=== PATIENT | female | born 1965 | race Caucasian/White ===

== ENCOUNTER 2019-10-12 18:05 | Inpatient (IN) ==
[2019-10-12] MEDS ORDERED: PROMETHAZINE 6.25 MG/50.25 ML BAG IV STA (18:17)
[2019-10-12] MEDS ORDERED: THIAMINE HCL 200 MG in SODIUM CHLORIDE 0.9% 50 ML IV STA (18:17)
[2019-10-12] MEDS ORDERED: SODIUM CHLORIDE 0.9% 1000ML 1,000 ML IV ONE ×2 (18:17→19:47)
[2019-10-12] MEDS ORDERED: LORazepam 1 MG/2 ML VIAL IV STA (18:17)
--- NOTE | 2019-10-12 18:30 | Emergency Department Note ---
Entered by Delia Benjamin acting as a scribe for History of Present Illness General Chief complaint: Mental Health Evaluation Stated complaint: MHID, ALCOHOL WITHDRAWL Time Seen by Provider: 10/12/19 18:08 Source: patient and EMS Mode of arrival: EMS Limitations: no limitations History of Present Illness Onset (ago): day(s) 1 Location: head Radiation: non-radiation Relieved By: + none Exacerbated By: + other (not drinking alcohol) Associated symptoms: + weakness and + other (+back pain, +urinary symptoms) Treatments prior to arrival: none The patient is a 54 year old male who presents to the ED with complaints of ETOH withdrawal. She was brought to the ED via EMS. She states she drank vodka and other store bought alcohol earlier today. She has been drinking every day for "awhile". She complains of back pain and states she feels weak. She denies any recent falls. She states she has experienced urinary symptoms. The patient was brought to the ED via EMS from the [facility], where she states "I just couldn't take the pain anymore". Home Medications Home Medications Medication Instructions Recorded Confirmed Type No Known Home Medications 10/13/19 10/13/19 History Allergies Allergy/AdvReac Type Severity Reaction Status Date / Time No Known Allergies Allergy Unknown Verified 10/13/19 03:34 Past Med/Surg History Medical History Alcohol abuse Depression Surgical History No history of previous surgery Family History Other Past medical history not known due to adoption Denies family history of Ovarian cancer Prostate cancer Myocardial infarction Breast cancer Colorectal cancer Social History Preferred Language: Korean marital status: Current Living Situation: Spouse and Family current occupational status: employed Feels Safe at Home: No Smoking Status: Current every day smoker Tobacco Type: cigarettes ; packs per day: 1 ; Hx Alcohol Use: No Hx Substance Use: No Dental Care, Regularly: No Seatbelt Use: always Review of Systems See HPI for pertinent positives & negatives. and A total of 10 systems reviewed and were otherwise negative Physical Exam Vital Signs Vital Signs - 24 hr 10/12/19 18:23 10/12/19 18:35 10/12/19 19:20 Temperature 36.7 C Temperature Source Oral Pulse Rate 100 H Pulse Rate [Bilateral Apical] 88 Pulse Rhythm Regular Pulse Strength Normal Respiratory Rate 18 20 Respiratory Effort / Characteristics Respiratory Depth Blood Pressure 128/78 Blood Pressure [Left Arm] 119/74 Blood Pressure Mean 94 Blood Pressure Mean [Left Arm] 89 Blood Pressure Position Lying Blood Pressure Position [Left Arm] Pulse Oximetry 93 95 96 Oxygen Delivery Method Room Air Room Air Room Air Sepsis Recent Fever Within 48 Hours No Sepsis New/Unexplained Change in Mental Status No Sepsis Action Taken by Nursing No Action Required 10/12/19 20:10 10/12/19 22:29 Temperature Temperature Source Pulse Rate Pulse Rate [Bilateral Apical] 87 91 H Pulse Rhythm Pulse Strength Respiratory Rate 20 16 Respiratory Effort / Characteristics Non-Labored Respiratory Depth Normal Blood Pressure Blood Pressure [Left Arm] 114/72 126/79 Blood Pressure Mean Blood Pressure Mean [Left Arm] 86 94 Blood Pressure Position Blood Pressure Position [Left Arm] Lying Pulse Oximetry 94 94 Oxygen Delivery Method Room Air Room Air Sepsis Recent Fever Within 48 Hours Sepsis New/Unexplained Change in Mental Status Sepsis Action Taken by Nursing GENERAL: The patient is awake and alert. The patient is very anxious. EYES: The conjunctivae are injected bilaterally. The pupils are dilated but reactive to light bilaterally. EARS, NOSE, MOUTH AND THROAT: The nose is without any evidence of any deformity. Mucous membranes are moist. Tongue is midline. NECK: The neck is nontender and supple. RESPIRATORY: Normal respiratory effort is noted there is no evidence of wheezing rhonchi or rales CARDIOVASCULAR: Regular rate and rhythm noted there no murmurs rubs or gallops normal S1 normal S2. GASTROINTESTINAL: The abdomen is moderately distended and diffusely tender. There is specific tenderness in the right upper and lower quadrants. BACK: No midline tenderness or or step-off noted range of motion in flexion extension as well as rotation no signs of muscle spasm noted MUSCULOSKELETAL/EXTREMITIES: There is no evidence of gross deformity full range of motion is noted in the hips and shoulders. SKIN: There is no obvious evidence of any rash. There are no petechiae, pallor or cyanosis noted. NEUROLOGIC: Patient is awake alert and oriented x3 strength is symmetric patellar reflexes are 2+ bilaterally PSYCH: The patient is awake and alert. She appears somewhat intoxicated and anxious. She is admitting to suicidal ideation. Course Course 1811: The patient was evaluated in room A9 and a complete history and physical were performed. 2199: The patient will be evaluated by mental health when she is clinically sober. Administered Medications Ioversol (Optiray 320 100ml) 94 ml IV ONCE PRN PRN Reason: Interaction Checking Stop: 10/16/19 19:56 Last Admin: 10/12/19 19:57 Dose: 94 ml Documented by: [id number] Discontinued Medications Thiamine HCl 200 mg/ Sodium (Chloride) 52 mls @ 208 mls/hr IV NOW STA Stop: 10/12/19 18:31 Last Infusion: 10/12/19 19:55 Dose: 0 mls/hr Documented by: [id number] Infusion: 10/12/19 19:54 Dose: 208 mls/hr Documented by: [id number] Admin: 10/12/19 19:44 Dose: 208 mls/hr Documented by: [id number] Sodium Chloride (Nss 1000ml) 1,000 mls @ 999 mls/hr IV .Q1H1M ONE Stop: 10/12/19 19:17 Last Infusion: 10/12/19 20:25 Dose: 0 mls/hr Documented by: [id number] Admin: 10/12/19 19:17 Dose: 999 mls/hr Documented by: [id number] Promethazine HCl (Phenergan) 6.25 mg in 50.25 mls @ 201 mls/hr IV NOW STA Stop: 10/12/19 18:31 Last Infusion: 10/12/19 19:43 Dose: 201 mls/hr Documented by: [id number] Admin: 10/12/19 19:17 Dose: 201 mls/hr Documented by: [id number] Lorazepam (Ativan) 1 mg in 2 mls @ 2 mls/min IV NOW STA Stop: 10/12/19 18:18 Last Admin: 10/12/19 19:17 Dose: 2 mls/min Documented by: [id number] Ceftriaxone Sodium (Rocephin) 1,000 mg in 50 mls @ 100 mls/hr IV NOW STA Stop: 10/12/19 19:55 Last Infusion: 10/12/19 20:26 Dose: 0 mls/hr Documented by: [id number] Admin: 10/12/19 19:55 Dose: 100 mls/hr Documented by: [id number] Magnesium Sulfate/Dextrose (Magnesium Sulfate / D5w) 1 gm in 100 mls @ 100 mls/hr IV Q1H MATTHEW Stop: 10/12/19 21:59 Last Infusion: 10/12/19 22:29 Dose: 0 mls/hr Documented by: [id number] Admin: 10/12/19 21:28 Dose: 100 mls/hr Documented by: [id number] Infusion: 10/12/19 21:26 Dose: 100 mls/hr Documented by: [id number] Admin: 10/12/19 20:26 Dose: 100 mls/hr Documented by: [id number] Sodium Chloride (Nss 1000ml) 1,000 mls @ 999 mls/hr IV .Q1H1M ONE Stop: 10/12/19 20:47 Last Infusion: 10/12/19 21:28 Dose: 0 mls/hr Documented by: [id number] Admin: 10/12/19 20:16 Dose: 999 mls/hr Documented by: [id number] Ketorolac Tromethamine (Toradol) 10 mg IV NOW ONE Stop: 10/13/19 00:27 Last Admin: 10/13/19 00:34 Dose: 10 mg Documented by: [id number] Medical Decision Making Differential Diagnosis Differential diagnosis includes etiologies such as alcohol intoxication, toxicologic, infection, hypoglycemia, electrolyte abnormalities, cardiac sources, intracerebral event, neurologic, as well as others were entertained. Medical Records Attestation: I reviewed the patient's medical records. Home Medications Current Medication List: was personally reviewed by me Laboratory Data Attestation: I reviewed the patient's lab results. Result diagrams: 10/12/19 18:59 10/12/19 18:59 Lab Results 10/12/19 10/12/19 10/12/19 Range/Units 18:55 18:55 18:59 WBC 5.39 (4.8-10.8) K/uL RBC 5.10 (4.2-5.4) M/uL Hgb 17.0 H (12.0-16.0) g/dL Hct 47.2 H (37-47) % MCV 92.5 (80-100) fL MCH 33.3 (25-34) pg MCHC 36.0 (32-36) g/dL RDW Std Deviation 48.8 H (36.4-46.3) fL RDW Coeff of Wilder 14.4 (11.5-14.5) % Plt Count 147 (130-400) K/uL MPV 10.6 H (7.4-10.4) fL Immature Gran % (Auto) 0.2 % Neut % (Auto) 46.2 % Lymph % (Auto) 43.6 % [place] % (Auto) 9.1 % Eos % (Auto) 0.2 % Baso % (Auto) 0.7 % Immature Gran # (Auto) 0.01 (0.00-0.02) K/uL Neut # (Auto) 2.49 (1.4-6.5) K/uL Lymph # (Auto) 2.35 (1.2-3.4) K/uL [place] # (Auto) 0.49 (0.11-0.59) K/uL Eos # (Auto) 0.01 (0-0.5) K/uL Baso # (Auto) 0.04 (0-0.2) K/uL PT INR APTT PTT Ratio Carboxyhemoglobin % THgb Sodium (136-145) mmol/L Potassium (3.5-5.1) mmol/L Chloride (98-107) mmol/L Carbon Dioxide (21-32) mmol/L Anion Gap (3-11) BUN (7-18) mg/dl Creatinine (0.6-1.2) mg/dl Est Cr Clr Drug Dosing ml/min Est GFR ( Amer) Est GFR (Non-Af Amer) BUN/Creatinine Ratio (10-20) Glucose (70-99) mg/dl Osmolality Calcium (8.5-10.1) mg/dl Magnesium (1.8-2.4) mg/dl Total Bilirubin (0.2-1) mg/dl AST (15-37) U/L ALT (12-78) U/L Alkaline Phosphatase (45-117) U/L Total Creatine Kinase (26-192) U/L Troponin I (0-0.045) ng/ml Total Protein (6.4-8.2) gm/dl Albumin (3.4-5.0) gm/dl Globulin (2.5-4.0) gm/dl Albumin/Globulin Ratio (0.9-2) Lipase (73-393) U/L HCG, Qual Urine Color Dark Yellow Urine Appearance Cloudy A (Clear) Urine pH 5.5 (4.5-7.5) Ur Specific [place] 1.018 (1.000-1.030) Urine Protein 1+ H (Negative) Urine Glucose (UA) Negative (Negative) Urine Ketones Trace H (Negative) Urine Blood Negative (Negative) Urine Nitrite Negative (Negative) Urine Bilirubin Negative (Negative) Urine Urobilinogen Negative (Negative) Ur Leukocyte Esterase 1+ H (Negative) Urine WBC (Auto) >30 H (0-5) /hpf Urine RBC (Auto) 0-4 (0-4) /hpf U Hyaline Cast (Auto) 1-5 (0-5) /lpf U Epithel Cells (Auto) >30 H (0-5) /lpf Urine Bacteria (Auto) 2+ H (Negative) Urine Mucus Present A (None Prsent) Salicylates Urine Opiates Screen Neg (Neg) Ur Methadone, Qual Neg (Neg) Acetaminophen Urine Barbiturates Neg (Neg) Ur Phencyclidine (PCP) Neg (Neg) U Amphetamin/Meth Scrn Neg (Neg) MDMA (Ecstasy) Screen Neg (Neg) U Benzodiazepines Scrn Neg (Neg) Ur Cocaine Metabolite Neg (Neg) U Marijuana (THC) Screen Neg (Neg) Ethyl Alcohol mg/dL (0-3) mg/dl 10/12/19 10/12/19 10/12/19 Range/Units 18:59 18:59 18:59 WBC (4.8-10.8) K/uL RBC (4.2-5.4) M/uL Hgb (12.0-16.0) g/dL Hct (37-47) % MCV (80-100) fL MCH (25-34) pg MCHC (32-36) g/dL RDW Std Deviation (36.4-46.3) fL RDW Coeff of Wilder (11.5-14.5) % Plt Count (130-400) K/uL MPV (7.4-10.4) fL Immature Gran % (Auto) % Neut % (Auto) % Lymph % (Auto) % [place] % (Auto) % Eos % (Auto) % Baso % (Auto) % Immature Gran # (Auto) (0.00-0.02) K/uL Neut # (Auto) (1.4-6.5) K/uL Lymph # (Auto) (1.2-3.4) K/uL [place] # (Auto) (0.11-0.59) K/uL Eos # (Auto) (0-0.5) K/uL Baso # (Auto) (0-0.2) K/uL PT Cancelled INR Cancelled APTT Cancelled PTT Ratio Cancelled Carboxyhemoglobin % THgb Sodium 136 (136-145) mmol/L Potassium 3.3 L (3.5-5.1) mmol/L Chloride 98 (98-107) mmol/L Carbon Dioxide 23 (21-32) mmol/L Anion Gap 15.0 H (3-11) BUN 13 (7-18) mg/dl Creatinine 0.71 (0.6-1.2) mg/dl Est Cr Clr Drug Dosing 80.6 ml/min Est GFR ( Amer) 111.9 Est GFR (Non-Af Amer) 96.6 BUN/Creatinine Ratio 17.6 (10-20) Glucose 89 (70-99) mg/dl Osmolality Calcium 8.7 (8.5-10.1) mg/dl Magnesium 1.5 L (1.8-2.4) mg/dl Total Bilirubin 0.6 (0.2-1) mg/dl AST 44 H (15-37) U/L ALT 33 (12-78) U/L Alkaline Phosphatase 115 (45-117) U/L Total Creatine Kinase 77 (26-192) U/L Troponin I < 0.015 (0-0.045) ng/ml Total Protein 8.0 (6.4-8.2) gm/dl Albumin 4.0 (3.4-5.0) gm/dl Globulin 4.0 (2.5-4.0) gm/dl Albumin/Globulin Ratio 1.0 (0.9-2) Lipase 77 (73-393) U/L HCG, Qual Urine Color Urine Appearance (Clear) Urine pH (4.5-7.5) Ur Specific [place] (1.000-1.030) Urine Protein (Negative) Urine Glucose (UA) (Negative) Urine Ketones (Negative) Urine Blood (Negative) Urine Nitrite (Negative) Urine Bilirubin (Negative) Urine Urobilinogen (Negative) Ur Leukocyte Esterase (Negative) Urine WBC (Auto) (0-5) /hpf Urine RBC (Auto) (0-4) /hpf U Hyaline Cast (Auto) (0-5) /lpf U Epithel Cells (Auto) (0-5) /lpf Urine Bacteria (Auto) (Negative) Urine Mucus (None Prsent) Salicylates Cancelled Urine Opiates Screen (Neg) Ur Methadone, Qual (Neg) Acetaminophen Cancelled Urine Barbiturates (Neg) Ur Phencyclidine (PCP) (Neg) U Amphetamin/Meth Scrn (Neg) MDMA (Ecstasy) Screen (Neg) U Benzodiazepines Scrn (Neg) Ur Cocaine Metabolite (Neg) U Marijuana (THC) Screen (Neg) Ethyl Alcohol mg/dL (0-3) mg/dl 10/12/19 10/12/19 10/12/19 Range/Units 18:59 18:59 18:59 WBC (4.8-10.8) K/uL RBC (4.2-5.4) M/uL Hgb (12.0-16.0) g/dL Hct (37-47) % MCV (80-100) fL MCH (25-34) pg MCHC (32-36) g/dL RDW Std Deviation (36.4-46.3) fL RDW Coeff of [place] (11.5-14.5) % Plt Count (130-400) K/uL MPV (7.4-10.4) fL Immature Gran % (Auto) % Neut % (Auto) % Lymph % (Auto) % [place] % (Auto) % Eos % (Auto) % Baso % (Auto) % Immature Gran # (Auto) (0.00-0.02) K/uL Neut # (Auto) (1.4-6.5) K/uL Lymph # (Auto) (1.2-3.4) K/uL [place] # (Auto) (0.11-0.59) K/uL Eos # (Auto) (0-0.5) K/uL Baso # (Auto) (0-0.2) K/uL PT INR APTT PTT Ratio Carboxyhemoglobin 7.2 % THgb Sodium (136-145) mmol/L Potassium (3.5-5.1) mmol/L Chloride (98-107) mmol/L Carbon Dioxide (21-32) mmol/L Anion Gap (3-11) BUN (7-18) mg/dl Creatinine (0.6-1.2) mg/dl Est Cr Clr Drug Dosing ml/min Est GFR ( Amer) Est GFR (Non-Af Amer) BUN/Creatinine Ratio (10-20) Glucose (70-99) mg/dl Osmolality Calcium (8.5-10.1) mg/dl Magnesium (1.8-2.4) mg/dl Total Bilirubin (0.2-1) mg/dl AST (15-37) U/L ALT (12-78) U/L Alkaline Phosphatase (45-117) U/L Total Creatine Kinase (26-192) U/L Troponin I (0-0.045) ng/ml Total Protein (6.4-8.2) gm/dl Albumin (3.4-5.0) gm/dl Globulin (2.5-4.0) gm/dl Albumin/Globulin Ratio (0.9-2) Lipase (73-393) U/L HCG, Qual Cancelled Urine Color Urine Appearance (Clear) Urine pH (4.5-7.5) Ur Specific [place] (1.000-1.030) Urine Protein (Negative) Urine Glucose (UA) (Negative) Urine Ketones (Negative) Urine Blood (Negative) Urine Nitrite (Negative) Urine Bilirubin (Negative) Urine Urobilinogen (Negative) Ur Leukocyte Esterase (Negative) Urine WBC (Auto) (0-5) /hpf Urine RBC (Auto) (0-4) /hpf U Hyaline Cast (Auto) (0-5) /lpf U Epithel Cells (Auto) (0-5) /lpf Urine Bacteria (Auto) (Negative) Urine Mucus (None Prsent) Salicylates Urine Opiates Screen (Neg) Ur Methadone, Qual (Neg) Acetaminophen Urine Barbiturates (Neg) Ur Phencyclidine (PCP) (Neg) U Amphetamin/Meth Scrn (Neg) MDMA (Ecstasy) Screen (Neg) U Benzodiazepines Scrn (Neg) Ur Cocaine Metabolite (Neg) U Marijuana (THC) Screen (Neg) Ethyl Alcohol mg/dL 236.0 H (0-3) mg/dl 10/12/19 10/12/19 10/12/19 Range/Units 18:59 20:50 20:50 WBC (4.8-10.8) K/uL RBC (4.2-5.4) M/uL Hgb (12.0-16.0) g/dL Hct (37-47) % MCV (80-100) fL MCH (25-34) pg MCHC (32-36) g/dL RDW Std Deviation (36.4-46.3) fL RDW Coeff of Wilder (11.5-14.5) % Plt Count (130-400) K/uL MPV (7.4-10.4) fL Immature Gran % (Auto) % Neut % (Auto) % Lymph % (Auto) % [place] % (Auto) % Eos % (Auto) % Baso % (Auto) % Immature Gran # (Auto) (0.00-0.02) K/uL Neut # (Auto) (1.4-6.5) K/uL Lymph # (Auto) (1.2-3.4) K/uL [place] # (Auto) (0.11-0.59) K/uL Eos # (Auto) (0-0.5) K/uL Baso # (Auto) (0-0.2) K/uL PT 10.0 INR 1.0 APTT 27.3 PTT Ratio 1.0 Carboxyhemoglobin % THgb Sodium (136-145) mmol/L Potassium (3.5-5.1) mmol/L Chloride (98-107) mmol/L Carbon Dioxide (21-32) mmol/L Anion Gap (3-11) BUN (7-18) mg/dl Creatinine (0.6-1.2) mg/dl Est Cr Clr Drug Dosing ml/min Est GFR ( Amer) Est GFR (Non-Af Amer) BUN/Creatinine Ratio (10-20) Glucose (70-99) mg/dl Osmolality Cancelled 330 H Calcium (8.5-10.1) mg/dl Magnesium (1.8-2.4) mg/dl Total Bilirubin (0.2-1) mg/dl AST (15-37) U/L ALT (12-78) U/L Alkaline Phosphatase (45-117) U/L Total Creatine Kinase (26-192) U/L Troponin I (0-0.045) ng/ml Total Protein (6.4-8.2) gm/dl Albumin (3.4-5.0) gm/dl Globulin (2.5-4.0) gm/dl Albumin/Globulin Ratio (0.9-2) Lipase (73-393) U/L HCG, Qual Urine Color Urine Appearance (Clear) Urine pH (4.5-7.5) Ur Specific [place] (1.000-1.030) Urine Protein (Negative) Urine Glucose (UA) (Negative) Urine Ketones (Negative) Urine Blood (Negative) Urine Nitrite (Negative) Urine Bilirubin (Negative) Urine Urobilinogen (Negative) Ur Leukocyte Esterase (Negative) Urine WBC (Auto) (0-5) /hpf Urine RBC (Auto) (0-4) /hpf U Hyaline Cast (Auto) (0-5) /lpf U Epithel Cells (Auto) (0-5) /lpf Urine Bacteria (Auto) (Negative) Urine Mucus (None Prsent) Salicylates Urine Opiates Screen (Neg) Ur Methadone, Qual (Neg) Acetaminophen Urine Barbiturates (Neg) Ur Phencyclidine (PCP) (Neg) U Amphetamin/Meth Scrn (Neg) MDMA (Ecstasy) Screen (Neg) U Benzodiazepines Scrn (Neg) Ur Cocaine Metabolite (Neg) U Marijuana (THC) Screen (Neg) Ethyl Alcohol mg/dL (0-3) mg/dl 10/12/19 10/12/19 Range/Units 20:51 21:24 WBC (4.8-10.8) K/uL RBC (4.2-5.4) M/uL Hgb (12.0-16.0) g/dL Hct (37-47) % MCV (80-100) fL MCH (25-34) pg MCHC (32-36) g/dL RDW Std Deviation (36.4-46.3) fL RDW Coeff of Wilder (11.5-14.5) % Plt Count (130-400) K/uL MPV (7.4-10.4) fL Immature Gran % (Auto) % Neut % (Auto) % Lymph % (Auto) % [place] % (Auto) % Eos % (Auto) % Baso % (Auto) % Immature Gran # (Auto) (0.00-0.02) K/uL Neut # (Auto) (1.4-6.5) K/uL Lymph # (Auto) (1.2-3.4) K/uL [place] # (Auto) (0.11-0.59) K/uL Eos # (Auto) (0-0.5) K/uL Baso # (Auto) (0-0.2) K/uL PT INR APTT PTT Ratio Carboxyhemoglobin % THgb Sodium (136-145) mmol/L Potassium (3.5-5.1) mmol/L Chloride (98-107) mmol/L Carbon Dioxide (21-32) mmol/L Anion Gap (3-11) BUN (7-18) mg/dl Creatinine (0.6-1.2) mg/dl Est Cr Clr Drug Dosing ml/min Est GFR ( Amer) Est GFR (Non-Af Amer) BUN/Creatinine Ratio (10-20) Glucose (70-99) mg/dl Osmolality Calcium (8.5-10.1) mg/dl Magnesium (1.8-2.4) mg/dl Total Bilirubin (0.2-1) mg/dl AST (15-37) U/L ALT (12-78) U/L Alkaline Phosphatase (45-117) U/L Total Creatine Kinase (26-192) U/L Troponin I (0-0.045) ng/ml Total Protein (6.4-8.2) gm/dl Albumin (3.4-5.0) gm/dl Globulin (2.5-4.0) gm/dl Albumin/Globulin Ratio (0.9-2) Lipase (73-393) U/L HCG, Qual Negative Urine Color Urine Appearance (Clear) Urine pH (4.5-7.5) Ur Specific [place] (1.000-1.030) Urine Protein (Negative) Urine Glucose (UA) (Negative) Urine Ketones (Negative) Urine Blood (Negative) Urine Nitrite (Negative) Urine Bilirubin (Negative) Urine Urobilinogen (Negative) Ur Leukocyte Esterase (Negative) Urine WBC (Auto) (0-5) /hpf Urine RBC (Auto) (0-4) /hpf U Hyaline Cast (Auto) (0-5) /lpf U Epithel Cells (Auto) (0-5) /lpf Urine Bacteria (Auto) (Negative) Urine Mucus (None Prsent) Salicylates 6.5 Urine Opiates Screen (Neg) Ur Methadone, Qual (Neg) Acetaminophen 2 L Urine Barbiturates (Neg) Ur Phencyclidine (PCP) (Neg) U Amphetamin/Meth Scrn (Neg) MDMA (Ecstasy) Screen (Neg) U Benzodiazepines Scrn (Neg) Ur Cocaine Metabolite (Neg) U Marijuana (THC) Screen (Neg) Ethyl Alcohol mg/dL (0-3) mg/dl Imaging Data Radiologist's Impression: Radiology results as stated below per my review and the radiologist's interpretation: XR chest 1V portable CLINICAL HISTORY: cough COMPARISON STUDY: Chest radiograph March 10, 2015. FINDINGS: Lung volumes are normal. Lungs are clear. There is no pneumothorax or pleural effusion. Cardiac size is normal. Mediastinal contours are normal. There is no evidence for pulmonary edema. Incidental note is made of several old left rib fractures. IMPRESSION: No acute cardiopulmonary findings. ACT 112: Negative or not required by law. Electronically signed by: Simón So M.D. 10/12/2019 6:[address] OF THE CERVICAL SPINE WITHOUT CONTRAST CLINICAL HISTORY: ETOH COMPARISON STUDY: Cervical spine CT March 12, 2015. TECHNIQUE: Helical axial images of the cervical spine were obtained without IV contrast. Sagittal and coronal reconstructions were viewed. Automated exposure control was utilized for the study. A dose lowering technique was utilized adhering to the principles of ALARA. FINDINGS: Alignment of the cervical spine is anatomic. Vertebral body heights are maintained. No acute cervical spine fracture or subluxation is present. There is no prevertebral edema. Facet joints are intact. IMPRESSION: No acute cervical spine fracture or subluxation. ACT 112: Negative or not required by law. Electronically signed by: Simón So M.D. 10/12/2019 8:[address] OF THE ABDOMEN AND PELVIS WITH CONTRAST CLINICAL HISTORY: ETOH COMPARISON STUDY: CT of the abdomen and pelvis March 10, 2015. TECHNIQUE: Following IV administration of 94 mL of Optiray-320, axial images of the abdomen and pelvis were obtained from the lung bases to the proximal femurs. Images were reviewed in the axial, sagittal, and coronal planes. IV contrast was administered without complication. Automated exposure control was utilized for the study. A dose lowering technique was utilized adhering to the principles of ALARA. CT DOSE: 1528.26 mGy.cm FINDINGS: Healing anterior right lower rib fracture is noted. There are several old left rib fractures. There is fatty infiltration of the liver. There is no evidence for traumatic injury to the liver, spleen, adrenal glands, kidneys or pancreas. There is no hydronephrosis. There is no evidence for a bowel obstruction. Colonic diverticulosis is noted without evidence for acute diverticulitis. The appendix is normal. Trace presacral fluid. There is an equivocal nondisplaced fracture of S4. Note is made of a mild compression fracture of T12 which is age indeterminate. IMPRESSION: 1. No evidence of traumatic injury to the solid abdominal viscera. 2. Fatty infiltration of the liver. 3. Age indeterminate mild T12 compression fracture. Small amount of presacral fluid. Equivocal nondisplaced S4 fracture. 4. Colonic diverticulosis without evidence for acute diverticulitis. ACT 112: Negative or not required by law. Electronically signed by: Simón So M.D. 10/12/2019 8:[address] OF THE HEAD WITHOUT CONTRAST CLINICAL HISTORY: ETOH COMPARISON STUDY: Head CT March 12, 2015. TECHNIQUE: Helical axial images of the head were obtained without IV contrast. Automated exposure control was utilized for the study. A dose lowering technique was utilized adhering to the principles of ALARA. FINDINGS: No acute intracranial hemorrhage, midline shift or mass effect is present. The ventricular system is unremarkable. The basilar cisterns are patent. No extra-axial collections are present. There are no findings to suggest acute dural sinus thrombosis or acute territorial infarct. No significant calvarial abnormalities are present. Visualized portions of the sinuses and mastoid air cells are clear. IMPRESSION: No acute intracranial findings. ACT 112: Negative or not required by law. Electronically signed by: Simón So M.D. 10/12/2019 8:27 PM ECG Data Attestation: I personally reviewed and interpreted this ECG as follows: Rate (beats per minute): 98 Rhythm: + normal sinus ECG Findings: + Other (No acute ST segments); no PACs and no PVCs Comparison ECG Date: from (07/29/2018) Change: the following changes noted (Increased rate, otherwise no change) Blood Pressure Blood Pressure Findings: Normal blood pressure Blood Pressure Disposition: did not require urgent referral MDM Narrative No calculated osmolar gap. The patient is a 54-year-old female who presented to the emergency department by ambulance for an evaluation. The patient presented to the [facility] for depression and suicidal ideation. She was felt to be intoxicated so she was sent to the emergency department for further medical clearance. The patient was also complaining of abdominal pain. The patient was treated with Ativan as well as IV fluids in the emergency department. She was reevaluated multiple times. The patient was found to have urinary tract infection and was subsequently treated with IV antibiotics. I discussed the patient's laboratory and radiographic studies with her. She was reevaluated multiple times. She was clinically intoxicated and at this time she is felt to be medically cleared as well as no longer clinically intoxicated. I discussed her case with the emergency department mental health cost manager. She is to be evaluated by the mental health cost manager for possible inpatient management. The patient is currently being evaluated by [facility] for possible inpatient management. The patient was signed out to Dr. Carrillo at change of shift. Please see his note for final disposition and final plan Impression & Plan Alcohol intoxication, Depression, Suicidal ideation, Compression fx, thoracic spine, Closed sacral fracture, Abdominal pain, UTI (urinary tract infection), Hypomagnesemia Discharge Plan Visit Data Chief Complaint: Mental Health Evaluation Stated Complaint: MHID, ALCOHOL WITHDRAWL ED Provider: Issa Huang Discharge Problem: Alcohol intoxication, Depression, Suicidal ideation, Compression fx, thoracic spine, Closed sacral fracture, Abdominal pain, UTI (urinary tract infection), Hy pomagnesemia Patient Disposition: Home - Self-Care Forms Stand Alone Forms: My [facility], Suicide Prevention Resources, Important Visit Information Prescriptions Prescriptions: No Action No Known Home Medications RF: 0 Referrals Referrals: PCP,NO [Primary Care Provider] - The scribe's documentation has been prepared under my direction and personally reviewed by me in its entirety. I confirm that the note above accurately reflects all work, treatment, procedures, and medical decision making performed by me.
--- NOTE | 2019-10-12 18:57 | XRay Report ---
XR chest 1V portable CLINICAL HISTORY: cough COMPARISON STUDY: Chest radiograph March 10, 2015. FINDINGS: Lung volumes are normal. Lungs are clear. There is no pneumothorax or pleural effusion. Car diac size is normal. Mediastinal contours are normal. There is no evidence for pulmonary edema. Incid ental note is made of several old left rib fractures. IMPRESSION: No acute cardiopulmonary findings. ACT 112: Negative or not required by law. Electronically signed by: Simón So M.D. 10/12/2019 6:56 PM
[2019-10-12 19:06] LABS: Appearance Urine Cloudy (Clear); Bacteria Urine Automated 2+ (Negative); Bilirubin Urine Negative (Negative); Blood Urine Negative (Negative); Color Urine Dark Yellow; Epithelial Cell Urine Auto >30 /lpf (0-5); Glucose Urine UA Negative (Negative); Ketones Urine Trace (Negative); Leukocyte Esterase Urine 1+ (Negative); Nitrite Urine Negative (Negative); Protein Urine 1+ (Negative); RBC Urine Automated 0-4 /hpf (0-4); Specific Gravity Urine 1.018 (1.000-1.030); Urobilinogen Urine Negative (Negative); WBC Urine Automated >30 /hpf (0-5); pH Urine 5.5 (4.5-7.5)
[2019-10-12 19:16] LABS: Mucus Urine Present (None Prsent)
[2019-10-12 19:22] LABS: Basophils # (auto) 0.04 K/uL (0-0.2); Basophils % (auto) 0.7 %; Eosinophils # (auto) 0.01 K/uL (0-0.5); Eosinophils % (auto) 0.2 %; Hematocrit (blood only) 47.2 % (37-47); Immature Granulocytes # (auto) 0.01 K/uL (0.00-0.02); Immature Granulocytes % (auto) 0.2 %; Lymphocytes # (auto) 2.35 K/uL (1.2-3.4); Lymphocytes % (auto) 43.6 %; Mean Corpuscular Hemoglobin 33.3 pg (25-34); Mean Corpuscular Volume 92.5 fL (80-100); Mean Platelet Volume 10.6 fL (7.4-10.4); Monocytes # (auto) 0.49 K/uL (0.11-0.59); Monocytes % (auto) 9.1 %; Neutrophils # (auto) 2.49 K/uL (1.4-6.5); Neutrophils % (auto) 46.2 %; Platelet Count 147 K/uL (130-400); RDW Coefficient of Variation 14.4 % (11.5-14.5); RDW Standard Deviation 48.8 fL (36.4-46.3); White Blood Count 5.39 K/uL (4.8-10.8)
[2019-10-12] MEDS ORDERED: cefTRIAXone SODIUM 1,000 MG/50 ML BAG IV STA (19:26)
[2019-10-12 19:36] LABS: Amphetamines+Metham, Urine Neg (Neg); Barbiturates, Urine Neg (Neg); Benzodiazepine, Urine Neg (Neg); Cocaine, Urine Neg (Neg); MDMA (Ecstacy), Urine Neg (Neg); Methadone, Urine Neg (Neg); Opiate, Urine Neg (Neg); Phencyclidine, Urine Neg (Neg)
[2019-10-12 19:42] LABS: Alanine Aminotransferase 33 U/L (12-78); Aspartate Aminotransferase 44 U/L (15-37); BUN Creatinine Ratio 17.6 (10-20); Blood Urea Nitrogen 13 mg/dl (7-18); Calcium 8.7 mg/dl (8.5-10.1); Carbon Dioxide 23 mmol/L (21-32); Chloride 98 mmol/L (98-107); Creatinine Clr Calc Pharmacy 80.6 ml/min; Est GFR (African American) 111.9; Est GFR (Non-African American) 96.6; Glucose 89 mg/dl (70-99); Lipase 77 U/L (73-393); Magnesium 1.5 mg/dl (1.8-2.4); Potassium 3.3 mmol/L (3.5-5.1); Sodium 136 mmol/L (136-145)
[2019-10-12 19:47] LABS: Alkaline Phosphatase 115 U/L (45-117); Bilirubin,Total 0.6 mg/dl (0.2-1); Creatine Kinase 77 U/L (26-192); Troponin I < 0.015 ng/ml (0-0.045)
[2019-10-12] MEDS ORDERED: IOVERSOL 100ml IV PRN (19:57)
[2019-10-12] MEDS: MAGNESIUM SULFATE / D5W 1 GM/100 ML BAG IV SCH ×2 (20:26→21:28)
--- NOTE | 2019-10-12 20:28 | CT Scan Report ---
CT OF THE HEAD WITHOUT CONTRAST CLINICAL HISTORY: ETOH COMPARISON STUDY: Head CT March 12, 2015. TECHNIQUE: Helical axial images of the head were obtained without IV contrast. Automated exposure con trol was utilized for the study. A dose lowering technique was utilized adhering to the principles o f ALARA. FINDINGS: No acute intracranial hemorrhage, midline shift or mass effect is present. The ventricular system is unremarkable. The basilar cisterns are patent. No extra-axial collections are present. Ther e are no findings to suggest acute dural sinus thrombosis or acute territorial infarct. No significan t calvarial abnormalities are present. Visualized portions of the sinuses and mastoid air cells are c lear. IMPRESSION: No acute intracranial findings. ACT 112: Negative or not required by law. Electronically signed by: Simón So M.D. 10/12/2019 8:27 PM
--- NOTE | 2019-10-12 20:40 | CT Scan Report ---
CT OF THE CERVICAL SPINE WITHOUT CONTRAST CLINICAL HISTORY: ETOH COMPARISON STUDY: Cervical spine CT March 12, 2015. TECHNIQUE: Helical axial images of the cervical spine were obtained without IV contrast. Sagittal a nd coronal reconstructions were viewed. Automated exposure control was utilized for the study. A do se lowering technique was utilized adhering to the principles of ALARA. FINDINGS: Alignment of the cervical spine is anatomic. Vertebral body heights are maintained. No acut e cervical spine fracture or subluxation is present. There is no prevertebral edema. Facet joints are intact. IMPRESSION: No acute cervical spine fracture or subluxation. ACT 112: Negative or not required by law. Electronically signed by: Simón So M.D. 10/12/2019 8:38 PM
--- NOTE | 2019-10-12 20:53 | CT Scan Report ---
CT OF THE ABDOMEN AND PELVIS WITH CONTRAST CLINICAL HISTORY: ETOH COMPARISON STUDY: CT of the abdomen and pelvis March 10, 2015. TECHNIQUE: Following IV administration of 94 mL of Optiray-320, axial images of the abdomen and pelvi s were obtained from the lung bases to the proximal femurs. Images were reviewed in the axial, sagitt al, and coronal planes. IV contrast was administered without complication. Automated exposure contro l was utilized for the study. A dose lowering technique was utilized adhering to the principles of A JOSE LUIS. CT DOSE: 1528.26 mGy.cm FINDINGS: Healing anterior right lower rib fracture is noted. There are several old left rib fracture s. There is fatty infiltration of the liver. There is no evidence for traumatic injury to the liver, spleen, adrenal glands, kidneys or pancreas. There is no hydronephrosis. There is no evidence for a b owel obstruction. Colonic diverticulosis is noted without evidence for acute diverticulitis. The appe ndix is normal. Trace presacral fluid. There is an equivocal nondisplaced fracture of S4. Note is mad e of a mild compression fracture of T12 which is age indeterminate. IMPRESSION: 1. No evidence of traumatic injury to the solid abdominal viscera. 2. Fatty infiltration of the liver. 3. Age indeterminate mild T12 compression fracture. Small amount of presacral fluid. Equivocal nondis placed S4 fracture. 4. Colonic diverticulosis without evidence for acute diverticulitis. ACT 112: Negative or not required by law. Electronically signed by: Simón So M.D. 10/12/2019 8:51 PM
[2019-10-12 21:13] LABS: Partial Thromboplastin Time 27.3 Seconds (21.0-31.0)
[2019-10-12 21:31] LABS: Pregnancy Test, Serum Negative (Negative)
[2019-10-12 22:04] LABS: Salicylate 6.5 mg/dl (2.8-20)
[2019-10-13] MEDS ORDERED: KETOROLAC TROMETHAMINE 15 MG/ML VIAL IV ONE (00:26)
[2019-10-13] MEDS ORDERED: LORazepam 1 MG/2 ML VIAL IV STA (04:12)
[2019-10-13] MEDS ORDERED: GABAPENTIN 1200MG ALCOHOL WITHDRAWAL LOAD PO STA ×2 (04:39→11:09)
[2019-10-13] MEDS ORDERED: GABAPENTIN 600 MG TAB PO SCH ×3 (04:45→16:00)
--- NOTE | 2019-10-13 04:53 | Emergency Department Note ---
ED Visit Note ED Physician Sign Out Note: 54 yr old female wih history of depression and alcohol use arrives this evening after initially going to [place] for psychiatric evaluation. She was too intoxicated and transferred here by EMS for further evaluation. Initially evaluated and treated by Dr Huang. Recieved a few doses of ativan for shakes by time sign out to me. 3 [facility] evaluated patient on 201 basis but due to concerns for withdrawal requested I place patient on gabapentin protocol. Ordered this (1200mg PO as >50kg and >30 CrCl) as well as tapering doses. Patient stable throughout night without further issues and signed out to Dr Griggs pending further monitoring. Edgar Carrillo MD
--- NOTE | 2019-10-13 10:38 | Electrocardiogram Report ---
Test Reason : Blood Pressure : / mmHG Vent. Rate : 098 BPM Atrial Rate : 098 BPM P-R Int : 132 ms QRS Dur : 080 ms QT Int : 356 ms P-R-T Axes : 080 070 074 degrees QTc Int : 454 ms Normal sinus rhythm Normal ECG When compared with ECG of 29-JUL-2018 11:48, No significant change was found Confirmed by Issa Vázquez ([id number]) on 10/13/2019 10:38:05 AM Referred By: REFERRED SELF Confirmed By:Issa Vázquez
[2019-10-13] MEDS ORDERED: MAGNESIUM HYDROXIDE SUSP 30 ML UDC PO PRN (11:07)
[2019-10-13] MEDS ORDERED: BISMUTH SUBSALICYLATE PER ML OMNICELL CHARGE PO PRN (11:07)
[2019-10-13] MEDS ORDERED: SODIUM CHLORIDE 0.65% NA SOLN 45 ML (OCEAN) PRN (11:07)
[2019-10-13] MEDS ORDERED: ALUMINUM/MAGNESIUM SUSP 30 ML UDC PO PRN (11:07)
[2019-10-13] MEDS ORDERED: NICOTINE POLACRILEX 2 MG GUM MT PRN (14:50)
--- NOTE | 2019-10-13 15:20 | Allied Health Admission Assmnt ---
Date of Service October 13, 2019 Impression / Recommendations Protective Factors Assessment Employed: No (Fired from [employer] on 09/12/2019) Psychiatric History Identifying Data LAMONT MEDINA is a 54-year-old F who currently lives in [] [alone] with [], has a history of [], and was admitted on 10/13/19 12:08 on a [201 voluntary] [302 involuntary] commitment for []. Chief Complaint "[]". Past Psychiatric History Current Psychiatric Diagnosis: Hx of depression/anxiety Describe Attempts in the Past: denies Allergies Allergy/AdvReac Type Severity Reaction Status Date / Time No Known Allergies Allergy Unknown Verified 10/13/19 03:34 Home Medications Home Medications Medication Instructions Recorded Confirmed Type No Known Home Medications 10/13/19 10/13/19 History Family History Family History of: Alcoholism/Drug Abuse Alcohol History Hx of Alcohol Use Over the Past 12 Months: Yes (Sober 5 years - relapse 2 weeks ago) Smoking Use Have You Smoked or Used Tobacco Products in the Last 30 Days: Yes tobacco type: cigarettes Smoking Status: Current every day smoker Smoking packs per day: 1 Substance History Hx of Prescription Med Misuse Over the Past 12 Months: No Hx of Over the Counter Med Misuse Over the Past 12 Months: No Hx of Inhalent Misuse Over the Past 12 Months: No Hx of Organic Substance Use Over the Past 12 Months: No Hx of Illegal Substances/Street Drug Use Over Past 12 Months: No Problems as a Result of Past Substance Use: None Identified Personal History Living Arrangements: Home Beliefs That Will Affect Care: None Patient History Medical History Alcohol abuse Depression Surgical History No history of previous surgery Family History Other Past medical history not known due to adoption Denies family history of Ovarian cancer Prostate cancer Myocardial infarction Breast cancer Colorectal cancer Social History Preferred Language: Afghan Communication Ability: Effective 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 Beliefs That Will Affect Care: None marital status: Current Living Situation: Spouse and Family current occupational status: employed Feels Safe at Home: No Smoking Status: Current every day smoker Tobacco Type: cigarettes ; packs per day: 1 ; Hx Alcohol Use: No Hx Substance Use: No Dental Care, Regularly: No Seatbelt Use: always Physical Exam Vital Signs (Past 24 Hours) Last Vital Signs Temp 37.2 C 10/13/19 12:56 Pulse 96 H 10/13/19 12:56 Resp 18 10/13/19 12:56 BP 107/75 10/13/19 12:56 Pulse Ox 96 10/13/19 11:56 Results & Data Laboratory Results Laboratory Results - last 24 hr 10/12/19 10/12/19 10/12/19 18:55 18:55 18:59 WBC 5.39 RBC 5.10 Hgb 17.0 H Hct 47.2 H MCV 92.5 MCH 33.3 MCHC 36.0 RDW Std Deviation 48.8 H RDW Coeff of Wilder 14.4 Plt Count 147 MPV 10.6 H Immature Gran % (Auto) 0.2 Neut % (Auto) 46.2 Lymph % (Auto) 43.6 Johnson % (Auto) 9.1 Eos % (Auto) 0.2 Baso % (Auto) 0.7 Immature Gran # (Auto) 0.01 Neut # (Auto) 2.49 Lymph # (Auto) 2.35 Johnson # (Auto) 0.49 Eos # (Auto) 0.01 Baso # (Auto) 0.04 PT INR APTT PTT Ratio Carboxyhemoglobin Sodium Potassium Chloride Carbon Dioxide Anion Gap BUN Creatinine Est Cr Clr Drug Dosing Est GFR ( Amer) Est GFR (Non-Af Amer) BUN/Creatinine Ratio Glucose Osmolality Calcium Magnesium Total Bilirubin AST ALT Alkaline Phosphatase Total Creatine Kinase Troponin I Total Protein Albumin Globulin Albumin/Globulin Ratio Lipase Folate HCG, Qual Urine Color Dark Yellow Urine Appearance Cloudy A Urine pH 5.5 Ur Specific Phelps 1.018 Urine Protein 1+ H Urine Glucose (UA) Negative Urine Ketones Trace H Urine Blood Negative Urine Nitrite Negative Urine Bilirubin Negative Urine Urobilinogen Negative Ur Leukocyte Esterase 1+ H Urine WBC (Auto) >30 H Urine RBC (Auto) 0-4 U Hyaline Cast (Auto) 1-5 U Epithel Cells (Auto) >30 H Urine Bacteria (Auto) 2+ H Urine Mucus Present A Salicylates Urine Opiates Screen Neg Ur Methadone, Qual Neg Acetaminophen Urine Barbiturates Neg Ur Phencyclidine (PCP) Neg U Amphetamin/Meth Scrn Neg MDMA (Ecstasy) Screen Neg U Benzodiazepines Scrn Neg Ur Cocaine Metabolite Neg U Marijuana (THC) Screen Neg Ethyl Alcohol mg/dL 10/12/19 10/12/19 10/12/19 18:59 18:59 18:59 WBC RBC Hgb Hct MCV MCH MCHC RDW Std Deviation RDW Coeff of Wilder Plt Count MPV Immature Gran % (Auto) Neut % (Auto) Lymph % (Auto) Johnson % (Auto) Eos % (Auto) Baso % (Auto) Immature Gran # (Auto) Neut # (Auto) Lymph # (Auto) Johnson # (Auto) Eos # (Auto) Baso # (Auto) PT Cancelled INR Cancelled APTT Cancelled PTT Ratio Cancelled Carboxyhemoglobin Sodium 136 Potassium 3.3 L Chloride 98 Carbon Dioxide 23 Anion Gap 15.0 H BUN 13 Creatinine 0.71 Est Cr Clr Drug Dosing 80.6 Est GFR ( Amer) 111.9 Est GFR (Non-Af Amer) 96.6 BUN/Creatinine Ratio 17.6 Glucose 89 Osmolality Calcium 8.7 Magnesium 1.5 L Total Bilirubin 0.6 AST 44 H ALT 33 Alkaline Phosphatase 115 Total Creatine Kinase 77 Troponin I < 0.015 Total Protein 8.0 Albumin 4.0 Globulin 4.0 Albumin/Globulin Ratio 1.0 Lipase 77 Folate HCG, Qual Urine Color Urine Appearance Urine pH Ur Specific Phelps Urine Protein Urine Glucose (UA) Urine Ketones Urine Blood Urine Nitrite Urine Bilirubin Urine Urobilinogen Ur Leukocyte Esterase Urine WBC (Auto) Urine RBC (Auto) U Hyaline Cast (Auto) U Epithel Cells (Auto) Urine Bacteria (Auto) Urine Mucus Salicylates Cancelled Urine Opiates Screen Ur Methadone, Qual Acetaminophen Cancelled Urine Barbiturates Ur Phencyclidine (PCP) U Amphetamin/Meth Scrn MDMA (Ecstasy) Screen U Benzodiazepines Scrn Ur Cocaine Metabolite U Marijuana (THC) Screen Ethyl Alcohol mg/dL 10/12/19 10/12/19 10/12/19 18:59 18:59 18:59 WBC RBC Hgb Hct MCV MCH MCHC RDW Std Deviation RDW Coeff of Wilder Plt Count MPV Immature Gran % (Auto) Neut % (Auto) Lymph % (Auto) Johnson % (Auto) Eos % (Auto) Baso % (Auto) Immature Gran # (Auto) Neut # (Auto) Lymph # (Auto) Johnson # (Auto) Eos # (Auto) Baso # (Auto) PT INR APTT PTT Ratio Carboxyhemoglobin 7.2 Sodium Potassium Chloride Carbon Dioxide Anion Gap BUN Creatinine Est Cr Clr Drug Dosing Est GFR ( Amer) Est GFR (Non-Af Amer) BUN/Creatinine Ratio Glucose Osmolality Calcium Magnesium Total Bilirubin AST ALT Alkaline Phosphatase Total Creatine Kinase Troponin I Total Protein Albumin Globulin Albumin/Globulin Ratio Lipase Folate HCG, Qual Cancelled Urine Color Urine Appearance Urine pH Ur Specific Phelps Urine Protein Urine Glucose (UA) Urine Ketones Urine Blood Urine Nitrite Urine Bilirubin Urine Urobilinogen Ur Leukocyte Esterase Urine WBC (Auto) Urine RBC (Auto) U Hyaline Cast (Auto) U Epithel Cells (Auto) Urine Bacteria (Auto) Urine Mucus Salicylates Urine Opiates Screen Ur Methadone, Qual Acetaminophen Urine Barbiturates Ur Phencyclidine (PCP) U Amphetamin/Meth Scrn MDMA (Ecstasy) Screen U Benzodiazepines Scrn Ur Cocaine Metabolite U Marijuana (THC) Screen Ethyl Alcohol mg/dL 236.0 H 10/12/19 10/12/19 10/12/19 18:59 20:50 20:50 WBC RBC Hgb Hct MCV MCH MCHC RDW Std Deviation RDW Coeff of Wilder Plt Count MPV Immature Gran % (Auto) Neut % (Auto) Lymph % (Auto) Johnson % (Auto) Eos % (Auto) Baso % (Auto) Immature Gran # (Auto) Neut # (Auto) Lymph # (Auto) Johnson # (Auto) Eos # (Auto) Baso # (Auto) PT 10.0 INR 1.0 APTT 27.3 PTT Ratio 1.0 Carboxyhemoglobin Sodium Potassium Chloride Carbon Dioxide Anion Gap BUN Creatinine Est Cr Clr Drug Dosing Est GFR ( Amer) Est GFR (Non-Af Amer) BUN/Creatinine Ratio Glucose Osmolality Cancelled 330 H Calcium Magnesium Total Bilirubin AST ALT Alkaline Phosphatase Total Creatine Kinase Troponin I Total Protein Albumin Globulin Albumin/Globulin Ratio Lipase Folate HCG, Qual Urine Color Urine Appearance Urine pH Ur Specific Phelps Urine Protein Urine Glucose (UA) Urine Ketones Urine Blood Urine Nitrite Urine Bilirubin Urine Urobilinogen Ur Leukocyte Esterase Urine WBC (Auto) Urine RBC (Auto) U Hyaline Cast (Auto) U Epithel Cells (Auto) Urine Bacteria (Auto) Urine Mucus Salicylates Urine Opiates Screen Ur Methadone, Qual Acetaminophen Urine Barbiturates Ur Phencyclidine (PCP) U Amphetamin/Meth Scrn MDMA (Ecstasy) Screen U Benzodiazepines Scrn Ur Cocaine Metabolite U Marijuana (THC) Screen Ethyl Alcohol mg/dL 10/12/19 10/12/19 10/13/19 20:51 21:24 05:24 WBC RBC Hgb Hct MCV MCH MCHC RDW Std Deviation RDW Coeff of Wilder Plt Count MPV Immature Gran % (Auto) Neut % (Auto) Lymph % (Auto) Johnson % (Auto) Eos % (Auto) Baso % (Auto) Immature Gran # (Auto) Neut # (Auto) Lymph # (Auto) Johnson # (Auto) Eos # (Auto) Baso # (Auto) PT INR APTT PTT Ratio Carboxyhemoglobin Sodium Potassium Chloride Carbon Dioxide Anion Gap BUN Creatinine Est Cr Clr Drug Dosing Est GFR ( Amer) Est GFR (Non-Af Amer) BUN/Creatinine Ratio Glucose Osmolality Calcium Magnesium Total Bilirubin AST ALT Alkaline Phosphatase Total Creatine Kinase Troponin I Total Protein Albumin Globulin Albumin/Globulin Ratio Lipase Folate 4.42 L HCG, Qual Negative Urine Color Urine Appearance Urine pH Ur Specific Phelps Urine Protein Urine Glucose (UA) Urine Ketones Urine Blood Urine Nitrite Urine Bilirubin Urine Urobilinogen Ur Leukocyte Esterase Urine WBC (Auto) Urine RBC (Auto) U Hyaline Cast (Auto) U Epithel Cells (Auto) Urine Bacteria (Auto) Urine Mucus Salicylates 6.5 Urine Opiates Screen Ur Methadone, Qual Acetaminophen 2 L Urine Barbiturates Ur Phencyclidine (PCP) U Amphetamin/Meth Scrn MDMA (Ecstasy) Screen U Benzodiazepines Scrn Ur Cocaine Metabolite U Marijuana (THC) Screen Ethyl Alcohol mg/dL Current Inpatient Medications Current Inpatient Medications: Current Inpatient Medications Acetaminophen (Tylenol) 650 mg PO Q4H PRN PRN Reason: Headache or Minor Fever Stop: 11/12/19 11:06 Al Hydrox/Mg Hydrox/Simethicone (Maalox) 30 ml PO Q4H PRN PRN Reason: GI Upset Stop: 11/12/19 11:06 Bismuth Subsalicylate (Kaopectate) 15 ml PO PRN PRN PRN Reason: Loose Stool Stop: 11/12/19 11:06 Gabapentin (Neurontin) 600 mg PO Q6H MATTHEW Stop: 10/13/19 16:01 Gabapentin (Neurontin) 600 mg PO Q8H MATTHEW Stop: 10/14/19 18:01 Gabapentin (Neurontin) 600 mg PO Q12H MATTHEW Stop: 10/15/19 18:01 Gabapentin (Neurontin) 600 mg PO Q24H MATTHEW Stop: 10/16/19 18:01 Hydroxyzine HCl (Vistaril) 50 mg PO HSZ PRN PRN Reason: Insomnia Stop: 11/12/19 11:06 Hydroxyzine HCl (Vistaril) 25 mg PO Q4H PRN PRN Reason: Anxiety Stop: 11/12/19 11:06 Ioversol (Optiray 320 100ml) 94 ml IV ONCE PRN PRN Reason: Interaction Checking Stop: 10/16/19 19:56 Last Admin: 10/12/19 19:57 Dose: 94 ml Documented by: Lorazepam (Ativan) 1 - 3 mg PO UD PRN; Protocol PRN Reason: EtoH Withdrawal AWSS 6-10+ Stop: 11/12/19 11:08 Magnesium Hydroxide (Milk Of Magnesia) 30 ml PO DAILY PRN PRN Reason: Constipation Stop: 11/12/19 11:06 Miscellaneous (Remove Nicoderm Patch) 1 ea N/A DAILY@1459 [facility] Stop: 11/13/19 08:58 Nicotine (Nicoderm Cq) 21 mg TD TODAY@1500 MATTHEW Stop: 11/12/19 14:59 Nicotine Polacrilex (Nicorette 2mg) 1 piece MT PRN PRN PRN Reason: nicotine cravings Stop: 11/12/19 14:49 Sodium Chloride (Clarke Nasal) 1 - 2 sprays NA PRN PRN PRN Reason: Nasal Dryness/Congestion Stop: 11/12/19 11:06
[2019-10-13] MEDS: NICOTINE 21 MG/24 HR TDSY TD SCH (15:28)
--- NOTE | 2019-10-13 15:36 | Emergency Department Note ---
ED Visit Note I received this patient in signout at the change of shift pending a mental health disposition. Patient has been evaluated by 3 S. and they requested monitoring for concern over alcohol withdrawal. Patient did receive p.o. gabapentin 1200 mg prior to my assuming care. Vital signs have remained stable. 3 S. has accepted the patient to their unit for further care on a 201. .
[2019-10-13] MEDS: ACETAMINOPHEN 325 MG TAB PO PRN (19:24)
[2019-10-14] MEDS ORDERED: GABAPENTIN 600 MG TAB PO SCH (00:41)
[2019-10-14] MEDS: GABAPENTIN 600 MG TAB PO SCH ×3 (02:14→17:15)
[2019-10-14] MEDS: ACETAMINOPHEN 325 MG TAB PO PRN ×3 (05:10→20:35)
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
[2019-10-14] MEDS: LORazepam 1 MG TAB PO PRN ×2 (10:24→14:39)
[2019-10-14] MEDS: NICOTINE 21 MG/24 HR TDSY TD SCH ×2 (11:53→11:54)
[2019-10-15] MEDS ORDERED: GABAPENTIN 600 MG TAB PO SCH (04:41)
[2019-10-15] MEDS: GABAPENTIN 600 MG TAB PO SCH ×2 (06:16→17:41)
[2019-10-15] MEDS: NICOTINE 21 MG/24 HR TDSY TD SCH (08:08)
[2019-10-15] MEDS: LORazepam 1 MG TAB PO PRN (12:59)
--- NOTE | 2019-10-15 13:06 | Psychiatric Progress Note ---
Date of Service October 15, 2019 Impression / Recommendations Impression 54-year-old female from [place] who has a history of alcohol dependence and depression NOS and presents with suicidal ideation in the context of extremely heavy alcohol intake and withdrawal. She endorses multiple stressors, including recent job loss and financial strain. She is also been using her 's prescription opioid medications, and has not been forthcoming regarding the extent of her substance use. She signed in voluntarily, but has a backup 302 petition. She is being treated for alcohol withdrawal, and has gradually been more agreeable with the remainder of her treatment plan. She did have a phone meeting with her daughter today, and is agreeable with referral for substance abuse counseling. She remains at risk for suicide if discharged prematurely as little about her situation has changed, though presently she is denying SI. (1) Suicidal ideation: 3 -continue voluntary inpatient treatment, with every 15 minute checks for safety. -Encourage participation in unit groups and therapy, work on healthy coping skills and discharge safety plan. -Recommend family meeting with and daughter, including review of safety concerns at home, specifically access to alcohol, controlled substances (taking 's opiates), weapons and other medications. She denies access to guns. 10/14 - Denies SI today (2) Alcohol dependence: 3/ -Long history of alcohol dependence, multiple episodes of withdrawal, hospitalizations, and inpatient rehabs. Patient does not forthcoming regarding alcohol use, stating she has been sober for 5 years, when she was in fact seen in our ER 14 months ago, was intoxicated and reported drinking daily, and was in alcohol withdrawal, which indicates consistent and significant alcohol intake. -Reviewed risks of continued alcohol abuse, including worsening medical problems, liver disease, withdrawal, worsening mood and anxiety, SI and self- harm. She indicates understanding, but poor insight and judgment, and is refusing treatment recommendations including IOP and inpatient rehab. -Continue gabapentin taper and AWSS protocol for withdrawal. Recovery protocol. -Avoid prescription of controlled substances due to the high risk of abuse/misuse/negative outcomes. -Brief intervention was offered and accepted. Intervention was greater than 5 min in length. Brief interventions include: 1. Assess Readiness to Quit, 2. Advise: Help Patient to Reduce or Abstain from Alcohol, 3. Agree: Set Specific, Feasible Goals, 4. Assist: Anticipate barriers, Problem-Solving Solutions. Social work to 5. Arrange: Referrals to appropriate treatment. Summary of intervention: The patient is in precontemplation stage with regards to transtheoretical model of change. The patient is advised to decrease alcohol consumption due to depressant effects and risk of interactions with prescription medications. The patient agreed to consider treatment recommendations, and will be provided with recovery materials to continue to education self on how to cope with their condition without drinking. 10/14 - Pt continues to demonstrate poor insight as to how her alcohol use has impacted her mood and her relationships with others - Family meeting held today with daughter via phone - pt admitting it was stressful as they have "different priorities" - Pt is willing for a therapist, and we will explore substance abuse counseling (3) Substance or medication-induced depressive disorder: 10/13 -On review of records and on interview today, patient reports depressive symptoms that occur in the setting of heavy, daily alcohol use. She may be minimizing her mood symptoms today, as she is focused on discharge. Based on available information, the most appropriate diagnosis is substance induced depression, and discussed this with the patient including diagnosis and treatment, namely abstinence from alcohol opiates and substance abuse treatment. -Patient had UDS in 08/2019 that was +opiates and reports taking her 's narcotics. Advised against this, and reviewed risk of CLINICAL PRACTICE CONSULTANT depression when combined w/ alcohol. 10/14 - While patient continues to deny significant mood symptoms prior to ~1 month ago, she does admit to history of anxiety since her 's open heart surgery - We discussed that medications are not clearly indicated at this time, but use of prn hydroxyzine was encouraged for anxiety as needed (4) Abnormal urinalysis: UA appears contaminated, with > 30 WBCs -will not treat with antibiotics as patient asymptomatic and appears it was a contaminated sample, culture pending. 10/14 - Urine culture results reviewed. Multiple organisms consistent with skin ester - likely contamination. Will continue with plan above, as patient remains asymptomatic Risk Factors Assessment Male: No : Yes Do You Have Access To A Gun?: No Health Problems: Yes (alcohol withdrawal) Mental Health Diagnoses: Yes Substance Use Disorders: Yes Previous Attempt: No Previous Psychiatric Hospitalization: Yes Hopelessness: No Smoker: Yes Protective Factors Assessment : Yes Responsible for Young Children: No Employed: No (Fired from [employer] on 09/12/2019) Stable Relationships: Yes Supportive Family: Yes Good Rapport with Provider: No Interval History Identifying Information LAMONT MEDINA is a 54-year-old F who currently lives in [place] with her , has a history of alcohol dependence, and was admitted on 10/13/19 12:08 on a 201 voluntary commitment for alcohol intoxication and suicidality. Chief Complaint "Oh yeah, we had that phone conference call today. That was pretty stressful." Review of Systems Notes Constitutional: denied Cardiovascular: denied Respiratory: denied Gastrointestinal: denied Neurological: denied Musculoskeletal: reports mid-lower back pain Psychiatric: denies symptoms other than stated above Total of at least 10 systems reviewed, pertinent positives as above and in HPI. Sleep Information Total Hours of Sleep: 7 Meal Information Percent Meal Consumed - Breakfast: 50 Percent Meal Consumed - Lunch: 50 Percent Meal Consumed - Dinner: 60 Nutrition Comment: per meal log Subjective Subjective Patient was seen & assessed and interval progress reviewed with nursing and social work. Staff report the patient is scheduled for a family meeting with her daughter today, it remains unclear if will be joining as well. During admission assessments, patient did admit to abusing alcohol along with abusing her 's pain medications. By patient's reports, the timing of her depressive symptoms is correlated closely with when she began using alcohol more regularly. Pt was seen today to assess progress since admission. Pt states she the phone meeting with her daughter was stressful, as they had "different priorities." She states her daughter was focused on the patient agreeing to appropriate aftercare, while the patient was more focused on the paperwork she needs to complete for unemployment. Pt states "she had a lot of demands, but she needs to understand it's not gonna happen all at once. There is going to have to be some give and take." Pt does state that someone is planning to bring her unemployment paperwork tonight, and she is hopeful to fill it out with staff assistance. Pt states that while she has been feeling well physically, she does reports noticing that she has experienced anxiety for several weeks now. Pt states, "ever since my 's open heart surgery, I've been a lot more anxious." Pt shares with this provider that she has been taking on more responsibility within the home after her 's surgery, even at the time she was working full-time." Pt felt anxious, overwhelmed, and admits to feeling as though the division of labor at home was unfair. We discussed that family meetings can be helpful for this purpose, to be able to explain to supports where our anxiety is coming from and to be able to ask for appropriate assistance. Pt states that she is benefiting from group programming. She is willing for a therapy referral. She denies SI today, and is far less focused on requesting discharge. Physical Exam Psychiatric Orientation: alert, oriented x 3 and cooperative Apperance: appropriately dressed, appropriately groomed and appeared stated age Eye Contact: good eye contact Motor Behavior: steady gait and station and no abnormal motor movements Speech: normal rate/rhythm/volume of speech Affect: + blunted affect (appearing subdued, though not overtly depressed) Mood: + anxious mood ("that meeting was stressful, I had to ask for something for anxiety"); no depressed mood Thought Process: goal directed thought process, clear/coherent thought process and thought association intact Thought Content: + cognitive distortions (most consistent with history of addiction and substance abuse); no hopelessness Suicidal Thoughts: denies suicidal thoughts Homicidal Thoughts: denies homicidal thoughts Hallucinations: no auditory hallucinations and no visual hallucinations Cognition: attention grossly intact and language grossly intact Insight: + poor insight Judgement: + poor judgement Vital Signs (Past 24 Hours) Last Vital Signs Temp 36.9 C 10/15/19 12:51 Pulse 96 H 10/15/19 12:51 Resp 18 10/15/19 12:51 BP 183/91 H 10/15/19 12:51 Pulse Ox 96 10/13/19 11:56 Results & Data ([facility]) Current Inpatient Medications Current Inpatient Medications: Current Inpatient Medications Acetaminophen (Tylenol) 650 mg PO Q4H PRN PRN Reason: Headache or Minor Fever Stop: 11/12/19 11:06 Last Admin: 10/14/19 20:35 Dose: 650 mg Documented by: Al Hydrox/Mg Hydrox/Simethicone (Maalox) 30 ml PO Q4H PRN PRN Reason: GI Upset Stop: 11/12/19 11:06 Bismuth Subsalicylate (Kaopectate) 15 ml PO PRN PRN PRN Reason: Loose Stool Stop: 11/12/19 11:06 Gabapentin (Neurontin) 600 mg PO Q12H MATTHEW Stop: 10/15/19 18:01 Last Admin: 10/15/19 06:16 Dose: 600 mg Documented by: Gabapentin (Neurontin) 600 mg PO Q24H MATTHEW Stop: 10/16/19 18:01 Hydroxyzine HCl (Vistaril) 50 mg PO HSZ PRN PRN Reason: Insomnia Stop: 11/12/19 11:06 Last Admin: 10/14/19 20:40 Dose: 50 mg Documented by: Hydroxyzine HCl (Vistaril) 25 mg PO Q4H PRN PRN Reason: Anxiety Stop: 11/12/19 11:06 Last Admin: 10/15/19 10:28 Dose: 25 mg Documented by: Ioversol (Optiray 320 100ml) 94 ml IV ONCE PRN PRN Reason: Interaction Checking Stop: 10/16/19 19:56 Last Admin: 10/12/19 19:57 Dose: 94 ml Documented by: Lorazepam (Ativan) 1 - 3 mg PO UD PRN; Protocol PRN Reason: EtoH Withdrawal AWSS 6-10+ Stop: 11/12/19 11:08 Last Admin: 10/15/19 12:59 Dose: 1 mg Documented by: Magnesium Hydroxide (Milk Of Magnesia) 30 ml PO DAILY PRN PRN Reason: Constipation Stop: 11/12/19 11:06 Miscellaneous (Remove Nicoderm Patch) 1 ea N/A DAILY@0859 [facility] Stop: 11/14/19 08:58 Last Admin: 10/15/19 08:09 Dose: Not Given Documented by: Nicotine (Nicoderm Cq) 21 mg TD QAM [facility] Stop: 11/13/19 11:59 Last Admin: 10/15/19 08:08 Dose: 21 mg Documented by: Nicotine Polacrilex (Nicorette 2mg) 1 piece MT PRN PRN PRN Reason: nicotine cravings Stop: 11/12/19 14:49 Last Admin: 10/14/19 11:49 Dose: 1 piece Documented by: Sodium Chloride ([place] Nasal) 1 - 2 sprays NA PRN PRN PRN Reason: Nasal Dryness/Congestion Stop: 11/12/19 11:06 Mental Health & Subst Abuse Tx Therapist Name of Therapist: None Hand Almond Blancher Name of Hand Almond Blancher: None
[2019-10-16] MEDS: ACETAMINOPHEN 325 MG TAB PO PRN ×2 (01:13→11:06)
[2019-10-16] MEDS: NICOTINE 21 MG/24 HR TDSY TD SCH (08:27)
--- NOTE | 2019-10-16 11:01 | Psychiatric Progress Note ---
Date of Service October 16, 2019 Impression / Recommendations Impression 54-year-old female from [place] who has a history of alcohol dependence and depression NOS and presents with suicidal ideation in the context of extremely heavy alcohol intake and withdrawal. She endorses multiple stressors, including recent job loss and financial strain. She is also been using her 's prescription opioid medications, and has not been forthcoming regarding the extent of her substance use. She signed in voluntarily, but has a backup 302 petition. She is being treated for alcohol withdrawal, and has gradually been more agreeable with the remainder of her treatment plan. She did have a phone meeting with her daughter today, and is agreeable with referral for substance abuse counseling. She remains at risk for suicide if discharged prematurely as little about her situation has changed, though presently she is denying SI. (1) Suicidal ideation: 3/4 -continue voluntary inpatient treatment, with every 15 minute checks for safety. -Encourage participation in unit groups and therapy, work on healthy coping skills and discharge safety plan. -Recommend family meeting with and daughter, including review of safety concerns at home, specifically access to alcohol, controlled substances (taking 's opiates), weapons and other medications. She denies access to guns. 10/14 - Denies SI today (2) Alcohol dependence: 3/4 -Long history of alcohol dependence, multiple episodes of withdrawal, hospitalizations, and inpatient rehabs. Patient does not forthcoming regarding alcohol use, stating she has been sober for 5 years, when she was in fact seen in our ER 14 months ago, was intoxicated and reported drinking daily, and was in alcohol withdrawal, which indicates consistent and significant alcohol intake. -Reviewed risks of continued alcohol abuse, including worsening medical problems, liver disease, withdrawal, worsening mood and anxiety, SI and self- harm. She indicates understanding, but poor insight and judgment, and is refusing treatment recommendations including IOP and inpatient rehab. -Continue gabapentin taper and AWSS protocol for withdrawal. Recovery protocol. -Avoid prescription of controlled substances due to the high risk of abuse/misuse/negative outcomes. -Brief intervention was offered and accepted. Intervention was greater than 5 min in length. Brief interventions include: 1. Assess Readiness to Quit, 2. Advise: Help Patient to Reduce or Abstain from Alcohol, 3. Agree: Set Specific, Feasible Goals, 4. Assist: Anticipate barriers, Problem-Solving Solutions. Social work to 5. Arrange: Referrals to appropriate treatment. Summary of intervention: The patient is in precontemplation stage with regards to transtheoretical model of change. The patient is advised to decrease alcohol consumption due to depressant effects and risk of interactions with prescription medications. The patient agreed to consider treatment recommendations, and will be provided with recovery materials to continue to education self on how to cope with their condition without drinking. 10/14 - Pt continues to demonstrate poor insight as to how her alcohol use has impacted her mood and her relationships with others - Family meeting held today with daughter via phone - pt admitting it was stressful as they have "different priorities" - Pt is willing for a therapist, and we will explore substance abuse counseling (3) Substance or medication-induced depressive disorder: 10/13 -On review of records and on interview today, patient reports depressive symptoms that occur in the setting of heavy, daily alcohol use. She may be minimizing her mood symptoms today, as she is focused on discharge. Based on available information, the most appropriate diagnosis is substance induced depression, and discussed this with the patient including diagnosis and treatment, namely abstinence from alcohol opiates and substance abuse treatment. -Patient had UDS in 08/2019 that was +opiates and reports taking her 's narcotics. Advised against this, and reviewed risk of HOT FRAME TENDER depression when combined w/ alcohol. 10/14 - While patient continues to deny significant mood symptoms prior to ~1 month ago, she does admit to history of anxiety since her 's open heart surgery - We discussed that medications are not clearly indicated at this time, but use of prn hydroxyzine was encouraged for anxiety as needed (4) Abnormal urinalysis: UA appears contaminated, with > 30 WBCs -will not treat with antibiotics as patient asymptomatic and appears it was a contaminated sample, culture pending. 10/14 - Urine culture results reviewed. Multiple organisms consistent with skin ester - likely contamination. Will continue with plan above, as patient remains asymptomatic Risk Factors Assessment Male: No : Yes Do You Have Access To A Gun?: No Health Problems: Yes (alcohol withdrawal) Mental Health Diagnoses: Yes Substance Use Disorders: Yes Previous Attempt: No Previous Psychiatric Hospitalization: Yes Hopelessness: No Smoker: Yes Protective Factors Assessment : Yes Responsible for Young Children: No Employed: No (Fired from [employer] on 09/12/2019) Stable Relationships: Yes Supportive Family: Yes Good Rapport with Provider: No Interval History Identifying Information LAMONT MEDINA is a 54-year-old F who currently lives in [place] with her , has a history of alcohol dependence, and was admitted on 10/13/19 12:08 on a 201 voluntary commitment for alcohol intoxication and suicidality. Chief Complaint "I was detoxing from alcohol". Review of Systems Sleep Information Total Hours of Sleep: 8.5 Meal Information Percent Meal Consumed - Breakfast: 50 Percent Meal Consumed - Lunch: 100 Percent Meal Consumed - Dinner: 50 Nutrition Comment: pt. ate a late lunch as she was not feeling well earlier Physical Exam Vital Signs (Past 24 Hours) Last Vital Signs Temp 36.8 C 10/16/19 08:42 Pulse 96 H 10/16/19 08:42 Resp 16 10/16/19 08:42 BP 131/84 10/16/19 08:42 Pulse Ox 96 10/15/19 20:32 Results & Data ([facility]) Current Inpatient Medications Current Inpatient Medications: Current Inpatient Medications Acetaminophen (Tylenol) 650 mg PO Q4H PRN PRN Reason: Headache or Minor Fever Stop: 11/12/19 11:06 Last Admin: 10/16/19 01:13 Dose: 650 mg Documented by: Al Hydrox/Mg Hydrox/Simethicone (Maalox) 30 ml PO Q4H PRN PRN Reason: GI Upset Stop: 11/12/19 11:06 Bismuth Subsalicylate (Kaopectate) 15 ml PO PRN PRN PRN Reason: Loose Stool Stop: 11/12/19 11:06 Gabapentin (Neurontin) 600 mg PO Q24H MATTHEW Stop: 10/16/19 18:01 Hydroxyzine HCl (Vistaril) 50 mg PO HSZ PRN PRN Reason: Insomnia Stop: 11/12/19 11:06 Last Admin: 10/15/19 20:35 Dose: 50 mg Documented by: Hydroxyzine HCl (Vistaril) 25 mg PO Q4H PRN PRN Reason: Anxiety Stop: 11/12/19 11:06 Last Admin: 10/16/19 08:41 Dose: 25 mg Documented by: Ioversol (Optiray 320 100ml) 94 ml IV ONCE PRN PRN Reason: Interaction Checking Stop: 10/16/19 19:56 Last Admin: 10/12/19 19:57 Dose: 94 ml Documented by: Lorazepam (Ativan) 1 - 3 mg PO UD PRN; Protocol PRN Reason: EtoH Withdrawal AWSS 6-10+ Stop: 11/12/19 11:08 Last Admin: 10/15/19 12:59 Dose: 1 mg Documented by: Magnesium Hydroxide (Milk Of Magnesia) 30 ml PO DAILY PRN PRN Reason: Constipation Stop: 11/12/19 11:06 Miscellaneous (Remove Nicoderm Patch) 1 ea N/A DAILY@0859 [facility] Stop: 11/14/19 08:58 Last Admin: 10/16/19 08:28 Dose: Not Given Documented by: Nicotine (Nicoderm Cq) 21 mg TD QAM [facility] Stop: 11/13/19 11:59 Last Admin: 10/16/19 08:27 Dose: 21 mg Documented by: Nicotine Polacrilex (Nicorette 2mg) 1 piece MT PRN PRN PRN Reason: nicotine cravings Stop: 11/12/19 14:49 Last Admin: 10/14/19 11:49 Dose: 1 piece Documented by: Sodium Chloride ([place] Nasal) 1 - 2 sprays NA PRN PRN PRN Reason: Nasal Dryness/Congestion Stop: 11/12/19 11:06 Mental Health & Subst Abuse Tx Psychiatrist Name of Psychiatrist: none Therapist Name of Therapist: Leslie Moses Therapist's Date of Therapist Appointment: 10/19/19 Time of Therapist Appointment: 3:30pm Therapy Appointment Comment: [address], [place] [address] Wildlife Biostation Research Ecologist Name of Wildlife Biostation Research Ecologist: Sharon Lozano [facility] Phone Number for Wildlife Biostation Research Ecologist: [phone] Date of Appointment with Wildlife Biostation Research Ecologist: 10/19/19 Time of Appointment with Wildlife Biostation Research Ecologist: 1:30pm Case Management Appointment Comment: [address], [address], [place] [address] Post Discharge Appointments Primary Care Physician Name Of Family Doctor: None, recommend that you secure new PCP when insurance is active Provider Appointment Comment: If not approved for [place],can call [facility] in [phone] Contact Information Discharge Discharge Address: [address] [place] [id number]
--- NOTE | 2019-10-16 11:08 | Discharge Summary ---
Date of Service October 16, 2019 History of Present Illness Patient presented to the ER 10/12/2019 via EMS for alcohol withdrawal. She reported drinking daily for "a while," and went to [facility] because "I just couldn't take the pain anymore," and was then sent to our ER for medical evaluation as she was intoxicated. Her blood alcohol level was 236, folate 4.42, potassium 3.3, anion gap 15, and UA notable for 1+ protein, trace ketones, 1+ leukocyte esterase, 2+ bacteria, and > 30 epithelial and white blood cells. Urine culture is pending. She also had a chest x-ray due to cough, which was negative for cardiopulmonary findings, and a CT of her C-spine which showed no acute cervical spine fracture or subluxation. She had a CT of the abdomen and pelvis due to her abdominal findings on exam, which showed a healing anterior right lower rib fracture, several old left rib fractures, mild T12 compression fracture, equivocal nondisplaced S4 fracture, and fatty infiltration of the liver. She had a CT of the head which was negative for acute intracranial findings. EKG was normal sinus rhythm with a rate of 98 and QTC of 454. She received IV fluids, Phenergan, vitamin B 1, and Lorazepam in the ER, and received a dose of IV Rocephin due to concern for UTI. She was observed until she was clinically sober, and was then evaluated by the ER psych medical case worker. She reported a 20-year history of alcohol abuse, and said she had been sober for 5 years but relapsed a month ago after being fired from her job at [employer] on 09/12. Of note, she was seen in our ER in 07/2018, was intoxicated with a BAL of 97.2, and reported she had been drinking daily but trying to cut back, and was having withdrawal symptoms. Inpatient rehab was recommended, but she refused, and was discharged home. She reported stress due to 's multiple medical problems, and was trying to get unemployment. She reported drinking 2 gallons of vodka in the past 2 weeks, and admitted to threatening to stab or shoot herself, stating "I just wanted the pain to go away." She reported back pain for the past week, thought she had fallen while intoxicated, difficulty falling asleep, but getting approximately 9 hours a night. She reported decreased appetite and anxiety. Due to alcohol withdrawal, she was monitored in the ER, started on gabapentin and AWSS protocol, and she then agreed to sign in voluntarily. Her daughter completed a 302 petition stating "Nidia has relapsed after 5 years of being sober. She has been drunk for the last 2 weeks. She has threatened to kill herself multiple times today. She has been threatening to stab or shoot herself. She is unable to take care of herself in this mental state." She denied having a PCP or being prescribed medication, but per records, saw Dr. Susan De Luna for primary care visit on 09/07/2019, reported depression and anxiety, was started on escitalopram 10 mg and referred for therapy. She had a drug screen that was positive for oxycodone and nor oxycodone. Last evening on the unit, her daughter visited, and she reported good support from her whom she lives with. She met with the social media marketing specialist, but refused a family meeting, and refused to sign releases so that she could be referred for outpatient treatment. On my assessment, she says she started drinking again 09/12/2019 after being fired from her job at [employer]. She says "it was really bad," and she was increasing her daily intake. She says she doesn't know why her daughter took her to [facility], " I was just detoxing," but admits she doesn't remember much of the events of the past two weeks due to intoxication. She reports being sober for 5 years, but reviewed ER records of intoxication/daily drinking in 07/2018, and she reports "well, yeah, I've been sober since then." She reports worsening for the past month due to financial strain, as she has not tried to get another job, and is trying to get unemployment and medical assistance. She denies SI today, but admits she "couldn't handle the detox" and was overwhelmed and unable to function at home. She denies depressive symptoms prior to losing her job. She reports "high" anxiety since she lost her job, due to worrying about finances, but denies panic attacks and denies anxiety prior to job loss. Denies any history of manic or psychotic symptoms, PTSD, OCD, and eating disorder. She initially denied using opiates, but when asked about her UDS at PCP's office, says she takes her 's pain pills "just sometimes." Her goals of treatment are to "get insurance, get a job, finish up some things on the computer." She initially denies having a PCP, but when reviewed with her that I can see her PCP visit note from approximately 1 month ago, when she reported depressive symptoms and was started on escitalopram, she admits that this occurred, but says she only took the medication for 1 week because "it wasn't working." Spoke to Dr. De Luna who reports patient is being discharged from clinic. Reviewed patient's treatment there and h/o substance abuse/not being forthcoming regarding controlled substances/asking for inappropriate medications. Physical Exam Psychiatric Orientation: alert, oriented x 3 and cooperative Apperance: appropriately dressed and appropriately groomed Eye Contact: + fair eye contact Motor Behavior: steady gait and station Speech: normal rate/rhythm/volume of speech Affect: euthymic affect "I am in a pretty good mood." Thought Process: goal directed thought process Thought Content: reality based without delusions Suicidal Thoughts: denies suicidal thoughts Homicidal Thoughts: denies homicidal thoughts Hallucinations: no auditory hallucinations, no visual hallucinations and no tactile hallucinations Patient reports that, prior to admission, while withdrawing from alcohol she experienced visual hallucinations such as seeing "dogs floating in the air." These reportedly are no longer present. Cognition: recent memory grossly intact and remote memory grossly intact Patient acknowledges that because of her alcohol misuse there several recent occurrences that she cannot remember or can only remember vaguely. Estimated Intelligence: average estimated intelligence Insight: + fair insight Judgement: + fair judgement Vital Signs (Past 24 Hours) Last Vital Signs Temp 36.8 C 10/16/19 08:42 Pulse 96 H 10/16/19 08:42 Resp 16 10/16/19 08:42 BP 131/84 10/16/19 08:42 Pulse Ox 96 10/15/19 20:32 Principal Diagnosis Depression Psychiatric Data During the course of hospitalization the patient was offered various modalities of psychiatric treatment and education. These included individual, group, and activity therapies. Also, the patient was monitored for signs of symptoms of alcohol withdrawal given her history of alcohol dependence. She scored positive on the Alcohol Withdrawal Severity Scale (AWSS) during the first 2 days of the hospital stay with symptoms that included elevated pulse, tremor, and anxiety. She notes that, prior to admission, she was experiencing more severe withdrawal including marketed tremors and visual hallucinations. By the day of discharge, the patient was not demonstrating any further symptoms of alcohol withdrawal, the patient, herself, noted that she is familiar with symptoms of alcohol withdrawal and agrees that she is not experiencing any at present. The patient also reports that her mood has improved considerably now that she is completed alcohol detoxification. On the day of discharge, the patient acknowledges that she cannot remember exactly what she was saying while going through alcohol withdrawal and while intoxicated (as she was in the emergency room), but what she does recall is that she was distressed because of her withdrawal symptoms and had said things such as "I cannot take this anymore" and "I be better off ." The patient adds that she does not recall having any active suicidal intent, and when some of her alleged statements were fed back to her today she said, "if I said that, I did not mean it." Although initially the patient minimized her alcohol use, by discharge and after participation in chemical dependency education here in the hospital the patient clearly acknowledged that she considers her self to be an alcoholic, recognize that many of her problems were related to alcohol misuse, and she also recognized that she had been externalizing responsibility for her problems to other people, particularly her . She was able to talk about how she has felt somewhat frustrated by her 's persistent inactivity, but she acknowledges that he is continuing to show symptoms of cardiac insufficiency, including shortness of breath with minimal exertion. The patient adds that she believes that if he had been more diligent in cardiac rehab and had tried harder to be more physically active his condition might of improved, but she also explained that she realizes that he remains ill and does need help and support. (The patient's is 11 years her senior, had a myocardial infarction and, approximately a year ago, underwent a quadruple coronary artery bypass graft). The patient was also able to talk about to the struggle she has had achieving and maintaining sobriety. She notes that, in the past, she was able to remain sober for approximately 5 years, but seems realistic in saying that recent efforts have been short-lived and not successful. The patient notes that she has recently been in touch with a chemical staff training and development manager, and says that her plans following discharge include participating actively in chemical dependency treatment. The patient is able to identify her relapse triggers which are, primarily, frustration, disappointment, and feelings of rejection. She reports that there is no alcohol in the home, and while she is aware that she could take a cab to the liquor s tore, she notes that this requires for thoughts and her plan will be to work with her medical case worker and outpatient provider, and possibly obtain a self-help sponsor that she will contact in the event that she is tempted to acquire alcohol, or if she is aware of the presence of 1 of her above identified triggers. Day of Discharge Assessment On the day of discharge, the patient was fully cooperative with the discharge assessment. She was appropriately dressed and groomed. Her speech was spontaneous and delivered to normal rate and rhythm. She appeared calm and there was no evidence of any tremors. Her mood was described as "good," and her affect was fairly bright. Patient's thought processes demonstrated tight associations. There is no evidence of any psychotic features such as delusional material or perceptual disturbances in her thought content/behaviors. Patient strongly and convincingly denied the presence of any suicidal thoughts, and she also reported that she was not having any thoughts of causing physical harm to the person or property of others. She exhibited at least fair insight by saying that she recognizes that her biggest challenge will be to remain sober following discharge. The patient notes that she feels committed to sobriety at this point, but knows that her recent history has been marked by frequent sustained relapses. The patient also acknowledges that there are a number of ongoing psychosocial stressors, including her 's persistent cardiac symptoms and a tendency to be an active at home. She is aware of her relapse triggers, and has committed to continued chemical dependency on an outpatient basis. The patient's judgment is at least fair, and, as above, she is aware that she is at risk for relapse given her history and is committing to working with a medical case worker and a therapist and chemical dependency treatment. The patient is future oriented, and talks happily about her daughter's upcoming wedding. 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 She has, "I like that kind of work, and I think I am good at it." She reports that she is not having any thoughts of suicide, and also reports that she has never had any thoughts of causing physical harm to the person or property of others. Transition of Care Transition Of Care Record: was reviewed with the patient Advance Directives Advance Directives Information Provided: Yes Advance Directives: No Mental Health Advance Directive: No Advance Directives on File: No Living Will: No Power of End Touching Machine Operator: No Advance Directives Reason:: Declines as Mental Health Visit. Risk Factors Assessment Male: No : Yes Do You Have Access To A Gun?: No Health Problems: Yes (alcohol withdrawal) Mental Health Diagnoses: Yes Substance Use Disorders: Yes Previous Attempt: No Previous Psychiatric Hospitalization: Yes Hopelessness: No Smoker: Yes Protective Factors Assessment : Yes Responsible for Young Children: No Employed: No (Fired from [employer] on 09/12/2019) Stable Relationships: Yes Supportive Family: Yes Good Rapport with Provider: No Absence of Any Risk Factors Above: No Tobacco Cessation at Discharge Tobacco Cessation Medication Prescribed at Discharge: Offered & Prescribed Total Time Total Time Spent: Greater Than 30 Minutes Total Time Includes: Examination of the patient, Discharge Planning, Medication Reconciliation and Communication with other providers Discharge Data Lab Results 10/12/19 10/12/19 10/12/19 18:55 18:55 18:59 WBC 5.39 RBC 5.10 Hgb 17.0 H Hct 47.2 H MCV 92.5 MCH 33.3 MCHC 36.0 RDW Std Deviation 48.8 H RDW Coeff of Wilder 14.4 Plt Count 147 MPV 10.6 H Immature Gran % (Auto) 0.2 Neut % (Auto) 46.2 Lymph % (Auto) 43.6 [place] % (Auto) 9.1 Eos % (Auto) 0.2 Baso % (Auto) 0.7 Immature Gran # (Auto) 0.01 Neut # (Auto) 2.49 Lymph # (Auto) 2.35 [place] # (Auto) 0.49 Eos # (Auto) 0.01 Baso # (Auto) 0.04 PT INR APTT PTT Ratio Carboxyhemoglobin Sodium Potassium Chloride Carbon Dioxide Anion Gap BUN Creatinine Est Cr Clr Drug Dosing Est GFR ( Amer) Est GFR (Non-Af Amer) BUN/Creatinine Ratio Glucose Osmolality Calcium Magnesium Total Bilirubin AST ALT Alkaline Phosphatase Total Creatine Kinase Troponin I Total Protein Albumin Globulin Albumin/Globulin Ratio Lipase Folate HCG, Qual Urine Color Dark Yellow Urine Appearance Cloudy A Urine pH 5.5 Ur Specific [place] 1.018 Urine Protein 1+ H Urine Glucose (UA) Negative Urine Ketones Trace H Urine Blood Negative Urine Nitrite Negative Urine Bilirubin Negative Urine Urobilinogen Negative Ur Leukocyte Esterase 1+ H Urine WBC (Auto) >30 H Urine RBC (Auto) 0-4 U Hyaline Cast (Auto) 1-5 U Epithel Cells (Auto) >30 H Urine Bacteria (Auto) 2+ H Urine Mucus Present A Salicylates Urine Opiates Screen Neg Ur Methadone, Qual Neg Acetaminophen Urine Barbiturates Neg Ur Phencyclidine (PCP) Neg U Amphetamin/Meth Scrn Neg MDMA (Ecstasy) Screen Neg U Benzodiazepines Scrn Neg Ur Cocaine Metabolite Neg U Marijuana (THC) Screen Neg Ethyl Alcohol mg/dL 10/12/19 10/12/19 10/12/19 18:59 18:59 18:59 WBC RBC Hgb Hct MCV MCH MCHC RDW Std Deviation RDW Coeff of Wilder Plt Count MPV Immature Gran % (Auto) Neut % (Auto) Lymph % (Auto) [place] % (Auto) Eos % (Auto) Baso % (Auto) Immature Gran # (Auto) Neut # (Auto) Lymph # (Auto) [place] # (Auto) Eos # (Auto) Baso # (Auto) PT Cancelled INR Cancelled APTT Cancelled PTT Ratio Cancelled Carboxyhemoglobin Sodium 136 Potassium 3.3 L Chloride 98 Carbon Dioxide 23 Anion Gap 15.0 H BUN 13 Creatinine 0.71 Est Cr Clr Drug Dosing 80.6 Est GFR ( Amer) 111.9 Est GFR (Non-Af Amer) 96.6 BUN/Creatinine Ratio 17.6 Glucose 89 Osmolality Calcium 8.7 Magnesium 1.5 L Total Bilirubin 0.6 AST 44 H ALT 33 Alkaline Phosphatase 115 Total Creatine Kinase 77 Troponin I < 0.015 Total Protein 8.0 Albumin 4.0 Globulin 4.0 Albumin/Globulin Ratio 1.0 Lipase 77 Folate HCG, Qual Urine Color Urine Appearance Urine pH Ur Specific [place] Urine Protein Urine Glucose (UA) Urine Ketones Urine Blood Urine Nitrite Urine Bilirubin Urine Urobilinogen Ur Leukocyte Esterase Urine WBC (Auto) Urine RBC (Auto) U Hyaline Cast (Auto) U Epithel Cells (Auto) Urine Bacteria (Auto) Urine Mucus Salicylates Cancelled Urine Opiates Screen Ur Methadone, Qual Acetaminophen Cancelled Urine Barbiturates Ur Phencyclidine (PCP) U Amphetamin/Meth Scrn MDMA (Ecstasy) Screen U Benzodiazepines Scrn Ur Cocaine Metabolite U Marijuana (THC) Screen Ethyl Alcohol mg/dL 10/12/19 10/12/19 10/12/19 18:59 18:59 18:59 WBC RBC Hgb Hct MCV MCH MCHC RDW Std Deviation RDW Coeff of Wilder Plt Count MPV Immature Gran % (Auto) Neut % (Auto) Lymph % (Auto) [place] % (Auto) Eos % (Auto) Baso % (Auto) Immature Gran # (Auto) Neut # (Auto) Lymph # (Auto) [place] # (Auto) Eos # (Auto) Baso # (Auto) PT INR APTT PTT Ratio Carboxyhemoglobin 7.2 Sodium Potassium Chloride Carbon Dioxide Anion Gap BUN Creatinine Est Cr Clr Drug Dosing Est GFR ( Amer) Est GFR (Non-Af Amer) BUN/Creatinine Ratio Glucose Osmolality Calcium Magnesium Total Bilirubin AST ALT Alkaline Phosphatase Total Creatine Kinase Troponin I Total Protein Albumin Globulin Albumin/Globulin Ratio Lipase Folate HCG, Qual Cancelled Urine Color Urine Appearance Urine pH Ur Specific [place] Urine Protein Urine Glucose (UA) Urine Ketones Urine Blood Urine Nitrite Urine Bilirubin Urine Urobilinogen Ur Leukocyte Esterase Urine WBC (Auto) Urine RBC (Auto) U Hyaline Cast (Auto) U Epithel Cells (Auto) Urine Bacteria (Auto) Urine Mucus Salicylates Urine Opiates Screen Ur Methadone, Qual Acetaminophen Urine Barbiturates Ur Phencyclidine (PCP) U Amphetamin/Meth Scrn MDMA (Ecstasy) Screen U Benzodiazepines Scrn Ur Cocaine Metabolite U Marijuana (THC) Screen Ethyl Alcohol mg/dL 236.0 H 10/12/19 10/12/19 10/12/19 18:59 20:50 20:50 WBC RBC Hgb Hct MCV MCH MCHC RDW Std Deviation RDW Coeff of Wilder Plt Count MPV Immature Gran % (Auto) Neut % (Auto) Lymph % (Auto) [place] % (Auto) Eos % (Auto) Baso % (Auto) Immature Gran # (Auto) Neut # (Auto) Lymph # (Auto) [place] # (Auto) Eos # (Auto) Baso # (Auto) PT 10.0 INR 1.0 APTT 27.3 PTT Ratio 1.0 Carboxyhemoglobin Sodium Potassium Chloride Carbon Dioxide Anion Gap BUN Creatinine Est Cr Clr Drug Dosing Est GFR ( Amer) Est GFR (Non-Af Amer) BUN/Creatinine Ratio Glucose Osmolality Cancelled 330 H Calcium Magnesium Total Bilirubin AST ALT Alkaline Phosphatase Total Creatine Kinase Troponin I Total Protein Albumin Globulin Albumin/Globulin Ratio Lipase Folate HCG, Qual Urine Color Urine Appearance Urine pH Ur Specific [place] Urine Protein Urine Glucose (UA) Urine Ketones Urine Blood Urine Nitrite Urine Bilirubin Urine Urobilinogen Ur Leukocyte Esterase Urine WBC (Auto) Urine RBC (Auto) U Hyaline Cast (Auto) U Epithel Cells (Auto) Urine Bacteria (Auto) Urine Mucus Salicylates Urine Opiates Screen Ur Methadone, Qual Acetaminophen Urine Barbiturates Ur Phencyclidine (PCP) U Amphetamin/Meth Scrn MDMA (Ecstasy) Screen U Benzodiazepines Scrn Ur Cocaine Metabolite U Marijuana (THC) Screen Ethyl Alcohol mg/dL 10/12/19 10/12/19 10/13/19 20:51 21:24 05:24 WBC RBC Hgb Hct MCV MCH MCHC RDW Std Deviation RDW Coeff of Wilder Plt Count MPV Immature Gran % (Auto) Neut % (Auto) Lymph % (Auto) [place] % (Auto) Eos % (Auto) Baso % (Auto) Immature Gran # (Auto) Neut # (Auto) Lymph # (Auto) [place] # (Auto) Eos # (Auto) Baso # (Auto) PT INR APTT PTT Ratio Carboxyhemoglobin Sodium Potassium Chloride Carbon Dioxide Anion Gap BUN Creatinine Est Cr Clr Drug Dosing Est GFR ( Amer) Est GFR (Non-Af Amer) BUN/Creatinine Ratio Glucose Osmolality Calcium Magnesium Total Bilirubin AST ALT Alkaline Phosphatase Total Creatine Kinase Troponin I Total Protein Albumin Globulin Albumin/Globulin Ratio Lipase Folate 4.42 L HCG, Qual Negative Urine Color Urine Appearance Urine pH Ur Specific [place] Urine Protein Urine Glucose (UA) Urine Ketones Urine Blood Urine Nitrite Urine Bilirubin Urine Urobilinogen Ur Leukocyte Esterase Urine WBC (Auto) Urine RBC (Auto) U Hyaline Cast (Auto) U Epithel Cells (Auto) Urine Bacteria (Auto) Urine Mucus Salicylates 6.5 Urine Opiates Screen Ur Methadone, Qual Acetaminophen 2 L Urine Barbiturates Ur Phencyclidine (PCP) U Amphetamin/Meth Scrn MDMA (Ecstasy) Screen U Benzodiazepines Scrn Ur Cocaine Metabolite U Marijuana (THC) Screen Ethyl Alcohol mg/dL Hospital Course (1) Suicidal ideation: 3/4 -continue voluntary inpatient treatment, with every 15 minute checks for safety. -Encourage participation in unit groups and therapy, work on healthy coping skills and discharge safety plan. -Recommend family meeting with and daughter, including review of safety concerns at home, specifically access to alcohol, controlled substances (taking 's opiates), weapons and other medications. She denies access to guns. 10/14 - Denies SI today (2) Alcohol dependence: 3/4 -Long history of alcohol dependence, multiple episodes of withdrawal, hospitalizations, and inpatient rehabs. Patient does not forthcoming regarding alcohol use, stating she has been sober for 5 years, when she was in fact seen in our ER 14 months ago, was intoxicated and reported drinking daily, and was in alcohol withdrawal, which indicates consistent and significant alcohol intake. -Reviewed risks of continued alcohol abuse, including worsening medical problems, liver disease, withdrawal, worsening mood and anxiety, SI and self- harm. She indicates understanding, but poor insight and judgment, and is refusing treatment recommendations including IOP and inpatient rehab. -Continue gabapentin taper and AWSS protocol for withdrawal. Recovery protocol. -Avoid prescription of controlled substances due to the high risk of abuse/misuse/negative outcomes. -Brief intervention was offered and accepted. Intervention was greater than 5 min in length. Brief interventions include: 1. Assess Readiness to Quit, 2. Advise: Help Patient to Reduce or Abstain from Alcohol, 3. Agree: Set Specific, Feasible Goals, 4. Assist: Anticipate barriers, Problem-Solving Solutions. Social work to 5. Arrange: Referrals to appropriate treatment. Summary of intervention: The patient is in precontemplation stage with regards to transtheoretical model of change. The patient is advised to decrease alcohol consumption due to depressant effects and risk of interactions with prescription medications. The patient agreed to consider treatment recommendations, and will be provided with recovery materials to continue to education self on how to cope with their condition without drinking. 10/14 - Pt continues to demonstrate poor insight as to how her alcohol use has impacted her mood and her relationships with others - Family meeting held today with daughter via phone - pt admitting it was stressful as they have "different priorities" - Pt is willing for a therapist, and we will explore substance abuse counseling 10/15 -Today, the patient is more clearly able to connect her alcohol abuse with the various negative consequences that she has suffered both recently and over the past years. She also recognizes that to some extent she has been externalizing responsibility for these problems. -The patient has not clearly identifying herself as an alcoholic. She has taken the initiative to speak telephonically with a chemical staff training and development manager and has been working on the task of more clearly identifying her relapse triggers and strategies for remaining sober in the community. -Aftercare arrangements for chemical dependency treatment following discharge have been finalized. 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 She may be minimizing her mood symptoms today, as she is focused on discharge. Based on available information, the most appropriate diagnosis is substance induced depression, and discussed this with the patient including diagnosis and treatment, namely abstinence from alcohol opiates and substance abuse treatment. -Patient had UDS in 08/2019 that was +opiates and reports taking her 's narcotics. 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 35 - While patient continues to deny significant mood symptoms prior to ~1 month ago, she does admit to history of anxiety since her 's open heart surgery - We discussed that medications are not clearly indicated at this time, but use of prn hydroxyzine was encouraged for anxiety as needed 3/6 -The patient recognizes that the most important thing she can do to avoid alcohol-induced depression is to maintain abstinence. -We do not believe that the patient would at this point benefit from an antidepressant medication, and she is currently describing her mood as "good." -She will be going to [place] as an outpatient where she will receive both psychiatric and chemical dependency treatment. (4) Abnormal urinalysis: UA appears contaminated, with > 30 WBCs -will not treat with antibiotics as patient asymptomatic and appears it was a contaminated sample, culture pending. 3 - Urine culture results reviewed. Multiple organisms consistent with skin fl ora - likely contamination. Will continue with plan above, as patient remains asymptomatic 3/6 -Patient offers no complaints consistent with urinary tract infection. Mental Health & Subst Abuse Tx Psychiatrist Name of Psychiatrist: none Therapist Name of Therapist: [facility] Date of Therapist Appointment: 10/19/19 Time of Therapist Appointment: 3:30pm Therapy Appointment Comment: [address], [place] [address] Auto Overhauler Name of Auto Overhauler: Sharoneva Lozano [facility] Phone Number for Auto Overhauler: [phone] Date of Appointment with Auto Overhauler: 10/19/19 Time of Appointment with Auto Overhauler: 1:30pm Case Management Appointment Comment: [address], [address], [place] [address] Post Discharge Appointments Primary Care Physician Name Of Family Doctor: None, recommend that you secure new PCP when insurance is active Provider Appointment Comment: If not approved for [place],can call [place] [employer] [phone] Smoking Cessation Counseling Tobacco Cessation Medication Prescribed at Discharge: Offered & Prescribed Contact Information Discharge Discharge Address: [address] [place] [id number] Discharge Plan Discharge Items Patient Disposition: Home - Self-Care Reason For Visit: DEPRESSION,SI Discharge Diagnosis: Depression Activity: Resume your previous activity Non-emergency contact: Therapist and Validation Software Facilitator Call non-emergency contact if: your symptoms worsen Follow-up/Referrals: PCP,NO [Primary Care Provider] - Diet: Regular Addtl Attending Provider Instructions: SPECIAL CARE INSTRUCTIONS: 1. Follow through with your scheduled aftercare appointments. If unable to keep an appointment, please call to reschedule. 2. Take your medication only as prescribed. Medication should not be changed or stopped without the approval of your doctor. In the event of worsening symptoms or concerns about side effects, contact your doctor immediately. 3. Utilize new healthy coping skills, anger management skills, and stress management skills learned during your hospitalization. Journal feelings and process them with a support person. Identify stressors or situations that may result in relapse, deterioration or inappropriate behaviors and develop a plan to deal with those issues. 4. If your coping skills are ineffective and you are in crisis, contact your outpatient providers for direction. If unable to reach your providers, please call the CAN HELP LINE AT or go to the closest Emergency Room. 5. Avoid alcohol and un-prescribed drugs. 6. You have been provided with the Mental Health Advance Directives Pamphlet for your review. AFTERCARE APPOINTMENTS: * Please call your insurance company prior to your scheduled appointment to confirm your aftercare providers are covered. Take your insurance information to your appointments. WHO TO CALL AND WHEN: Medical Emergencies: For questions or emergencies related to your hospital stay, please contact the [facility] Behavioral Health Unit at [phone]. A marketing project lead is on-call 04/03 for the Behavioral Health Unit for emergencies At any time you feel your situation is an emergency, you may also call 911 immediately. Your Doctors Instructions noted above were prepared by provider Malcolm Montez MD. Addtl Materials Branch Chief Provider Instructions: Continue smoking cessation efforts. Pending Studies at Discharge: No Stand-Alone Forms: My [facility], Smoking Cessation, Suicide Prevention Resources Medications and DC Order Prescriptions: No Action No Known Home Medications RF: 0 Discharge Orders: Discharge Order (Routine); Ordered 10/16/19 Ordered By: Malcolm Valentin/Other Patient Handouts: Addiction Alcohol, Addiction Recovery [place] [facility] Relapse Admission Data Admit Date/Time: 10/13/19 12:08 Attending Provider: Malcolm Montez Admit Provider: Shannon Ponce Primary Care Provider: PCP,NO Other Interventions: PSY Interdisciplinary Discharge Planning Last Done: 10/16/19 10:33 [place] [address] D/C day mgmt > 30 min Patient Type Established History Expanded Problem Focused Exam Expanded Problem Focused Medical Decision Making Moderate Complexity Diagnoses Suicidal ideation R45.851 Alcohol dependence F10.20 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
[2019-10-16] MEDS ORDERED: GABAPENTIN 600 MG TAB PO SCH ×2 (16:41→18:00)
== END 2019-10-16 14:10 | disposition home or self-care (01) | DRG 897 ==
LOC: ED 18:05 → 3S 10-13 11:56 → SUATTDRO 10-13 12:08 → 3S 10-13 12:08

== ENCOUNTER 2024-05-10 09:13 | Inpatient (IN) ==
--- NOTE | 2024-05-10 09:44 | Emergency Department Note ---
Impression & Plan Compression fracture of lumbar vertebra, Hypomagnesemia, Nausea & vomiting, Acute hypokalemia, Acute low back pain ED Provider Note HISTORY OF PRESENT ILLNESS: Patient is a 59-year-old female presenting with low back pain. Patient reports symptoms been ongoing for the last 4 to 5 weeks. Denies any recent falls or injury to the back. Reports the low back pain started randomly, and got progressively worse in the last 48 hours or so she states that she has had intermittent episodes of nausea and vomiting over the last 4 to 5 days. Denies any fevers. She states that the pain today was significantly worse than it had been over the last month. Reports that she has been dry heaving today. She denies any abdominal pain. Denies any chest pain or shortness of breath. Denies any dysuria, but does report she had some blood in her urine this morning. She reports she took some Advil earlier this morning with little relief in her symptoms. Denies any bowel or bladder incontinence. Denies any saddle anesthesia. Denies any numbness or tingling in her lower extremities. She reports she has had poor oral intake for the last week. Denies any recent travel. Denies any abdominal surgical history. ROS: as above PHYSICAL EXAM: Constitutional: Patient appears in no acute distress. HENT: Head: Normocephalic and atraumatic. Eyes: EOMI, PERRL Mouth/Throat: Mucous membranes moist. Neck: Trachea midline. Neck supple. Cardiovascular: Tachycardic with regular rhythm. No murmurs, rubs or gallops. Intact distal pulses. Pulmonary/Chest: No respiratory distress. Breath sounds clear and equal bilaterally. No wheezes or rales. Abdominal: Abdomen soft, no tenderness, rebound or guarding. Back: No CVA tenderness. Lower lumbar midline tenderness to palpation. Bilateral lower lumbar paraspinal tenderness to palpation. No obvious step-offs or deformities. Musculoskeletal: No edema, tenderness or deformity noted. Skin: Warm and dry. No rash, erythema, pallor or cyanosis Psychiatric: Appropriate mood and affect for situation. Neurological: Alert and keenly responsive. CN II-XII grossly intact, moving all extremities equally and fully. MDM: - Vitals signs showed hypertension and tachycardia. - History obtained via patient. History as above. - Chronic conditions affecting care: alcohol abuse; depression - Differential diagnoses include, but are not limited to: Compression fracture; muscle spasm; UTI; ureteral stone; epidural hematoma - Order placed for continuous cardiac monitoring. At this time, monitor showed rate of 63 bpm with normal sinus rhythm, per my interpretation. - External medical records reviewed. Discharge summary dated 10/16/2019 was reviewed. Patient was admitted at that time for alcohol withdrawal and depression. - EKG interpreted by myself showed normal sinus rhythm. Rate 59 bpm. QT 436. No acute ischemic changes. - Laboratory workup interpreted by myself showed normal WBC; slight hyponatremia (Na 135); hypokalemia (K 2.5); elevated anion gap (17); hypomagnesemia (Mg 1.1); elevated AST (79); elevated total bilirubin (79); normal lipase; normal lactate - CT abdomen/pelvis with IV contrast showed acute appearing superior endplate compression fractures of T10 and L1. - Patient initially given 4 mg IV morphine for pain control on arrival to the ER and given 4 mg IV Zofran for her nausea with 1 L normal saline. She was also given a lidocaine patch for further pain control. - Given a total of 30 mEq IV potassium and 2g IV magnesium for electrolyte replacement. - On reassessment, patient reports her pain initially improved with the pain medications but has returned. Ordered an additional 4 mg IV morphine. She does feel like her nausea has improved -Electrolyte abnormalities are likely secondary to the patient's multiple episodes of vomiting over the last few days. - Discussed results with the patient. Will admit for her electrolyte abnormality and pain management for her compression fractures. - Discussion was had with renal case manager about patient's case and need for admission - Hospitalist consulted for admission - Patient admitted to [facility] Hospitalist service for further evaluation and management. I have personally spent 36 minutes of critical care time in the direct management of this patient. This includes bedside care, interpretation of diagnostic studies, and testing, discussion with consultants, patient, and family members, and other required patient management activities. This 36 minutes is in excess of all separately billable procedures. ASSESSMENT AND PLAN: Diagnosis: acute low back pain; nausea and vomiting; acute hypokalemia; hypomagnesemia; compression fracture of lumbar vertebrae Plan: admit Past Med/Surg History Problem List (Updated 05/10/24 @ 14:30 by Alesia Lopez MD) Acute low back pain (Acute) Acute hypokalemia (Acute) Nausea & vomiting (Acute) Hypomagnesemia (Acute) Compression fracture of lumbar vertebra (Acute) Abnormal urinalysis Alcohol dependence Substance or medication-induced depressive disorder Alcohol intoxication (Acute) Suicidal ideation (Acute) Compression fx, thoracic spine (Acute) Closed sacral fracture (Acute) Abdominal pain (Acute) UTI (urinary tract infection) (Acute) Hypomagnesemia (Acute) Alcohol withdrawal (Acute) Medical History Depression Alcohol abuse Surgical History No history of previous surgery Family History Other Past medical history not known due to adoption Denies family history of Ovarian cancer Prostate cancer Myocardial infarction Breast cancer Colorectal cancer Social History Smoking Status: Current every day smoker Tobacco Type: Cigarettes packs per day: 1; Hx Alcohol Use: No Hx Substance Use: No Preferred Language: Solomon Islander Communication Ability: Effective Visual Impairment: No Limitations Hearing Ability: Normal Hemmer Chainstitch Required: No Beliefs That Will Affect Care: None marital status: Current Living Situation: Spouse and Family current occupational status: employed Feels Safe at Home: Yes Dental Care, Regularly: No Seatbelt Use: always Assistive Devices: Glasses Allergies Allergies Allergy/AdvReac Type Severity Reaction Status Date / Time No Known Allergies Allergy Unknown Verified 10/13/19 03:34 Home Meds Home Medications Medication Instructions Recorded Confirmed ibuprofen 1 tab PO DIRECTED PRN Pain 05/10/24 05/10/24 Results & Data (ED) Vital Signs Vital Signs - 24 hr 05/10/24 09:18 05/10/24 09:25 05/10/24 10:05 Temperature 36.6 C Temperature Source Temporal Artery Scan Pulse Rate 102 H Pulse Rate [Apical] Respiratory Rate 20 Respiratory Effort / Characteristics Spontaneous Respiratory Depth Normal Respiratory Pattern Regular Blood Pressure [Left Arm] 141/78 H Blood Pressure Mean [Left Arm] 99 Blood Pressure Position [Left Arm] Pulse Oximetry 98 Oxygen Delivery Method Room Air Room Air Sepsis Recent Fever Within 48 Hours No Sepsis New/Unexplained Change in Mental Status No Sepsis Action Taken by Nursing No Action Required 05/10/24 10:11 05/10/24 10:12 05/10/24 12:00 Temperature 37 C Temperature Source Oral Pulse Rate Pulse Rate [Apical] 74 66 Respiratory Rate 18 18 Respiratory Effort / Characteristics Non-Labored Spontaneous Respiratory Depth Respiratory Pattern Blood Pressure [Left Arm] 128/74 Blood Pressure Mean [Left Arm] 92 Blood Pressure Position [Left Arm] Lying Pulse Oximetry 100 96 Oxygen Delivery Method Room Air Room Air Sepsis Recent Fever Within 48 Hours Sepsis New/Unexplained Change in Mental Status Sepsis Action Taken by Nursing 05/10/24 12:08 Temperature Temperature Source Pulse Rate 61 Pulse Rate [Apical] Respiratory Rate Respiratory Effort / Characteristics Respiratory Depth Respiratory Pattern Blood Pressure [Left Arm] Blood Pressure Mean [Left Arm] Blood Pressure Position [Left Arm] Pulse Oximetry Oxygen Delivery Method Sepsis Recent Fever Within 48 Hours Sepsis New/Unexplained Change in Mental Status Sepsis Action Taken by Nursing Laboratory Data 05/10/24 10:05 05/10/24 10:05 Lab Results 05/10/24 05/10/24 Range/Units 10:05 13:25 WBC 5.18 (4.8-10.8) K/ul RBC 4.63 (4.20-5.40) M/uL Hgb 14.5 (12.0-16.0) g/dl Hct 41.0 (37.0-47.0) % MCV 88.6 (80.0-100.0) fL MCH 31.3 (25.0-34.0) pg MCHC 35.4 (32.0-36.0) g/dL RDW Std Deviation 50.4 H (36.4-46.3) fL RDW Coeff of Wilder 18.1 H (11.5-14.5) % Plt Count 87 L (130-400) K/uL MPV 10.9 (9.4-12.4) fL Immature Gran % (Auto) 0.4 % Neut % (Auto) 73.9 % Lymph % (Auto) 17.2 % [place] % (Auto) 7.7 % Eos % (Auto) 0.0 % Baso % (Auto) 0.8 % Neut # (Auto) 3.83 (1.40-6.50) K/uL Lymph # (Auto) 0.89 L (1.20-3.40) K/uL [place] # (Auto) 0.40 (0.11-0.59) K/uL Eos # (Auto) 0.00 (0.00-0.50) K/uL Baso # (Auto) 0.04 (0.00-0.20) K/uL Immature Gran # (Auto) 0.02 (0.01-0.20) K/uL Absolute Nucleated RBC 0.03 (0.00-0.12) K/uL Nucleated RBC % (auto) 0.6 % RBC Morphology Unremarkable PT 10.8 (9.0-12.0) Seconds INR 1.0 (0.9-1.1) Sodium 135 L (136-145) mmol/L Potassium 2.5 L* (3.5-5.1) mmol/L Chloride 91 L (98-107) mmol/L Carbon Dioxide 27 (21-32) mmol/L Anion Gap 17 H (3-11) BUN 10 (6-23) mg/dl Creatinine 0.63 (0.6-1.2) mg/dl Est Cr Clr Drug Dosing Not Reportable Est GFR ( Amer) 113.8 ml/min Est GFR (Non-Af Amer) 98.2 ml/min BUN/Creatinine Ratio 15.9 (10-20) Glucose 92 (70-99(Fasting)) mg/dl Lactate 1.7 (0.4-2.0) mmol/L Calcium 9.4 (8.6-10.3) mg/dl Magnesium 1.1 L (1.7-2.4) mg/dl Total Bilirubin 2.1 H (0.2-1.0) mg/dl AST 79 H (13-39) U/L ALT 39 (7-52) U/L Alkaline Phosphatase 183 H (34-104) U/L Total Protein 7.1 (6.0-8.3) gm/dl Albumin 4.4 (3.4-5.0) gm/dl Globulin 2.7 (2.5-4.0) gm/dl Albumin/Globulin Ratio 1.6 (0.9-2) Lipase 15 (11-82) U/L Urine Color Yellow Urine Appearance Clear (Clear) Urine pH 8.0 H (4.5-7.5) Ur Specific [place] > 1.045 H (1.000-1.030) Urine Protein 1+ H (Negative) Urine Glucose (UA) Negative (Negative) Urine Ketones 1+ H (Negative) Urine Blood Negative (Negative) Urine Nitrite Negative (Negative) Urine Bilirubin Negative (Negative) Urine Urobilinogen Negative (Negative) Ur Leukocyte Esterase Trace H (Negative) Urine WBC (Auto) 0-5 (0-5) /hpf Urine RBC (Auto) 0-2 (0-2) /hpf U Hyaline Cast (Auto) 0-2 (0-2) /lpf U Epithel Cells (Auto) 0-2 (0-2) /hpf Urine Bacteria (Auto) 1+ H (None Seen) Administered Medications Discontinued Medications Sodium Chloride (Nss) 1,000 mls @ 999 mls/hr IV .Q1H1M STA Stop: 05/10/24 10:23 Last Infusion: 05/10/24 10:48 Dose: Infused Documented By: Admin: 05/10/24 10:06 Dose: 999 mls/hr Documented By: KELSIE Potassium Chloride (K Cole / Wtr) 10 meq in 100 mls @ 100 mls/hr IV Q1H MATTHEW Stop: 05/10/24 13:59 Last Admin: 05/10/24 13:45 Dose: 100 mls/hr Documented By: Infusion: 05/10/24 13:42 Dose: Infused Documented By: Admin: 05/10/24 12:42 Dose: 100 mls/hr Documented By: Infusion: 05/10/24 12:06 Dose: Infused Documented By: Admin: 05/10/24 11:06 Dose: 100 mls/hr Documented By: MASOOD Magnesium Sulfate/Dextrose (Magnesium Sulfate / D5w) 1 gm in 100 mls @ 100 mls/hr IV Q1H MATTHEW Stop: 05/10/24 12:58 Last Infusion: 05/10/24 14:07 Dose: Infused Documented By: Admin: 05/10/24 12:40 Dose: 100 mls/hr Documented By: Infusion: 05/10/24 12:11 Dose: Infused Documented By: Admin: 05/10/24 11:11 Dose: 100 mls/hr Documented By: MASOOD Ioversol (Optiray 320 100ml) 93 ml IV ONCE ONE Stop: 05/10/24 11:20 Last Admin: 05/10/24 11:19 Dose: 93 ml Documented By: GELA Lidocaine (Lidocaine 5% 1 Patch) 1 patch TD NOW STA Stop: 05/10/24 09:42 Last Admin: 05/10/24 10:12 Dose: 1 patch Documented By: KELSIE Morphine Sulfate (Morphine Sulfate 4 Mg/Ml 1 Ml Carp\Vial) 4 mg IV NOW STA Stop: 05/10/24 09:42 Last Admin: 05/10/24 10:07 Dose: 4 mg Documented By: KELSIE Ondansetron HCl (Ondansetron Inj 2 Mg/Ml 2 Ml Vial) 4 mg IV NOW STA Stop: 05/10/24 09:42 Last Admin: 05/10/24 10:07 Dose: 4 mg Documented By: KELSIE Imaging Data Radiologist's Impression: Abdomen/Pelvis CT 05/10/24 09:23 CT SCAN OF THE ABDOMEN AND PELVIS WITH IV CONTRAST CLINICAL HISTORY: Right-sided low back pain. Right flank pain. COMPARISON STUDY: Abdominal CT dated 10/12/2019. TECHNIQUE: Following the IV administration of 93 cc of Optiray 320, CT scan of the abdomen and pelvis is performed from the lung bases to the proximal femora. Images are reviewed in the axial, sagittal, and coronal planes. IV contrast was administered without complication. A dose lowering technique was utilized adhering to the principles of ALARA. CT DOSE: 420.88 mGy.cm FINDINGS: Lung bases: The heart is normal in size and without pericardial effusion. The lung bases are clear. Liver: The contrast-enhanced liver is top normal in size and demonstrates diffusely diminished attenuation indicating severe steatosis. There is no intrahepatic biliary ductal dilatation. The hepatic veins and portal veins are patent. Gallbladder: Unremarkable. Spleen: Normal in size and attenuation. Pancreas: Unremarkable. Adrenal glands: Unremarkable. Kidneys: The contrast enhanced kidneys are normal in size and without hydronephrosis. The kidneys enhance symmetrically. Abdominal vasculature: The abdominal aorta is normal in course and caliber noting moderate advanced atherosclerotic calcification. There is ectasia of the superior mesenteric artery which measures up to 1.0 cm in diameter. 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 The vessel remains patent. Bowel: There is moderate colonic diverticulosis without CT evidence of acute diverticulitis. No bowel obstruction is seen. The appendix is well-visualized and normal. Peritoneum: There is no intraperitoneal free air or abdominal ascites. There is a fat-containing umbilical hernia. Lymphadenopathy: None. Pelvic viscera: The bladder, uterus, and adnexa are normal as visualized. Skeletal structures: The skeletal structures are osteopenic. There is a mild chronic superior endplate compression deformity of T12. There are acute appearing superior end plate compression fractures of T10 and L1. There is mild loss of height at both levels and paravertebral edema. No significant retropulsion of fragments is seen. There is not a moderately sacral spondylosis. No lytic or blastic lesions are seen. IMPRESSION: 1. There are acute appearing superior endplate compression fractures of T10 and L1 with mild loss of height at both levels and paravertebral edema. No significant retropulsion of fragments is seen. 2. No acute infectious or inflammatory findings are identified in the abdomen or pelvis. 3. 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 This is age indeterminant and may be chronic. The vessel remains patent. 4. Severe hepatic steatosis. 5. Colonic diverticulosis without CT evidence of acute diverticulitis. 6. Additional findings as above. ACT 112: Negative or not required by law. Electronically signed by: Dirk Neville M.D. 05/10/2024 12:18 PM Discharge Plan Visit Data Chief Complaint: Flank Pain Stated Complaint: LOWER BACK PAIN, VOMITING, NAUSEA, DIZZINESS ED Provider: Alesia Lopez Discharge Problem: Compression fracture of lumbar vertebra, Hypomagnesemia, Nausea & vomiting, Acute hypokalemia, Acute low back pain Forms Stand Alone Forms: [place] Prescriptions Prescriptions: No Action ibuprofen 1 tab PO DIRECTED PRN (Reason: Pain) Referrals Referrals: PCP,NO [Primary Care Provider] -
[2024-05-10] MEDS: SODIUM CHLORIDE 0.9% 1,000 ML IV STA (10:06)
[2024-05-10] MEDS: MoRPHine SULFATE 4 MG/ML 1 ML CARP\\VIAL IV STA ×2 (10:07→14:35)
[2024-05-10] MEDS: ONDANSETRON INJ 2 MG/ML 2 ML VIAL IV STA (10:07)
[2024-05-10] MEDS: LIDOCAINE 5% 1 PATCH TD STA (10:12)
[2024-05-10 10:43] LABS: Hemoglobin 14.5 g/dl (12.0-16.0); Mean Corpuscular Hemoglobin 31.3 pg (25.0-34.0); Mean Corpuscular Hgb Conc 35.4 g/dL (32.0-36.0); Mean Corpuscular Volume 88.6 fL (80.0-100.0); Mean Platelet Volume 10.9 fL (9.4-12.4); Nucleated RBC # (auto) 0.03 K/uL (0.00-0.12); Nucleated RBC % (auto) 0.6 %; Platelet Count 87 K/uL (130-400); RDW Coefficient of Variation 18.1 % (11.5-14.5); RDW Standard Deviation 50.4 fL (36.4-46.3); Red Blood Count 4.63 M/uL (4.20-5.40); White Blood Count 5.18 K/ul (4.8-10.8)
[2024-05-10 10:53] LABS: Alanine Aminotransferase 39 U/L (7-52); Albumin Globulin Ratio 1.6 (0.9-2); Albumin Level 4.4 gm/dl (3.4-5.0); Alkaline Phosphatase 183 U/L (34-104); Anion Gap 17 (3-11); Aspartate Aminotransferase 79 U/L (13-39); BUN Creatinine Ratio 15.9 (10-20); Bilirubin,Total 2.1 mg/dl (0.2-1.0); Blood Urea Nitrogen 10 mg/dl (6-23); Calcium 9.4 mg/dl (8.6-10.3); Carbon Dioxide 27 mmol/L (21-32); Chloride 91 mmol/L (98-107); Est GFR (African American) 113.8 ml/min; Est GFR (Non-African American) 98.2 ml/min; Globulin 2.7 gm/dl (2.5-4.0); Glucose 92 mg/dl (70-99(Fasting)); Lipase 15 U/L (11-82); Magnesium 1.1 mg/dl (1.7-2.4); Potassium 2.5 mmol/L (3.5-5.1); Prothrombin Time 10.8 Seconds (9.0-12.0); Sodium 135 mmol/L (136-145); Total Protein 7.1 gm/dl (6.0-8.3)
[2024-05-10 11:06] LABS: Basophils # (auto) 0.04 K/uL (0.00-0.20); Basophils % (auto) 0.8 %; Immature Granulocytes # (auto) 0.02 K/uL (0.01-0.20); Immature Granulocytes % (auto) 0.4 %; Lymphocytes # (auto) 0.89 K/uL (1.20-3.40); Lymphocytes % (auto) 17.2 %; Monocytes % (auto) 7.7 %; Neutrophils # (auto) 3.83 K/uL (1.40-6.50); Neutrophils % (auto) 73.9 %; RBC Morphology Unremarkable
[2024-05-10] MEDS: POTASSIUM CHLORIDE / WTR 10 MEQ/100 ML PLCT IV SCH (11:06)
[2024-05-10] MEDS: MAGNESIUM SULFATE / D5W 1 GM/100 ML BAG IV SCH (11:11)
[2024-05-10] MEDS: OPTIRAY 320 100ml IV ONE (11:19)
--- NOTE | 2024-05-10 12:20 | CT Scan Report ---
CT SCAN OF THE ABDOMEN AND PELVIS WITH IV CONTRAST CLINICAL HISTORY: Right-sided low back pain. Right flank pain. COMPARISON STUDY: Abdominal CT dated 10/12/2019. TECHNIQUE: Following the IV administration of 93 cc of Optiray 320, CT scan of the abdomen and pelvi s is performed from the lung bases to the proximal femora. Images are reviewed in the axial, sagittal , and coronal planes. IV contrast was administered without complication. A dose lowering technique wa s utilized adhering to the principles of ALARA. CT DOSE: 420.88 mGy.cm FINDINGS: Lung bases: The heart is normal in size and without pericardial effusion. The lung bases are clear. Liver: The contrast-enhanced liver is top normal in size and demonstrates diffusely diminished attenu ation indicating severe steatosis. There is no intrahepatic biliary ductal dilatation. The hepatic ve ins and portal veins are patent. Gallbladder: Unremarkable. Spleen: Normal in size and attenuation. Pancreas: Unremarkable. Adrenal glands: Unremarkable. Kidneys: The contrast enhanced kidneys are normal in size and without hydronephrosis. The kidneys enh ance symmetrically. Abdominal vasculature: The abdominal aorta is normal in course and caliber noting moderate advanced a therosclerotic calcification. There is ectasia of the superior mesenteric artery which measures up to 1.0 cm in diameter. 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 T he vessel remains patent. Bowel: There is moderate colonic diverticulosis without CT evidence of acute diverticulitis. No bowel obstruction is seen. The appendix is well-visualized and normal. Peritoneum: There is no intraperitoneal free air or abdominal ascites. There is a fat-containing umbi lical hernia. Lymphadenopathy: None. Pelvic viscera: The bladder, uterus, and adnexa are normal as visualized. Skeletal structures: The skeletal structures are osteopenic. There is a mild chronic superior endplat e compression deformity of T12. There are acute appearing superior end plate compression fractures of T10 and L1. There is mild loss of height at both levels and paravertebral edema. No significant retr opulsion of fragments is seen. There is not a moderately sacral spondylosis. No lytic or blastic lesi ons are seen. IMPRESSION: 1. There are acute appearing superior endplate compression fractures of T10 and L1 with mild loss of height at both levels and paravertebral edema. No significant retropulsion of fragments is seen. 2. No acute infectious or inflammatory findings are identified in the abdomen or pelvis. 3. 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 This is age in determinant and may be chronic. The vessel remains patent. 4. Severe hepatic steatosis. 5. Colonic diverticulosis without CT evidence of acute diverticulitis. 6. Additional findings as above. ACT 112: Negative or not required by law. Electronically signed by: Dirk Neville M.D. 05/10/2024 12:18 PM
[2024-05-10 13:54] LABS: Appearance Urine Clear (Clear); Bacteria Urine Automated 1+ (None Seen); Bilirubin Urine Negative (Negative); Blood Urine Negative (Negative); Cast Urine Automated 0-2 /lpf (0-2); Color Urine Yellow; Epithelial Cell Urine Auto 0-2 /hpf (0-2); Glucose Urine UA Negative (Negative); Ketones Urine 1+ (Negative); Leukocyte Esterase Urine Trace (Negative); Nitrite Urine Negative (Negative); Protein Urine 1+ (Negative); RBC Urine Automated 0-2 /hpf (0-2); Specific Gravity Urine > 1.045 (1.000-1.030); Urobilinogen Urine Negative (Negative); WBC Urine Automated 0-5 /hpf (0-5)
--- NOTE | 2024-05-10 15:01 | History & Physical Report ---
Date of Service May 10, 2024 Assessment & Plan (1) Acute low back pain: (2) Compression fracture of lumbar vertebra: Plan: Patient is 59 year old female with PMH depression, anxiety, alcohol use, tobacco use presented to ER with c/o back pain x 1 month. Denies fall or trauma. Today in ER afebrile, vitals stable CT abd/pelvis: There are acute appearing superior endplate compression fractures of T10 and L1 with mild loss of height at both levels and p aravertebral edema. No significant retropulsion of fragments is seen In ER given 1L NSS, Zofran, morphine total 8 mg IV, lidocaine patch Pain control with oxycodone, morphine prn Heat to area as needed Ortho spine consult (3) Abdominal pain: (4) Melena: (5) Nausea & vomiting: Plan: ?GI bleed Reported nausea for past 2 weeks and vomiting 2-3x day for 1 week and 1 episode diarrhea daily. Today noted black stool. Reported hematemesis one week ago. RUQ pain on exam CT abd/pelvis: No acute infectious or inflammatory findings are identified in the abdomen or pelvis. Colonic diverticulosis without CT evidence of acute diverticulitis. 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 This is age indeterminant and may be chronic. The vessel remains patent. Severe hepatic steatosis. CT abd/pelvis from 10/12/2019 reviewed and was without mention of mesenteric artery findings ER physician contacted salesperson [employer] [facility] [employer] vascular who reported likely chronic. Recommends that the patient have follow-up with vascular surgery, recommended repeat imaging in 3 to 6 months and to start aspirin 81mg and a statin. Will hold on aspirin at this time secondary to melena. Can start atorvastatin Will need outpatient follow up CT and vascular follow up (9) Thrombocytopenia: Plan: Plt: 87. Was 147 in 10/12/2019, 76 in 07/29/2018 Monitor CBC Possible ETOH related (10) Elevated LFTs: Plan: Hepatitic Steatosis T. bili: 2.1, AST: 79, ALT: 39, alk phos: 183. Lipase: WNL (10/12/2019 T bili: 0.6 on , AST: 44, ALT: 33, Alk Phos: 183. 07/29/18 AST: 487, ALT: 176, Alk phos: 115) CT abdomen pelvis: +hepatic steatosis Monitor LFT's US abdomen may need to be considered ETOH cessation recommended (11) Alcohol use: Plan: Reported prior moderate-heavy alcohol use, but states recently using once week but without clarification on amount. Reports last drink 3-4 days ago ETOH level pending Monitor for ETOH withdrawal Start thiamine, folic acid (12) Tobacco use: Plan: Nicotine patch DVT Prophylaxis SCDs Admit med tele Full Code as per discussion with pt Does not follow regularly with PCP secondary to lack of insurance. Pt was seen and care coordinated with Dr Beckman. See addendum I spent a total of 76 minutes reviewing notes, outpatient records, labs, medication, coordinating, documenting and providing care for this patient excluding time spent in the performance of separately billed services. History of Present Illness Chief Complaint: Back pain Primary Care Provider: NO PCP Patient is 59 year old female with PMH depression, anxiety, alcohol use, tobacco use presented to ER with c/o back pain x 1 month. Patient reports had sudden onset of mid and lower back pain 1 month ago. Denies any injury, trauma, or fall prior to back pain onset. She reports mid and low back pain is aggravated with any movement. She states pain has progressed and has been worse over the past 2 weeks. She admits was taking 8 tablets OTC ibuprofen daily. She states over the past week has had nausea and vomiting so has not been taking ibuprofen often. She did take 800 mg ibuprofen this morning. Denies extremity paresthesias or weakness. Denies heartburn or indigestion. Reported nausea for past 2 weeks and vomiting 2-3x day for 1 week and 1 episode diarrhea daily. Today noted black stool. Reported hematemesis one week ago. She complains of some right sided abdominal tenderness. States smokes 1/2ppd. Does not clarify how much she drinks but states drinks approximately once a week and states last drink was 3-4 days ago. Denies history alcohol withdrawal or seizures. Denies illicit drug use. Denies fever/chills, diaphoresis, LARKIN, dizziness, vision changes, neck pain, CP, SOB, palpitations, sore throat, otalgia, rhinorrhea, paresthesias, extremity weakness, extremity edema, rashes. Denies history EGD or colonoscopy in past. Denies depression symptoms or suicidal or homicidal ideations. Reports does not have insurance and has de ferred all screening exams in past. Allergies Allergy/AdvReac Type Severity Reaction Status Date / Time No Known Allergies Allergy Unknown Verified 10/13/19 03:34 Home Medications Medication Instructions Recorded Confirmed Type ibuprofen 1 tab PO DIRECTED PRN Pain 05/10/24 05/10/24 History Past Med/Surg History Problem List Tobacco use Alcohol use Melena Elevated LFTs Thrombocytopenia Abnormal computed tomography of abdomen and pelvis Acute low back pain (Acute) Acute hypokalemia (Acute) Nausea & vomiting (Acute) Hypomagnesemia (Acute) Compression fracture of lumbar vertebra (Acute) Abnormal urinalysis Alcohol dependence Substance or medication-induced depressive disorder Alcohol intoxication (Acute) Suicidal ideation (Acute) Compression fx, thoracic spine (Acute) Closed sacral fracture (Acute) Abdominal pain (Acute) UTI (urinary tract infection) (Acute) Hypomagnesemia (Acute) Alcohol withdrawal (Acute) Medical History Depression Alcohol abuse Surgical History No history of previous surgery Family History Other Past medical history not known due to adoption Denies family history of Ovarian cancer Prostate cancer Myocardial infarction Breast cancer Colorectal cancer Social History Smoking Status: Current every day smoker Tobacco Type: Cigarettes packs per day: 1; Hx Alcohol Use: No Hx Substance Use: No Preferred Language: [place] Communication Ability: Effective Visual Impairment: No Limitations Hearing Ability: Normal Reception Clerk Required: No Beliefs That Will Affect Care: None marital status: Current Living Situation: Spouse and Family current occupational status: employed Feels Safe at Home: Yes Dental Care, Regularly: No Seatbelt Use: always Assistive Devices: Glasses Review of Systems Review of Systems: All systems reviewed & are unremarkable except as noted in HPI & below Physical Exam Physical Exam: General: mild distress secondary to back pain, WDWN Head: normocephalic, atraumatic Eyes: conjunctiva non-injected, anicteric ENT: normal inspection external ears, nose, mucous membranes moist Neck: supple, trachea midline, non-tender to palpation Lungs: clear, no respiratory distress, no wheezing/rhonchi/rales CV: RRR, no murmur, no pretibial edema Abd: normal BS, soft, +tenderness to palpation RUQ with guarding Back: no skin discoloration, +tenderness with limited ROM of trunk, +tenderness to palpation entire thoracic and lumbar spine Ext: no cyanosis, no calf tenderness, pedal pushes and pulls intact bilaterally, reported sensation to light touch equal bilateral lower extremities Neuro: A&O x 3, no focal deficits noted Skin: warm, dry Results & Data Results & Data Vital Signs (Past 12 Hours) Vital Signs Temp Pulse Pulse Resp BP Pulse Ox O2 Del Method 05/10/24 14:00 71 18 106/65 96 Room Air 05/10/24 12:08 61 05/10/24 12:00 66 18 128/74 96 Room Air 05/10/24 10:12 37 C 05/10/24 10:11 74 18 100 Room Air 05/10/24 10:05 Room Air 05/10/24 09:25 141/78 H 05/10/24 09:18 36.6 C 102 H 20 98 Room Air Laboratory Results Short CBC 05/10/24 Range/Units 10:05 WBC 5.18 (4.8-10.8) K/ul Hgb 14.5 (12.0-16.0) g/dl Hct 41.0 (37.0-47.0) % Plt Count 87 L (130-400) K/uL BMP 05/10/24 10:05 Sodium 135 L Potassium 2.5 L* Chloride 91 L Carbon Dioxide 27 BUN 10 Creatinine 0.63 Glucose 92 Calcium 9.4 Liver Function 05/10/24 Range/Units 10:05 Total Bilirubin 2.1 H (0.2-1.0) mg/dl AST 79 H (13-39) U/L ALT 39 (7-52) U/L Alkaline Phosphatase 183 H (34-104) U/L Albumin 4.4 (3.4-5.0) gm/dl Urine 05/10/24 Range/Units 13:25 Urine Color Yellow Urine Appearance Clear (Clear) Urine pH 8.0 H (4.5-7.5) Ur Specific [place] > 1.045 H (1.000-1.030) Urine Protein 1+ H (Negative) Urine Glucose (UA) Negative (Negative) Diagnostic Findings Abdomen/Pelvis CT 05/10/24 09:23 CT SCAN OF THE ABDOMEN AND PELVIS WITH IV CONTRAST CLINICAL HISTORY: Right-sided low back pain. Right flank pain. COMPARISON STUDY: Abdominal CT dated 10/12/2019. TECHNIQUE: Following the IV administration of 93 cc of Optiray 320, CT scan of the abdomen and pelvis is performed from the lung bases to the proximal femora. Images are reviewed in the axial, sagittal, and coronal planes. IV contrast was administered without complication. A dose lowering technique was utilized adhering to the principles of ALARA. CT DOSE: 420.88 mGy.cm FINDINGS: Lung bases: The heart is normal in size and without pericardial effusion. The lung bases are clear. Liver: The contrast-enhanced liver is top normal in size and demonstrates diffusely diminished attenuation indicating severe steatosis. There is no intrahepatic biliary ductal dilatation. The hepatic veins and portal veins are patent. Gallbladder: Unremarkable. Spleen: Normal in size and attenuation. Pancreas: Unremarkable. Adrenal glands: Unremarkable. Kidneys: The contrast enhanced kidneys are normal in size and without hydronephrosis. The kidneys enhance symmetrically. Abdominal vasculature: The abdominal aorta is normal in course and caliber noting moderate advanced atherosclerotic calcification. There is ectasia of the superior mesenteric artery which measures up to 1.0 cm in diameter. 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 The vessel remains patent. Bowel: There is moderate colonic diverticulosis without CT evidence of acute diverticulitis. No bowel obstruction is seen. The appendix is well-visualized and normal. Peritoneum: There is no intraperitoneal free air or abdominal ascites. There is a fat-containing umbilical hernia. Lymphadenopathy: None. Pelvic viscera: The bladder, uterus, and adnexa are normal as visualized. Skeletal structures: The skeletal structures are osteopenic. There is a mild chronic superior endplate compression deformity of T12. There are acute appearing superior end plate compression fractures of T10 and L1. There is mild loss of height at both levels and paravertebral edema. No significant retropulsion of fragments is seen. There is not a moderately sacral spondylosis. No lytic or blastic lesions are seen. IMPRESSION: 1. There are acute appearing superior endplate compression fractures of T10 and L1 with mild loss of height at both levels and paravertebral edema. No significant retropulsion of fragments is seen. 2. No acute infectious or inflammatory findings are identified in the abdomen or pelvis. 3. 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 This is age indeterminant and may be chronic. The vessel remains patent. 4. Severe hepatic steatosis. 5. Colonic diverticulosis without CT evidence of acute diverticulitis. 6. Additional findings as above. ACT 112: Negative or not required by law. Electronically signed by: Dirk Neville M.D. 05/10/2024 12:18 PM Supervising Physician Co-Signing Physician Notes Patient is a 59-year-old female with history of alcohol, tobacco use disorder, depression and other medical problems presents with worsening mid/lower back pain since 1 month duration. Patient admits to a fall 2 days ago but denies any prior falls at the time of onset of back pain. She denies any numbness or tingling of lower extremities, bowel or bladder incontinence, fever, chills. She has been using ibuprofen for pain control. Admits to have nausea, ongoing diarrhea and had melena this morning. Last alcohol drink was 3 to 4 days ago per patient. She also reports hematemesis 1 week ago. Please review HPI for complete details of presentation. I personally reviewed blood work and imaging studies. Noted chronic thrombocytopenia, hypokalemia, hypochloremia, hypomagnesemia. Noted elevated T. bili, AST, alkaline phosphatase. Toxicology screen, alcohol levels currently pending. BioFire negative. 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 Physical Exam: Vitals signs as noted above General Appearance:Moderately built, frail, chronically appearing, mild distress Head: normocephalic, Atraumatic Eyes: normal inspection, EOMI Neck: supple, Trachea midline Respiratory/Chest: Normal breath sounds, CTA, No accessory muscle use Cardiovascular: S1, S2, No murmur Abdomen/GI:Soft, RUQ tender,+ no rigidity, voluntary guarding, bowel sounds present Back+ tenderness thoracolumbar spinal region Extremities/Musculoskeletal:normal inspection, no edema Neurologic/Psych:AAOX3, grossly no focal neurological deficits Skin: normal color, warm Acute compression fractures T10, L1 Age indeterminant superior mesenteric artery dissection Melena Chronic thrombocytopenia Hypokalemia, hypomagnesemia Abnormal urinalysis--rule out UTI Hepatic steatosis, transaminitis Alcohol, tobacco use disorder Diarrhea Pain control, fall precautions, orthopedic spine consulted, PT OT as able Will start on statin, check lipid panel, consider to start on aspirin once GI bleed ruled out, consulted vascular surgery Monitor H&H and transfuse as needed, started on IV Protonix Monitor platelet count Replete electrolytes as needed Empirically started on Rocephin, follow-up urine culture Check gallbladder ultrasound, monitor LFTs Monitor for alcohol withdrawal, started on gabapentin protocol, thiamine, folic acid Nicotine patch Check stool studies to rule out infectious source Clear liquid diet, n.p.o. after midnight I personally interviewed and examined at bedside. Patient's care is coordinated with Emeli Vegas PA-C. I have reviewed the advanced practitioner's documentation, and I agree with plan of care. Please refer to the documentation above for details of patient's presentation and for discussion of other issues. I spent a total [id number] coordinating, documenting, and providing care for this patient excluding time spent in the performance of separately billed services.
[2024-05-10] MEDS: POTASSIUM CHLORIDE CRTAB 20 MEQ TABCR PO ONE (15:16)
[2024-05-10 15:45] LABS: Adenovirus PCR Not Detected (NotDetected); Bordetella parapertussis PCR Not Detected (NotDetected); Bordetella pertussis PCR Not Detected (NotDetected); Chlamydia pneumoniae PCR Not Detected (NotDetected); Coronavirus 229E PCR Not Detected (NotDetected); Coronavirus CoV-2 (COVID19)PCR Not Detected (NotDetected); Coronavirus HKU1 PCR Not Detected (NotDetected); Coronavirus NL63 PCR Not Detected (NotDetected); Coronavirus OC43PCR Not Detected (NotDetected); Human Metapneumovirus PCR Not Detected (NotDetected); Influenza A PCR Not Detected (NotDetected); Influenza B PCR Not Detected (NotDetected); Mycoplasma pneumoniae PCR Not Detected (NotDetected); Parainfluenza Virus 1 PCR Not Detected (NotDetected); Parainfluenza Virus 2 PCR Not Detected (NotDetected); Parainfluenza Virus 3 PCR Not Detected (NotDetected); Parainfluenza Virus 4 PCR Not Detected (NotDetected); Respiratory Syncytial VirusPCR Not Detected (NotDetected); Rhinovirus/Enterovirus PCR Not Detected (NotDetected)
[2024-05-10] MEDS ORDERED: PANTOPRAZOLE BOLUS/DRIP IV STA (15:50)
[2024-05-10] MEDS ORDERED: LORazepam 2 MG/1 ML VIAL IV PRN (16:53)
[2024-05-10] MEDS ORDERED: POLYETHYLENE (MIRALAX) 17 GM PACK PO PRN (16:53)
[2024-05-10] MEDS ORDERED: SODIUM CHLORIDE 0.9% 250 ML IV PRN (16:53)
[2024-05-10] MEDS ORDERED: GABAPENTIN 800MG ALCOHOL WITHDRAWAL LOAD PO STA (16:53)
[2024-05-10] MEDS ORDERED: ONDANSETRON INJ 2 MG/ML 2 ML VIAL IV PRN (16:53)
[2024-05-10] MEDS: PANTOprazole 80 MG in DEXTROSE 5% 100 ML IV ONE (17:02)
--- NOTE | 2024-05-10 17:05 | Electrocardiogram Report ---
Test Reason : Blood Pressure : */* mmHG Vent. Rate : 59 BPM Atrial Rate : 59 BPM P-R Int : 126 ms QRS Dur : 88 ms QT Int : 436 ms P-R-T Axes : 20 61 69 degrees QTcB Int : 431 ms Sinus bradycardia Cannot rule out Anterior infarct , age undetermined Abnormal ECG When compared with ECG of 12-Oct-2019 19:06, possible anterior ME is new Vent. rate has decreased by 39 bpm T wave inversion now evident in Anterior leads Confirmed by Karissa Lara (Samy) on 05/10/2024 5:04:45 PM Referred By: REFERRED SELF Confirmed By: Karissa Lara
[2024-05-10] MEDS: PANTOprazole 40 MG in DEXTROSE 5% MINI-B 100 ML IV SCH (17:18)
[2024-05-10] MEDS: NSS + 20MEQ KCL 20 MEQ/1,000 ML BAG IV SCH (17:38)
[2024-05-10] MEDS: MAGNESIUM SULFATE / D5W 1 GM/100 ML BAG IV ONE (17:38)
[2024-05-10] MEDS: NICOTINE 21 MG/24 HR TDSY TD SCH (17:38)
[2024-05-10] MEDS: ATORVASTATIN 20 MG TAB PO SCH (17:39)
[2024-05-10] MEDS: THIAMINE HCL 100 MG TAB PO SCH (17:39)
[2024-05-10] MEDS: FOLIC ACID 1 MG TAB PO SCH (17:39)
[2024-05-10] MEDS: GABAPENTIN 400 MG CAP PO ONE (17:40)
[2024-05-10] MEDS: cefTRIAXone SODIUM 1,000 MG/50 ML BAG IV SCH (18:08)
[2024-05-10] MEDS: POTASSIUM CHLORIDE 20 MEQ/15 ML UDC PO SCH (18:35)
[2024-05-10] MEDS: oxyCODONE HCL IR 5 MG TAB (IMMEDIATE RELEASE) PO PRN (20:22)
[2024-05-10 21:08] LABS: Hematocrit (blood only) 34.3 % (37.0-47.0); Hemoglobin 12.1 g/dl (12.0-16.0)
[2024-05-10 21:43] LABS: BUN Creatinine Ratio 14.8 (10-20); Calcium 8.1 mg/dl (8.6-10.3); Creatinine Clr Calc Pharmacy 89.8 ml/min; Est GFR (Non-African American) 99.2 ml/min; Magnesium 2.3 mg/dl (1.7-2.4)
--- NOTE | 2024-05-10 22:29 | Gastrointestinal Consultation ---
Date of Consultation May 10, 2024 Assessment & Plan (1) Melena: Patient with nausea vomiting questionable hematemesis as well as melena she has been taking large amount of ibuprofen over the last few weeks because of her back pain which secondary to compression fracture she states currently she is feeling a little bit better at the current time I would 1. Continue with PPI may transition to PPI twice daily from her trip 2. Plan EGD in a.m. 3. Further recommendations after EGD Abnormal LFTs Patient has elevation of her alkaline phosphatase as well as her AST she has a history of drinking on the CT scan there is fatty infiltration ration of the liver patient should abstain from EtOH in the future and can check hepatitis panel also Screening Patient has never had a colonoscopy she can get a colonoscopy as an outpatient Diarrhea Has intermittent diarrhea will check stool studies for C. difficile and culture and sensitivity Thank you for allowing us to take part in the care of your patient we will continue to follow her with you History of Present Illness Reason for Consultation: Nausea and vomiting possible melena Requesting Physician: Guru Bartholomew Attending Physician: Ken Beckman MD History of Present Illness A pleasant middle-age female who states that for the last approximately few weeks to a month has been having back pain this back pain got worse in light of that she decided to come in for an evaluation and on evaluation she was found to have a compression fracture of note for this back pain she has been taking a lot of ibuprofen she states she takes 4 pills at a time cannot really quantify how much she has been taking but she does state that she takes quite a bit of ibuprofen she denies any dysphagia or reflux she has been having nausea and vomiting she states that sometime last week she may have even thrown up some blood states no specific abdominal pain but she states that the pain from the back does radiate to her belly also and it is especially worse when she moves she is having variable amount of bowel movements and she states she may have seen blood in her stools or dark-colored stools sometime in the last week but she is not very specific about it currently her major issue is her back pains Allergies Allergy/AdvReac Type Severity Reaction Status Date / Time No Known Allergies Allergy Unknown Verified 10/13/19 03:34 Home Medications Medication Instructions Recorded Confirmed Type ibuprofen 1 tab PO DIRECTED PRN Pain 05/10/24 05/10/24 History Patient History Medical History Depression Alcohol abuse Surgical History No history of previous surgery Family History Other Past medical history not known due to adoption Denies family history of Ovarian cancer Prostate cancer Myocardial infarction Breast cancer Colorectal cancer Social History Smoking Status: Current every day smoker Tobacco Type: Cigarettes packs per day: 1; Hx Alcohol Use: Yes Alcohol type: hard liquor Hx Substance Use: No Preferred Language: [place] Communication Ability: Effective Visual Impairment: No Limitations Hearing Ability: Normal Inventory Audit Clerk Required: No Beliefs That Will Affect Care: None marital status: Current Living Situation: Other Current Living Situation Comment: lives with friend current occupational status: employed Feels Safe at Home: Yes Safety Concerns: Feels Safe At This Time Dental Care, Regularly: No Seatbelt Use: always Assistive Devices: Glasses Review of Systems Review of Systems: A 10 point review of systems was done Physical Exam Constitutional: WD/WN, vitals as above Respiratory: normal respiratory effort, lungs clear to auscultation Cardiovascular: RRR, no murmur, no edema Gastrointestinal (Abdomen): normal bowel sounds, soft, nontender, no hepatosplenomegaly (Rectal normal tone brown stools) Results & Data Vital Signs (Past 12 Hours) Vital Signs Temp Pulse Pulse Pulse Resp BP BP 05/10/24 20:00 36.9 C 84 20 97/59 L 05/10/24 17:30 73 05/10/24 17:26 05/10/24 16:56 37.0 C 80 16 114/70 05/10/24 16:13 71 18 120/60 05/10/24 14:00 71 18 106/65 05/10/24 12:08 61 05/10/24 12:00 66 18 128/74 Pulse Ox O2 Del Method 05/10/24 20:00 93 Room Air 05/10/24 17:30 05/10/24 17:26 Room Air 05/10/24 16:56 95 Room Air 05/10/24 16:13 95 Room Air 05/10/24 14:00 96 Room Air 05/10/24 12:08 05/10/24 12:00 96 Room Air PG Care Time/CCT Total # of Minutes Spent Total Time Spent with Patient: Total time spent is greater than 50% in coordination of care (as documented) at patient's floor/unit and/or counseling patient: Coding Level of Care Code 18614 IN/OBS CONSULT LVL 2,35M Diagnoses Melena K92.1
[2024-05-10 22:51] LABS: Amphetamines+Metham, Urine Neg (Neg); Barbiturates, Urine Neg (Neg); Benzodiazepine, Urine Neg (Neg); Cocaine, Urine Neg (Neg); Fentanyl, Urine Neg (Neg); MDMA (Ecstacy), Urine Neg (Neg); Marijuana, Urine Neg (Neg); Methadone, Urine Neg (Neg); Opiate, Urine Pos (Neg); Phencyclidine, Urine Neg (Neg)
[2024-05-10] MEDS: GABAPENTIN 400 MG CAP PO SCH (23:34)
[2024-05-11] MEDS: POTASSIUM CHLORIDE CRTAB 20 MEQ TABCR PO STA (01:50)
[2024-05-11] MEDS: MoRPHine SULFATE 2 MG/ML CARP IV PRN (02:10)
[2024-05-11 06:44] LABS: Albumin Globulin Ratio 1.7 (0.9-2); Albumin Level 3.6 gm/dl (3.4-5.0); BUN Creatinine Ratio 15.1 (10-20); Bilirubin,Total 0.9 mg/dl (0.2-1.0); Calcium 8.3 mg/dl (8.6-10.3); Chol HDL Ratio 1.5 (0-5); Creatinine Clr Calc Pharmacy 106.6 ml/min; Est GFR (African American) 120.5 ml/min; Est GFR (Non-African American) 103.9 ml/min; Globulin 2.1 gm/dl (2.5-4.0); Potassium 4.1 mmol/L (3.5-5.1); Total Protein 5.7 gm/dl (6.0-8.3)
[2024-05-11 06:46] LABS: Hematocrit (blood only) 36.1 % (37.0-47.0); Hemoglobin 11.9 g/dl (12.0-16.0); Mean Corpuscular Hemoglobin 31.2 pg (25.0-34.0); Mean Corpuscular Volume 94.8 fL (80.0-100.0); Mean Platelet Volume 11.3 fL (9.4-12.4); Platelet Count 67 K/uL (130-400); RDW Coefficient of Variation 19.3 % (11.5-14.5); RDW Standard Deviation 56.1 fL (36.4-46.3); Red Blood Count 3.81 M/uL (4.20-5.40); White Blood Count 4.76 K/ul (4.8-10.8)
--- NOTE | 2024-05-11 07:03 | Ultrasound Report ---
ABDOMINAL ULTRASOUND, RIGHT UPPER QUADRANT HISTORY: Acute right upper quadrant abdominal pain RUQ abd Pain. COMPARISON: CT 05/10/2024 FINDINGS: Pancreas: The pancreas demonstrates a normal echotexture. Liver: Hepatic steatosis. Patent portal vein. No evidence of cirrhosis or hepatic mass. Gallbladder: No gallbladder wall thickening. Mild layering gallbladder sludge. No gallstones. CBD: 6 mm. Right kidney: No hydronephrosis. IMPRESSION: 1. No cholelithiasis or sonographic evidence of acute cholecystitis. 2. Hepatic steatosis. 3. No biliary ductal dilation. ACT 112: Negative or not required by law. Electronically signed by: Alek Webb M.D. 05/11/2024 7:01 AM
[2024-05-11] MEDS: LIDOCAINE 5% 1 PATCH TD SCH (08:02)
[2024-05-11] MEDS: ACETAMINOPHEN 325 MG TAB PO PRN (08:08)
--- NOTE | 2024-05-11 09:56 | Anesthesiology Consultation ---
Date of Service May 11, 2024 Assessment & Plan Chart Review Chart Review: Acceptable Risk for Surgery and Patient NOT seen in Pre Admission Testing Consults Requested none ASA ASA4 Proposed Anesthesia Anesthesia Type: MAC History Surgery Operation Date: 05/11/24 16:30 Proposed Procedures p Esophagogastroduodenoscopy Akila Wilburn MD Height/Weight Height: 5 ft 6 in Weight: 59.1 kg Allergies Allergy/AdvReac Type Severity Reaction Status Date / Time No Known Allergies Allergy Unknown Verified 10/13/19 03:34 Medications Home Medications Medication Instructions Recorded Confirmed Last Taken ibuprofen 1 tab PO DIRECTED PRN Pain 05/10/24 05/10/24 Unknown Active Medications Generic Name Dose Route Start Last Admin Trade Name Freq PRN Reason Stop Dose Admin Acetaminophen 650 mg 05/10/24 16:53 05/11/24 08:08 Acetaminophen 325 Mg Tab PO 06/09/24 16:52 650 mg Q4H PRN Administration pain/fever Atorvastatin Calcium 20 mg 05/10/24 16:53 05/11/24 08:01 Atorvastatin 20 Mg Tab PO 06/09/24 16:52 20 mg QAM MATTHEW Administration Folic Acid 1 mg 05/10/24 16:53 05/11/24 08:01 Folic Acid 1 Mg Tab PO 06/09/24 16:52 1 mg QAM MATTHEW Administration Pantoprazole Sodium 40 mg/ 100 mls @ 20 mls/hr 05/10/24 16:15 05/11/24 06:27 Dextrose IV 06/09/24 16:14 8 mg/hr Q5H MATTHEW 20 mls/hr Administration 8 MG/HR Ceftriaxone Sodium 1,000 mg in 50 mls @ 100 mls/hr 05/10/24 17:00 05/10/24 18:46 Rocephin IV 05/12/24 16:59 Infused Q24H MATTHEW Infusion Potassium Chloride/Sodium Chloride 20 meq in 1,000 mls @ 100 mls/hr 05/10/24 16:53 05/11/24 05:15 Normal Saline W/20 Meq Kcl IV 05/11/24 12:52 100 mls/hr .Q10H MATTHEW Administration Lidocaine 1 patch 05/11/24 09:00 05/11/24 08:02 Lidocaine 5% 1 Patch TD 06/10/24 08:59 1 patch QAM MATTHEW Administration Miscellaneous 1 each 05/10/24 21:00 05/10/24 20:22 Remove Lidoderm Patch N/A 06/09/24 20:59 1 each DAILY@2100 MATTHEW Administration Miscellaneous 1 each 05/11/24 08:59 05/11/24 07:58 Remove Nicoderm Patch N/A 06/10/24 08:58 1 each DAILY@0859 MATTHEW Administration Morphine Sulfate 2 mg 05/10/24 16:53 05/11/24 02:10 Morphine Sulfate 2 Mg/Ml Carp IV 05/24/24 16:52 2 mg Q4H PRN Administration Mod-Sev Pain (Scale 4-10) Nicotine 1 patch 05/10/24 16:53 05/11/24 08:00 Nicotine 21 Mg/24 Hr Tdsy TD 06/09/24 16:52 1 patch QAM MATTHEW Administration Oxycodone HCl 5 mg 05/10/24 16:53 05/10/24 20:22 Oxycodone Hcl Ir 5 Mg Tab (Immediate Release) PO 05/24/24 16:52 5 mg Q6H PRN Administration Mild-Mod Pain (Scale 1-6) Potassium Chloride 20 meq 05/10/24 15:50 05/10/24 20:57 Potassium Chloride 20 Meq/15 Ml Udc PO 06/09/24 15:49 20 meq BID MATTHEW Administration Thiamine HCl 100 mg 05/10/24 16:53 05/11/24 08:01 Thiamine Hcl 100 Mg Tab PO 06/09/24 16:52 100 mg QAM MATTHEW Administration Past Medical History Medical History Depression Alcohol abuse anemia thrombocytopenia ASCVD Aorta Exercise / Class Metabolic Activity III < 4 Walking/Shop/Light housework Past Family History Family History Other Past medical history not known due to adoption Denies family history of Ovarian cancer Prostate cancer Myocardial infarction Breast cancer Colorectal cancer Past Surgical History Surgical History No history of previous surgery Past Anesthesia History No Hx of Anesthesia Complications and No Family Hx of Anesthesia Complications History of PONV No Hx of PONV and No Hx of Motion Sickness Social History Smoking Status: Current every day smoker tobacco type: cigarettes Hx Alcohol Use: Yes Alcohol type: hard liquor alcohol intake frequency: a few times a week Alcohol Intake Frequency Comment: last drink was 3 days ago Hx Substance Use: No Physical Exam Vital Signs Last Vital Signs Temp 36.9 C 05/11/24 08:30 Pulse 72 05/11/24 08:30 Resp 18 05/11/24 08:30 BP 110/72 05/11/24 08:30 Pulse Ox 95 05/11/24 08:30 O2 Del Method Room Air 05/11/24 08:30 Testing Laboratory Results 05/11/24 05:53 05/11/24 05:53 PT 10.8 Seconds (9.0-12.0) 05/10/24 10:05 INR 1.0 (0.9-1.1) 05/10/24 10:05 Urine Color Yellow 05/10/24 13:25 Urine Appearance Clear (Clear) 05/10/24 13:25 Urine pH 8.0 (4.5-7.5) H 05/10/24 13:25 Ur Specific Hoffman > 1.045 (1.000-1.030) H 05/10/24 13:25 Urine Protein 1+ (Negative) H 05/10/24 13:25 Urine Glucose (UA) Negative (Negative) 05/10/24 13:25 Urine Ketones 1+ (Negative) H 05/10/24 13:25 Urine Nitrite Negative (Negative) 05/10/24 13:25 Ur Leukocyte Esterase Trace (Negative) H 05/10/24 13:25 Urine WBC (Auto) 0-5 /hpf (0-5) 05/10/24 13:25 Urine RBC (Auto) 0-2 /hpf (0-2) 05/10/24 13:25 U Hyaline Cast (Auto) 0-2 /lpf (0-2) 05/10/24 13:25 U Epithel Cells (Auto) 0-2 /hpf (0-2) 05/10/24 13:25 Urine Bacteria (Auto) 1+ (None Seen) H 05/10/24 13:25 Blood Type A Positive 05/10/24 20:29 Antibody Screen NEGATIVE 05/10/24 20:29 Electrocardiogram Date: 05/11/24 Findings: + NSR @ (@ 66;? septal infarct,age ?)
--- NOTE | 2024-05-11 10:03 | Consultation ---
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 THis does not require surgical intervention. Recommend reeval in 1 year with mesenteric US. Office will call to schedule. Pt understands and is agreeable. History of Present Illness Reason for Consultation: SMA dissection Attending Physician: Dylan Mejias MD History of Present Illness 59 yo f with hx of depression, etoh dependence, admitted with severe back pain and found to have lumbar compression fx, seen in consultation today for SMA dissection noted on CT scan. Pt states no prior knowledge of this. Pt currently having some melena, for which she is being eval by GI. Denies LARKIN, fever, chest pain, SOB, N/V, rest pain, claudication, other complaints. CT scan demonstrates small/chronic appearing SMA dissection. Allergies Allergy/AdvReac Type Severity Reaction Status Date / Time No Known Allergies Allergy Unknown Verified 10/13/19 03:34 Home Medications Medication Instructions Recorded Confirmed Type ibuprofen 1 tab PO DIRECTED PRN Pain 05/10/24 05/10/24 History Patient History Medical History Depression Alcohol abuse Surgical History No history of previous surgery Family History Other Past medical history not known due to adoption Denies family history of Ovarian cancer Prostate cancer Myocardial infarction Breast cancer Colorectal cancer Social History Smoking Status: Current every day smoker Tobacco Type: Cigarettes packs per day: 1; Hx Alcohol Use: Yes Alcohol type: hard liquor Hx Substance Use: No Preferred Language: Hong Konger Communication Ability: Effective Visual Impairment: No Limitations Hearing Ability: Normal Director Of Event Management Required: No Beliefs That Will Affect Care: None marital status: Current Living Situation: Other Current Living Situation Comment: lives with friend current occupational status: employed Feels Safe at Home: Yes Dental Care, Regularly: No Seatbelt Use: always Assistive Devices: Glasses Review of Systems Review of Systems: All systems reviewed & are unremarkable except as noted in HPI & below Physical Exam Constitutional: WD/WN, vitals as above + in distress (tearful) Respiratory: normal respiratory effort Auscultation: lungs clear to auscultation bilaterally and + diminished lung sounds Cardiovascular: Rate/Rhythm: regular rate and regular rhythm Vessels: femoral pulses present, posterior tibial pulses present, dorsalis pedis pulses present and radial pulses present Extremities: normal capillary refill Gastrointestinal (Abdomen): Inspection/Auscultation: abdomen normal to inspection and normal bowel sounds Percussion/Palpation: abdomen soft; abdomen nontender Musculoskeletal: no cyanosis or clubbing, extremities motor strength 5/5 Skin: no rashes, warm and dry Neurologic: moves all extremities and awake; no focal motor deficits and not confused Psychiatric: Orientation: oriented x 3 Affect: + depressed affect, + anxious affect and + tearful affect Results & Data Vital Signs (Past 12 Hours) Vital Signs Temp Pulse Pulse Resp BP BP Pulse Ox 05/11/24 08:30 36.9 C 72 18 110/72 95 05/11/24 07:45 05/11/24 07:15 60 05/11/24 02:17 37.0 C 68 18 104/69 96 05/10/24 23:20 36.8 C 69 20 101/65 93 O2 Del Method 05/11/24 08:30 Room Air 05/11/24 07:45 Room Air 05/11/24 07:15 05/11/24 02:17 Room Air 05/10/24 23:20 Room Air
--- NOTE | 2024-05-11 10:17 | Consultation ---
Date of Consultation May 11, 2024 Assessment & Plan (1) Compression fracture of lumbar vertebra: Dr. Rdz has reviewed imaging and treatment plan. Thoracic CT has also been performed. Shows acute T11 and L2 compression fractures. Most of her pain though is actually SI joint related. Treatment is conservative. I have ordered a TLSO brace to be worn when walking and standing. May remove when in a seated position and when laying down. No lifting over 5 pounds. Conservative treatment for SI joint dysfunction as well. History of Present Illness Reason for Consultation: compression fractures Attending Physician: Dylan Mejias MD History of Present Illness Is a pleasant 59-year-old female whose had back pain over the past month but progressively worsening over the past week. No specific accident, trauma, fall. Most of her pain currently is located across the right sacroiliac region. This pain is reproduced when she changes positions from a seated to a standing position. No radicular leg pain. She typically ambulates independently. She has been applying ice and heat as well as taking ibuprofen for pain control at home. Allergies Allergy/AdvReac Type Severity Reaction Status Date / Time No Known Allergies Allergy Unknown Verified 10/13/19 03:34 Home Medications Medication Instructions Recorded Confirmed Type ibuprofen 1 tab PO DIRECTED PRN Pain 05/10/24 05/10/24 History Patient History Medical History Depression Alcohol abuse Surgical History No history of previous surgery Family History Other Past medical history not known due to adoption Denies family history of Ovarian cancer Prostate cancer Myocardial infarction Breast cancer Colorectal cancer Social History Smoking Status: Current every day smoker Tobacco Type: Cigarettes packs per day: 1; Hx Alcohol Use: Yes Alcohol type: hard liquor Hx Substance Use: No Preferred Language: Irish Communication Ability: Effective Visual Impairment: No Limitations Hearing Ability: Normal 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 This creates mild discomfort. She has lidocaine patch over the right SI joint region. She has exquisite tenderness over the right sciatic notch region. Modest tenderness over the midline lower thoracic and upper lumbar region to palpation. Strength is 5 5 bilateral lower extremities Results & Data Vital Signs (Past 12 Hours) Vital Signs Temp Pulse Pulse Resp BP BP Pulse Ox 05/11/24 08:30 36.9 C 72 18 110/72 95 05/11/24 07:45 05/11/24 07:15 60 05/11/24 02:17 37.0 C 68 18 104/69 96 05/10/24 23:20 36.8 C 69 20 101/65 93 O2 Del Method 05/11/24 08:30 Room Air 05/11/24 07:45 Room Air 05/11/24 07:15 05/11/24 02:17 Room Air 05/10/24 23:20 Room Air Diagnostic Findings [place], [place] [phone] CT Scan Report Patient: LAMONT MEDINA Admit Date: 05/10/24 MR#: [id number] Address1: [address] [place] [address] Acct ID:[id number] Address2: Date: 1965 [facility] Zip: [place] [address] Age: 59 Location: ED Sex: F Room/Bed: Att Phy: Diagnosis: LOWER BACK PAIN, VOMITING, NAUSEA, DIZZINESS Pebbles Phy: PCP,NO Service Date: 05/10/24 [facility] Phy: Interpreting Phy: Dirk Neville MDAdmit Phy: Ordering Phy: Alesia Lopez MD cc: ~ CT SCAN OF THE ABDOMEN AND PELVIS WITH IV CONTRAST CLINICAL HISTORY: Right-sided low back pain. Right flank pain. COMPARISON STUDY: Abdominal CT dated 10/12/2019. TECHNIQUE: Following the IV administration of 93 cc of Optiray 320, CT scan of the abdomen and pelvis is performed from the lung bases to the proximal femora. Images are reviewed in the axial, sagittal, and coronal planes. IV contrast was administered without complication. A dose lowering technique was utilized adhering to the principles of ALARA. CT DOSE: 420.88 mGy.cm FINDINGS: Lung bases: The heart is normal in size and without pericardial effusion. The lung bases are clear. Liver: The contrast-enhanced liver is top normal in size and demonstrates diffusely diminished attenuation indicating severe steatosis. There is no in trahepatic biliary ductal dilatation. The hepatic veins and portal veins are patent. Gallbladder: Unremarkable. Spleen: Normal in size and attenuation. Pancreas: Unremarkable. Adrenal glands: Unremarkable. Kidneys: The contrast enhanced kidneys are normal in size and without hydronephrosis. The kidneys enhance symmetrically. Abdominal vasculature: The abdominal aorta is normal in course and caliber noting moderate advanced atherosclerotic calcification. There is ectasia of the superior mesenteric artery which measures up to 1.0 cm in diameter. 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 The vessel remains patent. Bowel: There is moderate colonic diverticulosis without CT evidence of acute diverticulitis. No bowel obstruction is seen. The appendix is well-visualized and normal. Peritoneum: There is no intraperitoneal free air or abdominal ascites. There is a fat-containing umbilical hernia. Lymphadenopathy: None. Pelvic viscera: The bladder, uterus, and adnexa are normal as visualized. Skeletal structures: The skeletal structures are osteopenic. There is a mild chronic superior endplate compression deformity of T12. There are acute appe aring superior end plate compression fractures of T10 and L1. There is mild loss of height at both levels and paravertebral edema. No significant retropulsion of fragments is seen. There is not a moderately sacral spondylosis. No lytic or blastic lesions are seen. IMPRESSION: 1. There are acute appearing superior endplate compression fractures of T10 and L1 with mild loss of height at both levels and paravertebral edema. No significant retropulsion of fragments is seen. 2. No acute infectious or inflammatory findings are identified in the abdomen or pelvis. 3. 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 This is age indeterminant and may be chronic. The vessel remains patent. 4. Severe hepatic steatosis. 5. Colonic diverticulosis without CT evidence of acute diverticulitis. 6. Additional findings as above. ACT 112: Negative or not required by law. Electronically signed by: Dirk Neville M.D. 05/10/2024 12:18 PM Dictated: 05/10/24 1207 Transcribed: 05/10/24 1207 [place], [place] [phone] CT Scan Report Patient: LAMONT MEDINA Admit Date: 05/10/24 MR#: [id number] Address1: [address] [place] [address] Acct ID:[id number] Address2: Date: 1965 [facility] Zip: [place] [address] Age: 59 Location: Sex: F Room/Bed: [facility] Att Phy: Dylan Mejias MD Diagnosis: BACK PAIN Pebbles Phy: PCP,NO Service Date: 05/11/24 Fam Phy: Interpreting Phy: Alek WebbAdmabhi Phy: Ken Beckman MD Ordering Phy: Melecio Rdz D.O. cc: ~ CT thoracic spine wo con HISTORY: A 59 years-old Female fracture. Acute mid back pain with possible fracture. COMPARISON: CT abdomen and pelvis 05/10/2024, thoracic spine radiographs 03/11/2015. TECHNIQUE: Multiple axial CT images of the thoracic spine were obtained without IV contrast. A dose lowering technique was used consistent with the principals of ALARA. FINDINGS: Atherosclerosis of the aorta. Mild cardiomegaly. Trace pleural effusions with mild dependent bibasilar atelectasis. No pneumothorax. Mild bronchial wall thickening with areas of bibasilar mucous plugging. Mild intralobular septal thickening. Hepatic steatosis. Small hiatal hernia. Mild chronic T4, T5 and T6 compression deformities are unchanged from 2015. Acute-appearing 20% superior endplate compression deformity at T11 without retropulsion or posterior element involvement. Acute 30% superior endplate compression deformity at L2 without retropulsion or posterior element involvement. Mild paravertebral edema. Transitional lumbosacral anatomy. Chronic-appearing 30% superior endplate compression deformity at L1. Mild multilevel intervertebral disc space narrowing, spondylitic spurring and facet arthrosis. There is at least mild bilateral foraminal narrowing at T10-T11 and T11-T12, which appears to be on a degenerative basis. IMPRESSION: 1. Acute T11 and L2 compression deformities with mild paravertebral edema. No retropulsion or posterior element involvement. 2. Chronic T4-T6 and L1 compression deformities. 3. Transitional lumbosacral anatomy. 4. Mild degenerative changes without significant central canal or foraminal narrowing identified. ACT 112: Negative or not required by law. The above report was generated using voice recognition software. It may contain grammatical, syntax or spelling errors. Dictated: 05/11/2024 8:43 AM Transcribed: 05/11/2024 9:29 AM [place] [id number] [email or web address] Electronically signed by: Alek Webb M.D. 05/11/2024 2:53 PM Dictated: 05/11/24 0843 Transcribed: 05/11/24 0929
--- NOTE | 2024-05-11 10:22 | Gastroenterology Progress Note ---
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 Maintain NPO status for EGD this AM. We appreciate assistance in the management of any serological abnormality and corrections to include: hemoglobin >7, INR <2, platelets >50,000, potassium levels >3.5 but <5.3, and sodium levels within 5 points of the reference range prior to endoscopic evaluation. Trend H&H. Monitor and document GI output. Continue PPI. Stop NSAIDs. Recommend ETOH cessation. Admission and Anticipated Discharge Date Admission Date: May 10, 2024 Supervising Physician Co-Signing Physician Notes I examined the patient and reviewed patient's chart , laboratory data and imaging studies. I agree with with assessment and plan of care as suggested by advanced practice provider Subjective Pt was seen and evaluated, chart reviewed. Reports ongoing back pain. Is NPO for EGD this AM. No further nausea/vomiting. Did have report of dark stools prior to admission. Review of Systems Review of Systems: All other findings negative except as noted in HPI. Physical Exam Constitutional: WD/WN, vitals as above Respiratory: normal respiratory effort, lungs clear to auscultation Cardiovascular: RRR, no murmur, no edema Gastrointestinal (Abdomen): normal bowel sounds, soft, nontender, no hepatosplenomegaly Skin: no rashes, warm and dry Results & Data Results & Data Vital Signs (Past 12 Hours) Vital Signs Temp Pulse Pulse Resp BP BP Pulse Ox 05/11/24 08:30 36.9 C 72 18 110/72 95 05/11/24 07:45 05/11/24 07:15 60 05/11/24 02:17 37.0 C 68 18 104/69 96 05/10/24 23:20 36.8 C 69 20 101/65 93 O2 Del Method 05/11/24 08:30 Room Air 05/11/24 07:45 Room Air 05/11/24 07:15 05/11/24 02:17 Room Air 05/10/24 23:20 Room Air Laboratory Results 05/11/24 05/10/24 05/10/24 Range/Units 05:53 Unknown 23:00 WBC 4.76 L (4.8-10.8) K/ul RBC 3.81 L (4.20-5.40) M/uL Hgb 11.9 L (12.0-16.0) g/dl Hct 36.1 L (37.0-47.0) % MCV 94.8 D (80.0-100.0) fL MCH 31.2 (25.0-34.0) pg MCHC 33.0 (32.0-36.0) g/dL RDW Std Deviation 56.1 H (36.4-46.3) fL RDW Coeff of Wilder 19.3 H (11.5-14.5) % Plt Count 67 L (130-400) K/uL MPV 11.3 (9.4-12.4) fL Immature Gran % (Auto) % Neut % (Auto) % Lymph % (Auto) % [place] % (Auto) % Eos % (Auto) % Baso % (Auto) % Neut # (Auto) (1.40-6.50) K/uL Lymph # (Auto) (1.20-3.40) K/uL [place] # (Auto) (0.11-0.59) K/uL Eos # (Auto) (0.00-0.50) K/uL Baso # (Auto) (0.00-0.20) K/uL Immature Gran # (Auto) (0.01-0.20) K/uL Absolute Nucleated RBC (0.00-0.12) K/uL Nucleated RBC % (auto) % RBC Morphology PT (9.0-12.0) Seconds INR (0.9-1.1) Sodium 137 (136-145) mmol/L Potassium 4.1 D (3.5-5.1) mmol/L Chloride 107 (98-107) mmol/L Carbon Dioxide 25 (21-32) mmol/L Anion Gap 5 (3-11) BUN 8 (6-23) mg/dl Creatinine 0.53 L (0.6-1.2) mg/dl Est Cr Clr Drug Dosing 106.6 Est GFR ( Amer) 120.5 ml/min Est GFR (Non-Af Amer) 103.9 ml/min BUN/Creatinine Ratio 15.1 (10-20) Glucose 84 (70-99(Fasting)) mg/dl Lactate (0.4-2.0) mmol/L Calcium 8.3 L (8.6-10.3) mg/dl Magnesium 2.0 (1.7-2.4) mg/dl Total Bilirubin 0.9 D (0.2-1.0) mg/dl AST 33 (13-39) U/L ALT 26 (7-52) U/L Alkaline Phosphatase 139 H (34-104) U/L Total Protein 5.7 L (6.0-8.3) gm/dl Albumin 3.6 (3.4-5.0) gm/dl Globulin 2.1 L (2.5-4.0) gm/dl Albumin/Globulin Ratio 1.7 (0.9-2) Triglycerides 31 (0-150) mg/dl Cholesterol 189 (0-200) mg/dl LDL Cholesterol, Calc 53 mg/dl VLDL Cholesterol, Calc 6 (0-30) mg/dl HDL Cholesterol 130 mg/dl Cholesterol/HDL Ratio 1.5 (0-5) Lipase (11-82) U/L Urine Color Urine Appearance (Clear) Urine pH (4.5-7.5) Ur Specific [place] (1.000-1.030) Urine Protein (Negative) Urine Glucose (UA) (Negative) Urine Ketones (Negative) Urine Blood (Negative) Urine Nitrite (Negative) Urine Bilirubin (Negative) Urine Urobilinogen (Negative) Ur Leukocyte Esterase (Negative) Urine WBC (Auto) (0-5) /hpf Urine RBC (Auto) (0-2) /hpf U Hyaline Cast (Auto) (0-2) /lpf U Epithel Cells (Auto) (0-2) /hpf Urine Bacteria (Auto) (None Seen) Urine Opiates Screen Pos H (Neg) U Codeine Confrm GC/MS Pending Ur Morphine (GC/MS) Pending Ur Hydrocodone (GC/MS) Pending Ur Norhydrocodone Pending Ur Noroxycodone Pending Urine Oxycodone (GC/MS) Pending U Oxymorphone GC/MS Pending Ur Methadone, Qual Neg (Neg) Ur Hydromorphone (GC/MS) Pending Urine Fentanyl Screen Neg (Neg) Urine Barbiturates Neg (Neg) Ur Phencyclidine (PCP) Neg (Neg) U Amphetamin/Meth Scrn Neg (Neg) MDMA (Ecstasy) Screen Neg (Neg) U Benzodiazepines Scrn Neg (Neg) Ur Cocaine Metabolite Neg (Neg) U Marijuana (THC) Screen Neg (Neg) Drug Screen Comment Pending Ethyl Alcohol mg/dL (<10.0) mg/dl Adenovirus (PCR) (NotDetected) B. pertussis DNA (PCR) (NotDetected) B.parapertussis DNA PCR (NotDetected) C. pneumoniae DNA (PCR) (NotDetected) Coronavirus OC43 (PCR) (NotDetected) Coronavirus HKU1 (PCR) (NotDetected) Coronavirus 229E (PCR) (NotDetected) SARS-CoV-2 (PCR) (NotDetected) Coronavirus NL63 (PCR) (NotDetected) Human Metapneumovir PCR (NotDetected) Influenza Type A (PCR) (NotDetected) Influenza Type B (PCR) (NotDetected) M. pneumoniae (PCR) (NotDetected) Parainfluenza 1 (PCR) (NotDetected) Parainfluenza 2 (PCR) (NotDetected) Parainfluenza 3 (PCR) (NotDetected) Parainfluenza 4 (PCR) (NotDetected) RSV (PCR) (NotDetected) Entero/Rhino (PCR) (NotDetected) Blood Type Blood Type Recheck A Positive Antibody Screen Crossmatch 05/10/24 05/10/24 05/10/24 Range/Units 20:29 14:49 13:25 WBC (4.8-10.8) K/ul RBC (4.20-5.40) M/uL Hgb 12.1 (12.0-16.0) g/dl Hct 34.3 L (37.0-47.0) % MCV (80.0-100.0) fL MCH (25.0-34.0) pg MCHC (32.0-36.0) g/dL RDW Std Deviation (36.4-46.3) fL RDW Coeff of Wilder (11.5-14.5) % Plt Count (130-400) K/uL MPV (9.4-12.4) fL Immature Gran % (Auto) % Neut % (Auto) % Lymph % (Auto) % Atlantic % (Auto) % Eos % (Auto) % Baso % (Auto) % Neut # (Auto) (1.40-6.50) K/uL Lymph # (Auto) (1.20-3.40) K/uL [place] # (Auto) (0.11-0.59) K/uL Eos # (Auto) (0.00-0.50) K/uL Baso # (Auto) (0.00-0.20) K/uL Immature Gran # (Auto) (0.01-0.20) K/uL Absolute Nucleated RBC (0.00-0.12) K/uL Nucleated RBC % (auto) % RBC Morphology PT (9.0-12.0) Seconds INR (0.9-1.1) Sodium 133 L (136-145) mmol/L Potassium 3.0 L (3.5-5.1) mmol/L Chloride 99 (98-107) mmol/L Carbon Dioxide 27 (21-32) mmol/L Anion Gap 7 (3-11) BUN 9 (6-23) mg/dl Creatinine 0.61 (0.6-1.2) mg/dl Est Cr Clr Drug Dosing 89.8 Est GFR ( Amer) 115.0 ml/min Est GFR (Non-Af Amer) 99.2 ml/min BUN/Creatinine Ratio 14.8 (10-20) Glucose 100 H (70-99(Fasting)) mg/dl Lactate (0.4-2.0) mmol/L Calcium 8.1 L (8.6-10.3) mg/dl Magnesium 2.3 (1.7-2.4) mg/dl Total Bilirubin (0.2-1.0) mg/dl AST (13-39) U/L ALT (7-52) U/L Alkaline Phosphatase (34-104) U/L Total Protein (6.0-8.3) gm/dl Albumin (3.4-5.0) gm/dl Globulin (2.5-4.0) gm/dl Albumin/Globulin Ratio (0.9-2) Triglycerides (0-150) mg/dl Cholesterol (0-200) mg/dl LDL Cholesterol, Calc mg/dl VLDL Cholesterol, Calc (0-30) mg/dl HDL Cholesterol mg/dl Cholesterol/HDL Ratio (0-5) Lipase (11-82) U/L Urine Color Yellow Urine Appearance Clear (Clear) Urine pH 8.0 H (4.5-7.5) Ur Specific [place] > 1.045 H (1.000-1.030) Urine Protein 1+ H (Negative) Urine Glucose (UA) Negative (Negative) Urine Ketones 1+ H (Negative) Urine Blood Negative (Negative) Urine Nitrite Negative (Negative) Urine Bilirubin Negative (Negative) Urine Urobilinogen Negative (Negative) Ur Leukocyte Esterase Trace H (Negative) Urine WBC (Auto) 0-5 (0-5) /hpf Urine RBC (Auto) 0-2 (0-2) /hpf U Hyaline Cast (Auto) 0-2 (0-2) /lpf U Epithel Cells (Auto) 0-2 (0-2) /hpf Urine Bacteria (Auto) 1+ H (None Seen) Urine Opiates Screen (Neg) U Codeine Confrm GC/MS Ur Morphine (GC/MS) Ur Hydrocodone (GC/MS) Ur Norhydrocodone Ur Noroxycodone Urine Oxycodone (GC/MS) U Oxymorphone GC/MS Ur Methadone, Qual (Neg) Ur Hydromorphone (GC/MS) Urine Fentanyl Screen (Neg) Urine Barbiturates (Neg) Ur Phencyclidine (PCP) (Neg) U Amphetamin/Meth Scrn (Neg) MDMA (Ecstasy) Screen (Neg) U Benzodiazepines Scrn (Neg) Ur Cocaine Metabolite (Neg) U Marijuana (THC) Screen (Neg) Drug Screen Comment Ethyl Alcohol mg/dL < 10.0 (<10.0) mg/dl Adenovirus (PCR) Not Detected (NotDetected) B. pertussis DNA (PCR) Not Detected (NotDetected) B.parapertussis DNA PCR Not Detected (NotDetected) C. pneumoniae DNA (PCR) Not Detected (NotDetected) Coronavirus OC43 (PCR) Not Detected (NotDetected) Coronavirus HKU1 (PCR) Not Detected (NotDetected) Coronavirus 229E (PCR) Not Detected (NotDetected) SARS-CoV-2 (PCR) Not Detected (NotDetected) Coronavirus NL63 (PCR) Not Detected (NotDetected) Human Metapneumovir PCR Not Detected (NotDetected) Influenza Type A (PCR) Not Detected (NotDetected) Influenza Type B (PCR) Not Detected (NotDetected) M. pneumoniae (PCR) Not Detected (NotDetected) Parainfluenza 1 (PCR) Not Detected (NotDetected) Parainfluenza 2 (PCR) Not Detected (NotDetected) Parainfluenza 3 (PCR) Not Detected (NotDetected) Parainfluenza 4 (PCR) Not Detected (NotDetected) RSV (PCR) Not Detected (NotDetected) Entero/Rhino (PCR) Not Detected (NotDetected) Blood Type A Positive Blood Type Recheck Antibody Screen NEGATIVE Crossmatch See Detail 05/10/24 Range/Units 10:05 WBC 5.18 (4.8-10.8) K/ul RBC 4.63 (4.20-5.40) M/uL Hgb 14.5 (12.0-16.0) g/dl Hct 41.0 (37.0-47.0) % MCV 88.6 (80.0-100.0) fL MCH 31.3 (25.0-34.0) pg MCHC 35.4 (32.0-36.0) g/dL RDW Std Deviation 50.4 H (36.4-46.3) fL RDW Coeff of Wilder 18.1 H (11.5-14.5) % Plt Count 87 L (130-400) K/uL MPV 10.9 (9.4-12.4) fL Immature Gran % (Auto) 0.4 % Neut % (Auto) 73.9 % Lymph % (Auto) 17.2 % Atlantic % (Auto) 7.7 % Eos % (Auto) 0.0 % Baso % (Auto) 0.8 % Neut # (Auto) 3.83 (1.40-6.50) K/uL Lymph # (Auto) 0.89 L (1.20-3.40) K/uL Atlantic # (Auto) 0.40 (0.11-0.59) K/uL Eos # (Auto) 0.00 (0.00-0.50) K/uL Baso # (Auto) 0.04 (0.00-0.20) K/uL Immature Gran # (Auto) 0.02 (0.01-0.20) K/uL Absolute Nucleated RBC 0.03 (0.00-0.12) K/uL Nucleated RBC % (auto) 0.6 % RBC Morphology Unremarkable PT 10.8 (9.0-12.0) Seconds INR 1.0 (0.9-1.1) Sodium 135 L (136-145) mmol/L Potassium 2.5 L* (3.5-5.1) mmol/L Chloride 91 L (98-107) mmol/L Carbon Dioxide 27 (21-32) mmol/L Anion Gap 17 H (3-11) BUN 10 (6-23) mg/dl Creatinine 0.63 (0.6-1.2) mg/dl Est Cr Clr Drug Dosing Not Reportable Est GFR ( Amer) 113.8 ml/min Est GFR (Non-Af Amer) 98.2 ml/min BUN/Creatinine Ratio 15.9 (10-20) Glucose 92 (70-99(Fasting)) mg/dl Lactate 1.7 (0.4-2.0) mmol/L Calcium 9.4 (8.6-10.3) mg/dl Magnesium 1.1 L (1.7-2.4) mg/dl Total Bilirubin 2.1 H (0.2-1.0) mg/dl AST 79 H (13-39) U/L ALT 39 (7-52) U/L Alkaline Phosphatase 183 H (34-104) U/L Total Protein 7.1 (6.0-8.3) gm/dl Albumin 4.4 (3.4-5.0) gm/dl Globulin 2.7 (2.5-4.0) gm/dl Albumin/Globulin Ratio 1.6 (0.9-2) Triglycerides (0-150) mg/dl Cholesterol (0-200) mg/dl LDL Cholesterol, Calc mg/dl VLDL Cholesterol, Calc (0-30) mg/dl HDL Cholesterol mg/dl Cholesterol/HDL Ratio (0-5) Lipase 15 (11-82) U/L Urine Color Urine Appearance (Clear) Urine pH (4.5-7.5) Ur Specific [place] (1.000-1.030) Urine Protein (Negative) Urine Glucose (UA) (Negative) Urine Ketones (Negative) Urine Blood (Negative) Urine Nitrite (Negative) Urine Bilirubin (Negative) Urine Urobilinogen (Negative) Ur Leukocyte Esterase (Negative) Urine WBC (Auto) (0-5) /hpf Urine RBC (Auto) (0-2) /hpf U Hyaline Cast (Auto) (0-2) /lpf U Epithel Cells (Auto) (0-2) /hpf Urine Bacteria (Auto) (None Seen) Urine Opiates Screen (Neg) U Codeine Confrm GC/MS Ur Morphine (GC/MS) Ur Hydrocodone (GC/MS) Ur Norhydrocodone Ur Noroxycodone Urine Oxycodone (GC/MS) U Oxymorphone GC/MS Ur Methadone, Qual (Neg) Ur Hydromorphone (GC/MS) Urine Fentanyl Screen (Neg) Urine Barbiturates (Neg) Ur Phencyclidine (PCP) (Neg) U Amphetamin/Meth Scrn (Neg) MDMA (Ecstasy) Screen (Neg) U Benzodiazepines Scrn (Neg) Ur Cocaine Metabolite (Neg) U Marijuana (THC) Screen (Neg) Drug Screen Comment Ethyl Alcohol mg/dL (<10.0) mg/dl Adenovirus (PCR) (NotDetected) B. pertussis DNA (PCR) (NotDetected) B.parapertussis DNA PCR (NotDetected) C. pneumoniae DNA (PCR) (NotDetected) Coronavirus OC43 (PCR) (NotDetected) Coronavirus HKU1 (PCR) (NotDetected) Coronavirus 229E (PCR) (NotDetected) SARS-CoV-2 (PCR) (NotDetected) Coronavirus NL63 (PCR) (NotDetected) Human Metapneumovir PCR (NotDetected) Influenza Type A (PCR) (NotDetected) Influenza Type B (PCR) (NotDetected) M. pneumoniae (PCR) (NotDetected) Parainfluenza 1 (PCR) (NotDetected) Parainfluenza 2 (PCR) (NotDetected) Parainfluenza 3 (PCR) (NotDetected) Parainfluenza 4 (PCR) (NotDetected) RSV (PCR) (NotDetected) Entero/Rhino (PCR) (NotDetected) Blood Type Blood Type Recheck Antibody Screen Crossmatch PG Care Time/CCT Total # of Minutes Spent Total Time Spent with Patient: Total time spent is greater than 50% in coordination of care (as documented) at patient's floor/unit and/or counseling patient: Coding Level of Care Code None Diagnoses Melena K92.1
--- NOTE | 2024-05-11 12:50 | Hospitalist Progress Note ---
Date of Service May 11, 2024 Assessment & Plan (1) Acute low back pain: (2) Compression fracture of lumbar vertebra: Plan: Patient is 59 year old female with PMH depression, anxiety, alcohol use, tobacco use presented to ER with c/o back pain x 1 month. Denies fall or trauma. CT abd/pelvis: There are acute appearing superior endplate compression fractures of T10 and L1 with mild loss of height at both levels and paravertebral edema. No significant retropulsion of fragments is seen Pain control with oxycodone, morphine prn Heat to area as needed [facility] evaluated the patient on 05/11; recommend conservative care with TLSO brace to be worn when walking and standing. It may be removed in a seated position or when lying down. PT OT evaluation (3) Abdominal pain: (4) Melena: (5) Nausea & vomiting: Plan: Possible upper GI bleed Reported nausea for past 2 weeks and vomiting 2-3x day for 1 week and 1 episode diarrhea daily. Noted black stool. Reported hematemesis one week ago. CT abd/pelvis: No acute infectious or inflammatory findings are identified in the abdomen or pelvis. Colonic diverticulosis without CT evidence of acute diverticulitis. 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 This is age indeterminant and may be chronic. The vessel remains patent. Severe hepatic steatosis. CT abd/pelvis from 10/12/2019 reviewed and was without mention of mesenteric artery findings Seen by vascular surgery on 05/11recommend reevaluation in 1 month with mesenteric ultrasound as outpatient (9) Thrombocytopenia: Plan: Possible ETOH related Monitor CBC (10) Elevated LFTs: Plan: Hepatitic Steatosis CT abdomen pelvis: +hepatic steatosis Monitor LFT's likely related with alcohol use disorder (11) Alcohol use: Plan: Reported prior moderate-heavy alcohol use, but states recently using once week but without clarification on amount. Reports last drink 3-4 days ago Monitor for ETOH withdrawal Continue thiamine, folic acid (12) Tobacco use: Plan: Nicotine patch DVT Prophylaxis SCDs Admit med tele Full Code as per discussion with pt Does not follow regularly with PCP secondary to lack of insurance. Time spent evaluating patient, direct bedside care, chart review, placing orders, interpretation of diagnostic studies, discussion with consultants, patient, and family members, as well as other required patient management activities is 50 minutes Please note the above document was generated using voice recognition software. It may contain grammatical, syntax or spelling errors. Any formal questions or concerns about the content, text or information contained within the body of this dictation should be directly addressed to the provider for clarification Admission and Anticipated Discharge Date Admission Date: May 10, 2024 Subjective Seen and examined at bedside She is comfortable; not in distress Reports back pain. No significant events overnight Review of Systems Review of Systems: All systems reviewed & are unremarkable except as noted in Subjective Physical Exam Physical Exam: Constitutional: WD/WN, vitals as above, NAD, sitting up in bed, pleasant, conversing easily Respiratory: normal respiratory effort, lungs clear to auscultation, no wheeze, rales, rhonchi. Normal insp/exp effort, no accessory muscle use Cardiovascular: RRR, no murmur, no edema Vessels: no JVD or carotid bruit Chest: normal inspection of chest Abdomen: normal bowel sounds, soft, nontender, no hepatosplenomegaly Musculoskeletal: Tenderness in lower back Skin: no rashes, warm and dry normal turgor Neurologic: PERRL, EOMI, accommodation nl, no face palsy, no dysarthria CN's II- XI intact bilaterally and moves all extremities Psychiatric: A+Ox3, euthymic affect Results & Data Results & Data Vital Signs (Past 12 Hours) Vital Signs Temp Pulse Pulse Resp BP Pulse Ox O2 Del Method 05/11/24 11:13 37.2 C 62 20 109/62 95 Room Air 05/11/24 08:30 36.9 C 72 18 110/72 95 Room Air 05/11/24 07:45 Room Air 05/11/24 07:15 60 05/11/24 02:17 37.0 C 68 18 104/69 96 Room Air
[2024-05-11] MEDS: GABAPENTIN 400 MG CAP PO SCH (13:31)
--- NOTE | 2024-05-11 14:54 | CT Scan Report ---
CT thoracic spine wo con HISTORY: A 59 years-old Female fracture. Acute mid back pain with possible fracture. COMPARISON: CT abdomen and pelvis 05/10/2024, thoracic spine radiographs 03/11/2015. TECHNIQUE: Multiple axial CT images of the thoracic spine were obtained without IV contrast. A dose l owering technique was used consistent with the principals of [employer]. FINDINGS: Atherosclerosis of the aorta. Mild cardiomegaly. Trace pleural effusions with mild dependent bibasila r atelectasis. No pneumothorax. Mild bronchial wall thickening with areas of bibasilar mucous pluggin g. Mild intralobular septal thickening. Hepatic steatosis. Small hiatal hernia. Mild chronic T4, T5 and T6 compression deformities are unchanged from 2015. Acute-appearing 20% super ior endplate compression deformity at T11 without retropulsion or posterior element involvement. Acut e 30% superior endplate compression deformity at L2 without retropulsion or posterior element involve ment. Mild paravertebral edema. Transitional lumbosacral anatomy. Chronic-appearing 30% superior endp late compression deformity at L1. Mild multilevel intervertebral disc space narrowing, spondylitic sp urring and facet arthrosis. There is at least mild bilateral foraminal narrowing at T10-T11 and T11-T 12, which appears to be on a degenerative basis. IMPRESSION: 1. Acute T11 and L2 compression deformities with mild paravertebral edema. No retropulsion or posteri or element involvement. 2. Chronic T4-T6 and L1 compression deformities. 3. Transitional lumbosacral anatomy. 4. Mild degenerative changes without significant central canal or foraminal narrowing identified. ACT 112: Negative or not required by law. The above report was generated using voice recognition software. It may contain grammatical, syntax o r spelling errors. Dictated: 05/11/2024 8:43 AM Transcribed: 05/11/2024 9:29 AM [place] [id number] [email or web address] Electronically signed by: Alek Webb M.D. 05/11/2024 2:53 PM
[2024-05-11] MEDS: SODIUM CHLORIDE 0.9% 500 ML IV SCH (14:57)
[2024-05-11] MEDS ORDERED: ePHEDrine sulfate 50 MG/ML AMP IV PRN (15:11)
[2024-05-11] MEDS ORDERED: ATROPINE SULFATE 0.1 MG/ML 10ML SYR IV PRN (15:11)
--- NOTE | 2024-05-11 15:46 | GI REPORT ---
[facility] Patient: LAMONT MEDINA : 1965 Sex at : Female Age: 59 Years Procedure: Upper GI endoscopy Date: 05/11/2024 Attending Physician: Oswald Wilburn MD Referring MD: Referred Self Indications: - Melena Medications: - Monitored Anesthesia Care Complications: - No immediate complications. Estimated Blood Loss: - Estimated blood loss: None. Procedure: - The egd scope was introduced through the mouth and advanced to the third part of the duodenum. - The upper GI endoscopy was accomplished with ease. - The patient tolerated the procedure well. Findings: - Moderate esophagitis with no bleeding was found in the lower third of the esophagus. Biopsies were taken with a cold forceps for histology. The distal esophageal mucosa appeared red exudates and scar tissue. There was no active bleeding and no ulcerations. There was no evidence of esophageal varices. - The entire examined stomach was normal. There was no evidence of gastric varices or portal hypertensive. Fatigue. - The examined duodenum was normal. Impression: - Moderate reflux esophagitis with no bleeding. Biopsied. - The distal esophageal mucosa appeared red exudates and scar tissue. There was no active bleeding and no ulcerations. - Normal stomach. - Normal examined duodenum. Recommendation: - Await pathology results. - Return to referring physician as previously scheduled. - Follow-up with GI office for outpatient colonoscopy. - Continue pantoprazole 40 mg once a day. Procedure Code(s): - 43639, Esophagogastroduodenoscopy, flexible, transoral; with biopsy, single or multiple Diagnosis Code(s): - K21.00, Gastro-esophageal reflux disease with esophagitis, without bleeding CPT(R) - 2023 copyright [employer]. All Rights Reserved. The CPT codes, CCI edits and ICD codes generated are intended as suggestions and were generated based on input data. These codes are preliminary and upon mud jack nozzleman review may be revised to meet current compliance and payer requirements. The provider is responsible for the final determination of appropriate codes, and modifiers. Oswald Wilburn M.D., MD This document has been electronically signed. Note Initiated:05/11/2024 Note Completed:05/11/2024 3:45 PM [id number]
[2024-05-11] MEDS: LIDOCAINE 2% 2 ML VIAL/AMP(20MG/ML) INFIL ONE (16:43)
[2024-05-11] MEDS: PROPOFOL IV EMULSION 10 MG/ML 20 ML VIAL IV ONE (16:43)
--- NOTE | 2024-05-11 16:48 | Electrocardiogram Report ---
Test Reason : Blood Pressure : */* mmHG Vent. Rate : 66 BPM Atrial Rate : 66 BPM P-R Int : 152 ms QRS Dur : 74 ms QT Int : 390 ms P-R-T Axes : 73 62 58 degrees QTcB Int : 408 ms Normal sinus rhythm When compared with ECG of 10-May-2024 12:06, No significant change was found Confirmed by Monty Willoughby ([id number]) on 05/11/2024 4:47:43 PM Referred By: REFERRED SELF Confirmed By: Monty Willoughby
--- NOTE | 2024-05-11 16:53 | Anesthesiology Progress Note ---
Date of Service May 11, 2024 Anesthesia Post Procedure Vital Signs Vital Signs: Temp Pulse Pulse Resp BP BP Pulse Ox 05/11/24 16:13 58 L 16 133/63 98 05/11/24 15:58 59 L 16 140/84 98 05/11/24 15:43 36 C L 82 14 148/59 H 97 05/11/24 14:47 36.6 C 76 18 136/78 96 05/11/24 13:00 70 05/11/24 11:13 37.2 C 62 20 109/62 95 05/11/24 08:30 36.9 C 72 18 110/72 95 05/11/24 07:45 05/11/24 07:15 60 05/11/24 02:17 37.0 C 68 18 104/69 96 05/10/24 23:20 36.8 C 69 20 101/65 93 05/10/24 21:52 74 05/10/24 20:00 36.9 C 84 20 97/59 L 93 05/10/24 17:30 73 05/10/24 17:26 05/10/24 16:56 37.0 C 80 16 114/70 95 O2 Del Method 05/11/24 16:13 Room Air 05/11/24 15:58 Room Air 05/11/24 15:43 Room Air 05/11/24 14:47 Room Air 05/11/24 13:00 05/11/24 11:13 Room Air 05/11/24 08:30 Room Air 05/11/24 07:45 Room Air 05/11/24 07:15 05/11/24 02:17 Room Air 05/10/24 23:20 Room Air 05/10/24 21:52 05/10/24 20:00 Room Air 05/10/24 17:30 05/10/24 17:26 Room Air 05/10/24 16:56 Room Air Pain Intensity Right Lower Back: Pain Intensity: 10 Transfer of Care Handoff Completed per policy Notes Mental Status: alert / awake / arousable and participated in evaluation Patient Amnestic to Procedure: Yes Nausea / Vomiting: adequately controlled Pain: adequately controlled Airway Patency, RR, SpO2: stable & adequate BP & HR: stable & adequate Hydration State: stable & adequate Anesthetic Complications: no major complications apparent and Pt Satisfied with anesthetic care
[2024-05-12 04:00] VITALS: RESP 16
[2024-05-12] MEDS: PANTOprazole 40 MG TAB PO SCH (09:03)
[2024-05-12 09:17] LABS: Basophils # (auto) 0.04 K/uL (0.00-0.20); Basophils % (auto) 0.9 %; Eosinophils # (auto) 0.07 K/uL (0.00-0.50); Eosinophils % (auto) 1.6 %; Hematocrit (blood only) 36.6 % (37.0-47.0); Hemoglobin 12.5 g/dl (12.0-16.0); Immature Granulocytes # (auto) 0.03 K/uL (0.01-0.20); Immature Granulocytes % (auto) 0.7 %; Lymphocytes # (auto) 2.05 K/uL (1.20-3.40); Mean Corpuscular Hemoglobin 32.3 pg (25.0-34.0); Mean Corpuscular Hgb Conc 34.2 g/dL (32.0-36.0); Mean Corpuscular Volume 94.6 fL (80.0-100.0); Mean Platelet Volume 11.1 fL (9.4-12.4); Monocytes # (auto) 0.56 K/uL (0.11-0.59); Monocytes % (auto) 12.6 %; Neutrophils # (auto) 1.71 K/uL (1.40-6.50); Neutrophils % (auto) 38.2 %; Nucleated RBC # (auto) 0.04 K/uL (0.00-0.12); Nucleated RBC % (auto) 0.9 %; Platelet Count 70 K/uL (130-400); RDW Coefficient of Variation 19.5 % (11.5-14.5); RDW Standard Deviation 64.3 fL (36.4-46.3); Red Blood Count 3.87 M/uL (4.20-5.40); White Blood Count 4.46 K/ul (4.8-10.8)
[2024-05-12 09:28] LABS: Calcium 8.5 mg/dl (8.6-10.3); Est GFR (African American) 122.8 ml/min; Est GFR (Non-African American) 105.9 ml/min
[2024-05-12 12:28] VITALS: O2SAT 97
--- NOTE | 2024-05-12 12:29 | Discharge Summary ---
Date of Service May 12, 2024 Admission HPI Per Admitting Provider Patient is 59 year old female with PMH depression, anxiety, alcohol use, tobacco use presented to ER with c/o back pain x 1 month. Patient reports had sudden onset of mid and lower back pain 1 month ago. Denies any injury, trauma, or fall prior to back pain onset. She reports mid and low back pain is aggravated with any movement. She states pain has progressed and has been worse over the past 2 weeks. She admits was taking 8 tablets OTC ibuprofen daily. She states over the past week has had nausea and vomiting so has not been taking ibuprofen often. She did take 800 mg ibuprofen this morning. Denies extremity paresthesias or weakness. Denies heartburn or indigestion. Reported nausea for past 2 weeks and vomiting 2-3x day for 1 week and 1 episode diarrhea daily. Today noted black stool. Reported hematemesis one week ago. She complains of some right sided abdominal tenderness. States smokes 1/2ppd. Does not clarify how much she drinks but states drinks approximately once a week and states last drink was 3-4 days ago. Denies history alcohol withdrawal or seizures. Denies illicit drug use. Denies fever/chills, diaphoresis, LARKIN, dizziness, vision changes, neck pain, CP, SOB, palpitations, sore throat, otalgia, rhinorrhea, paresthesias, extremity weakness, extremity edema, rashes. Denies history EGD or colonoscopy in past. Denies depression symptoms or suicidal or homicidal ideations. Reports does not have insurance and has deferred all screening exams in past. Admission Exam Per Admitting Provider General: mild distress secondary to back pain, WDWN Head: normocephalic, atraumatic Eyes: conjunctiva non-injected, anicteric ENT: normal inspection external ears, nose, mucous membranes moist Neck: supple, trachea midline, non-tender to palpation Lungs: clear, no respiratory distress, no wheezing/rhonchi/rales CV: RRR, no murmur, no pretibial edema Abd: normal BS, soft, +tenderness to palpation RUQ with guarding Back: no skin discoloration, +tenderness with limited ROM of trunk, +tenderness to palpation entire thoracic and lumbar spine Ext: no cyanosis, no calf tenderness, pedal pushes and pulls intact bilaterally, reported sensation to light touch equal bilateral lower extremities Neuro: A&O x 3, no focal deficits noted Skin: warm, dry Principal Diagnosis Compression fracture of lumbar vertebra Possible upper GI bleed, rule out Discharge Exam Constitutional: WD/WN, vitals as above, NAD, sitting up in bed, pleasant, conversing easily Respiratory: normal respiratory effort, lungs clear to auscultation, no wheeze, rales, rhonchi. Normal insp/exp effort, no accessory muscle use Cardiovascular: RRR, no murmur, no edema Vessels: no JVD or carotid bruit Chest: normal inspection of chest Abdomen: normal bowel sounds, soft, nontender, no hepatosplenomegaly Musculoskeletal: Tenderness in lower back Skin: no rashes, warm and dry normal turgor Neurologic: PERRL, EOMI, accommodation nl, no face palsy, no dysarthria CN's II- XI intact bilaterally and moves all extremities Psychiatric: A+Ox3, euthymic affect Discharge Data Allergies Allergy/AdvReac Type Severity Reaction Status Date / Time No Known Allergies Allergy Unknown Verified 10/13/19 03:34 Consultations 05/10/24 14:27 ED Decision to Admit Stat 05/10/24 16:53 Consult Gastroenterology Routine Consult Orthopedic Surgery Routine 05/11/24 07:00 Consult Vascular Surgery Routine Procedures Performed Operation Date: 05/11/24 16:30 Actual Procedures p EGD Biopsy Cytology - Oswald Wilburn MD Ordered Studies 05/10/24 09:23 CT abd pelvis IV con only Stat 05/11/24 07:47 CT thoracic spine wo con Routine 05/11/24 16:53 US gallbladder Routine Hospital Course (1) Acute low back pain: (2) Compression fracture of lumbar vertebra: Patient is 59 year old female with PMH depression, anxiety, alcohol use, tobacco use presented to ER with c/o back pain x 1 month. Denies fall or trauma. CT abd/pelvis: There are acute appearing superior endplate compression fractures of T10 and L1 with mild loss of height at both levels and paravertebral edema. No significant retropulsion of fragments is seen [facility] evaluated the patient on 05/11; recommend conservative care with TLSO brace to be worn when walking and standing. It may be removed in a seated position or when lying down. Patient discharged on Tylenol and oxycodone; recommended to wear TLSO brace while standing up and walking. (3) Abdominal pain: (4) Melena: (5) Nausea & vomiting: Possible upper GI bleed- ruled out Esophagitis Reported nausea for past 2 weeks and vomiting 2-3x day for 1 week and 1 episode diarrhea daily. Noted black stool. Reported hematemesis one week ago. CT abd/pelvis: No acute infectious or inflammatory findings are identified in the abdomen or pelvis. Colonic diverticulosis without CT evidence of acute diverticulitis. No leukocytosis, normal lipase UA: trace leuk esterase, 1+bacteria [employer] respiratory panel negative Patient underwent endoscopy; no signs or symptoms of bleeding. 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 This is age indeterminant and may be chronic. The vessel remains patent. Severe hepatic steatosis. CT abd/pelvis from 10/12/2019 reviewed and was without mention of mesenteric artery findings Seen by vascular surgery on 05/11recommend reevaluation in 1 month with mesenteric ultrasound as outpatient (9) Thrombocytopenia: Possible ETOH related Monitor CBC (10) Elevated LFTs: Hepatitic Steatosis CT abdomen pelvis: +hepatic steatosis Monitor LFT's likely related with alcohol use disorder (11) Alcohol use: Reported prior moderate-heavy alcohol use, but states recently using once week but without clarification on amount. Reports last drink 3-4 days ago No Signs or symptoms of withdrawal during the hospitalization. (12) Tobacco use: Please note the above document was generated using voice recognition software. It may contain grammatical, syntax or spelling errors. Any formal questions or concerns about the content, text or information contained within the body of this dictation should be directly addressed to the provider for clarification Total Time Total Time Spent Total Time Spent (In Minutes): 45 Discharge Plan Discharge Items Patient Disposition: Home - Self-Care Reason For Visit: BACK PAIN Discharge Diagnosis: Compression fracture of lumbar vertebra Dissection of mesenteric artery Possible upper GI bleed, ruled out Activity: Resume your previous activity Non-emergency contact: Primary Care Provider Call non-emergency contact if: you have any medication questions and your symptoms worsen Follow-up/Referrals: [facility] [Other] Danika Vallejo MD [Outside Practitioners] - (Date & Time 05/15/2024 3:20 PM Provider Danika Vallejo MD Department Family [facility] Please cancel this appointment if you would rather get set up with [facility]) Diet: Regular Addtl Attending Provider Instructions: You were admitted to the hospital due to fractures of the bones of your back. For the pain control, take Tylenol as needed. If the pain gets really severe; take oxycodone. Try to limit the amount of oxycodone that you take. Please use the brace while you were standing up and walking. You can take off the brace while lying down or sitting. One of the artery in your abdomen was found to have dissection. Please obtain mesenteric ultrasound in 1 year to monitor it. Pending Studies at Discharge: No Stand-Alone Forms: My [employer], Smoking Cessation Medications and DC Order Prescriptions: New acetaminophen 325 mg Tablet 650 mg PO Q6H PRN (Reason: pain) Qty: 30 0RF pantoprazole 40 mg Tablet,Delayed Release (Dr/Ec) 40 mg PO QAM Qty: 60 0RF oxycodone 5 mg Tablet 5 mg PO Q6H PRN (Reason: pain) Qty: 10 0RF Discontinued ibuprofen 1 tab PO DIRECTED PRN (Reason: Pain) Discharge Orders: Discharge Order (Routine); Ordered 05/12/24 Ordered By: Dylan Mejias Admission Data Admit Date/Time: 05/10/24 15:01 Attending Provider: Dylan Mejias Admit Provider: Ken Beckman Primary Care Provider: PCP,NO Other Providers: Ken Beckman; Jase Bradford; Jairon Huizar; Noris Rowe; Lindsey Rivera; Bibiana Leija; Bettye Welch; Virginia Snowden; Abdoulaye Driver; Roland Costello; Delphine Kilpatrick; Samuel Moreno; Pipo Domínguez; Aspen Corral; Rubia Lewis; Tiffanie Milligan; Adele Guzman; Kasie Shaikh; Sandoval Rey; Tanya Sahu.; Filippo Posey Jr; Oswald Wilburn.; Guru Bartholomew; Wm Acosta; Sher Rivera; Patricia Houston.; Cooper Arnold I; Karyn Metz; Melecio Rdz; Todd Watt
[2024-05-12 15:54] VITALS: PULSE 73; TEMP 98.8
[2024-05-12] MEDS: GABAPENTIN 400 MG CAP PO SCH (16:17)
[2024-05-12 17:00] VITALS: BP 133/63
[2024-05-13 16:02] LABS: Codeine Urine NEGATIVE ng/mL (<50); Hydrocodone Urine NEGATIVE ng/mL (<50); Hydromor Urine NEGATIVE ng/mL (<50); Morphine Urine 688 ng/mL (<50); Norhydrocodone Conf Ur NEGATIVE ng/mL (<50); Noroxycodone Urine 285 ng/mL (<50); Oxycodone Urine 102 ng/mL (<50); Oxymorph Urine 64 ng/mL (<50)
[2024-05-14] MEDS ORDERED: GABAPENTIN 400 MG CAP PO SCH (06:00)
== END 2024-05-12 18:46 | disposition home or self-care (01) | DRG 542 ==
LOC: ED 09:13 → 2N 15:01 → SUATTDRO 15:01 → 2N 16:13